=== PATIENT | female | born 1940 | race Caucasian/White ===

== ENCOUNTER 2018-09-08 17:31 | Inpatient (IN) | END 2018-09-22 21:05 | DRG 981 ==

== ENCOUNTER 2018-10-05 06:46 | Inpatient (IN) | payer MEDICARE, OTHER ==
[~2018-10-05] VITALS: Ht 152.4 cm; Wt 60.6 kg
[2018-10-05] VITALS (62 sets, daily range): BP systolic 62–161; BP diastolic 28–91; PULSE 75–94; RESP 14–32; Ht 152.4 cm; Wt 60.6 kg
[~2018-10-05 06:46] MED LIST: ACET325T45 PO; AMIN30LI PO; ASPI-903 PO; ATOR-2 PO; CALC-686 PO; CARV12.579 PO; CHOL100062 PO; CLOP75TA19 PO; DEXT1DRO7 OP; FER325 PO; FLUT16SP17 NASAL; FOLI-49 PO; GLUC1KIT IJ; HYDR-3671 PO; HYDR-3672 PO; HYDR-4011 PO; INSU100C SQ; LACT10SO5 PO; LEVO50TA7 PO; LOSA100T15 PO; NEPH PO; PANT40TA4 PO; POLY17PO28 PO; VIT1TAB.4 PO; VIT1TABL46 PO; ZINC220T PO
[2018-10-05] MEDS ORDERED: SODIUM CHLORIDE 0.9% 1L BAG IV* STA (06:48)
[2018-10-05] MEDS ORDERED: VANCOMYCIN 1 GM (PMX) 250 ML IVPB STA (06:50)
[2018-10-05] MEDS ORDERED: CEFEPIME 2GM/50 ML (PMX) 50 ML IVPB STA (06:50)
[2018-10-05] MEDS ORDERED: NORepinephrine 8MG/250 ML (PMX 250 ML IV STA (06:50)
[2018-10-05] MEDS ORDERED: NORepinephrine 8MG/250 ML (PMX 250 ML ONE (06:54)
[2018-10-05] MEDS ORDERED: EPINEPHrine 0.1 MG/ML SYG ONE (07:00)
[2018-10-05] MEDS ORDERED: ROCURONIUM 50 MG INJ ONE (07:00)
[2018-10-05] MEDS ORDERED: NA BICARBONATE 8.4% 50 ML SYG ONE (07:00)
[2018-10-05] MEDS ORDERED: PROPOFOL 100 ML IV STA (07:30)
[2018-10-05] MEDS ORDERED: HYDR-4011 PO (08:19)
[2018-10-05] MEDS ORDERED: DEXT15DR4 BOTH EYES (08:20)
[2018-10-05] MEDS ORDERED: VANCOMYCIN IV PER PHARMACY XX SCH (09:00)
[2018-10-05] MEDS ORDERED: HEPARIN 5,000 UNIT/1 ML VIAL SC SCH ×2 (09:00→13:24)
[2018-10-05] MEDS ORDERED: ONDANSETRON 4 MG INJ IV PRN (09:00)
[2018-10-05] MEDS ORDERED: DOCUSATE SODIUM 100 MG CAP PO PRN (09:00)
[2018-10-05] MEDS ORDERED: ACETAMINOPHEN 650MG/20.3ML CUP PO PRN (09:00)
--- NOTE | 2018-10-05 09:10 | ERD ---
ER Documentation Chief Complaint Chief Complaint BIBA FOR RESPIRATORY DISTRESS FROM SNF HPI This is a 78-year-old female with a history of hypertension, renal failure on dialysis, diabetes who presents brought in from a intermediate facility for hypoxia and altered mental state. Patient was brought in by EMS, she presented technically hypoxic with an O2 sat in the 80s, history was limited given the acuity of her condition. She was initially trialed on BiPAP, pending preparation for intubation, she subsequently lost pulses, CPR was initiated for approximately 5 minutes, and she was intubated, subsequently ROSC was achieved. ROS All systems reviewed and are negative except as per history of present illness. Medications Home Meds Reported Medications Dextran 70/Hypromellose (Artificial Tears Eye Drops) 15 Ml Drops, 1 DROP BOTH EYES TID, BOTTLE 10/05/18 Hydrocodone/Acetaminophen (Divide 5-325 Tablet) 1 Each Tablet, 1 EACH PO Q4 PRN for MODERATE PAIN LEVEL 4-6, TAB 10/05/18 Atorvastatin* (Atorvastatin*) 80 Mg Tablet, 80 MG PO QHS, #30 TAB 09/08/18 Vitamin B Complex* (Vitamin B Complex*) 1 Each Tablet, 1 TAB PO DAILY, TAB 09/08/18 Ferrous Sulfate* (Ferrous Sulfate*) 325 Mg Tabec, 325 MG PO DAILY, TAB 09/08/18 Zinc Sulfate* (Zinc Sulfate*) 220 Mg Tablet, 220 MG PO DAILY, TAB 09/08/18 Cholecalciferol* (Vitamin D3*) 1,000 Unit Tablet, 2000 UNIT PO DAILY, TAB 09/08/18 Multivit/Ca Carb/B Cmplx/Fa* (Lizzy-Juanpablo*) 1 Tab Tab, 1 TAB PO DAILY, TAB 09/08/18 Folic Acid* (Folic Acid*) 1 Mg Tablet, 1 MG PO DAILY, TAB 09/08/18 Fluticasone Propionate* (Fluticasone Propionate* Nasal) 50 Mcg/Berry - 16 Gm Berry.susp, 1 SPRAY NASAL DAILY, #1 BOTTLE TO EACH NOSTRIL 09/08/18 Aspirin* (Aspirin* Chew) 81 Mg Tab.chew, 81 MG PO DAILY, TAB.CHEW 09/08/18 Clopidogrel Bisulfate* (Clopidogrel Bisulfate*) 75 Mg Tablet, 75 MG PO DAILY, #30 TAB 09/08/18 Vit B Complex & C No.13/Fa/D3 (NEPHROCAPS QT TABLET) 1 Each Tab.rapdis, 1 EACH PO BID 09/08/18 Hydralazine Hcl* (Hydralazine Hcl*) 50 Mg Tab, 50 MG PO TID, #90 TAB 09/08/18 Glucagon,Human Recombinant (Glucagon Emergency Kit) 1 Mg Kit, 1 MG IJ Q8H PRN for NEEDED, KIT 09/08/18 Acetaminophen* (Acetaminophen*) 325 Mg Tablet, 650 MG PO Q4H PRN for MILD PAIN LEVEL 1-3, #30 TAB AND FEVER GREATER THAN 100 DEGREES 09/08/18 Polyethylene Glycol* (Polyethylene Glycol*) 17 Gm Powd.pack, 17 GM PO BID, #60 PACKET 09/08/18 Lactulose* (Lactulose*) 10 Gm/15 Ml Solution, 15 ML PO BID, ML 09/08/18 Calcium Carbonate/Vitamin D3 (Calcium 500 mg Chewable Tablet) 1 Each Tab.chew, 1 EACH PO QHS, TAB.CHEW 09/08/18 Losartan Potassium* (Losartan Potassium*) 100 Mg Tablet, 100 MG PO DAILY, TAB 09/08/18 Hydralazine Hcl* (Hydralazine Hcl*) 25 Mg Tab, 25 MG PO Q6H PRN for HTN, #60 TAB 09/08/18 Amino Acids/Protein Hydrolys (PRO-STAT LIQUID) 30 Ml Liquid.pkt, 30 ML PO BID SUGAR FREE 09/08/18 Carvedilol* (Carvedilol*) 12.5 Mg Tablet, 12.5 MG PO BID, #60 TAB 09/08/18 Insulin Lispro (Humalog) 100 Unit/1 Ml Cartridge, 0 SQ SLIDING SCALE, EA IF BS 150-199=2 UNITS,200-249=3 UNITS,250-299=5 UNITS, 300-350=7 UNITS, OVER 350=10 UNITS, NOTIFY MD IF BS- BELOW 60 OR ABOVE-350 09/08/18 Levothyroxine Sodium* (Levothyroxine Sodium*) 50 Mcg Tablet, 50 MCG PO BEFORE BREAKFAST, #30 TAB 09/08/18 Pantoprazole* (Pantoprazole*) 40 Mg Tablet.dr, 40 MG PO AC BREAKFAST, TAB 09/08/18 Discontinued Reported Medications Dextran 70/Hypromellose/Pf (ARTIFICIAL TEARS DROPS) 1 Each Droperette, 1 EACH OP TID 09/08/18 Hydrocodone/Acetaminophen (Divide 5-325 Tablet) 1 Each Tablet, 1 EACH PO Q4H PRN for PAIN 4-03/12, TAB 09/08/18 Allergies Allergies: Coded Allergies: codeine (Verified Allergy, Mild, ANXIETY, 10/05/18) milk (Verified Allergy, Mild, GAS, 10/05/18) albuterol (Unverified Allergy, Unknown, 10/05/18) amlodipine (Unverified Allergy, Unknown, 10/05/18) clonidine (Unverified Allergy, Unknown, 10/05/18) diazepam (Unverified Allergy, Unknown, 10/05/18) diphenhydramine (Unverified Allergy, Unknown, 10/05/18) melatonin (Unverified Allergy, Unknown, 10/05/18) Uncoded Allergies: HEPARIN SODIUM (Allergy, Unknown, 09/08/18) NIFEDIPINE ER (Allergy, Unknown, 09/08/18) PMhx/Soc History of Surgery: Yes (hip surgery, eye surgery, left toes amputation. right knee surgery) Anesthesia Reaction: No Hx Neurological Disorder: No Hx Respiratory Disorders: No Hx Cardiac Disorders: Yes (HTN) Hx Psychiatric Problems: No Hx Miscellaneous Medical Probl: Yes (DM ESRD ON HD) Hx Alcohol Use: No (UNK) Hx Substance Use: No (UNK) Hx Tobacco Use: No (UNK) Smoking Status: Unknown if ever smoked Physical Exam Vitals Vital Signs Date Temp Pulse Resp B/P (MAP) Pulse Ox O2 O2 Flow FiO2 Time Delivery Rate 10/05/18 84 25 108/43 100 Mechanical 09:00 (64) Ventilator 10/05/18 92 24 138/46 100 Mechanical 08:45 (76) Ventilator 10/05/18 99.1 89 5 79/34 (49) 78 08:08 10/05/18 90 21 100 100 08:08 Physical Exam Const: Patient altered, ill-appearing, hot to the touch Head: Atraumatic Eyes: Normal Conjunctiva ENT: Normal External Ears, Nose and Mouth. Neck: Full range of motion. No meningismus. Resp: Coarse breath sounds bilaterally Cardio: Regular rate and rhythm, no murmurs Abd: Soft, non tender, non distended. Normal bowel sounds Skin: No petechiae or rashes Back: No midline or flank tenderness Ext: No cyanosis, or edema Neur: Minimally responsive Result Diagram: 10/05/18 0759 10/05/18 0759 Results 24 hrs Laboratory Tests Test 10/05/18 07:59 10/05/18 08:00 10/05/18 08:04 10/05/18 09:12 White Blood 27.9 10^3/ul Count Red Blood Count 2.83 10^6/ul Hemoglobin 8.2 g/dl Hematocrit 28.5 % Mean Corpuscular 100.7 fl Volume Mean Corpuscular 29.0 pg Hemoglobin Mean Corpuscular 28.8 g/dl Hemoglobin Meredith nt Red Cell 23.1 % Distribution Width Platelet Count 317 10^3/UL Mean Platelet 9.0 fl Volume Immature 1.300 % Granulocytes % Neutrophils % % Lymphocytes % % Monocytes % % Eosinophils % % Basophils % % Nucleated Red 1.7 /100WBC Blood Cells % Immature 0.350 10^3/ul Granulocytes # Neutrophils # 10^3/ul Lymphocytes # 10^3/ul Monocytes # 10^3/ul Eosinophils # 10^3/ul Basophils # 10^3/ul Nucleated Red 10^3/ul Blood Cells # Prothrombin Time 16.0 Sec Prothrombin Time 1.3 Ratio INR 1.27 International Normalized Ratio Activated 46.3 Sec Partial Thrombop last Time Sodium Level 138 mmol/L Potassium Level 3.8 mmol/L Chloride Level 103 mmol/L Carbon Dioxide 26 mmol/L Level Anion Gap 9 Blood Urea 39 mg/dl Nitrogen Creatinine 3.36 mg/dl Est Glomerular mL/min Filtrat Rate mL/min Glucose Level 207 mg/dl Calcium Level 8.7 mg/dl Troponin I 0.027 ng/ml Urine Color YELLOW Urine Clarity TURBID Urine pH 5.0 Urine Specific 1.021 [place] Urine Ketones NEGATIVE mg/dL Urine Nitrite NEGATIVE mg/dL Urine Bilirubin NEGATIVE mg/dL Urine NEGATIVE mg/dL Urobilinogen Urine Leukocyte 1+ Joan/ul Esterase Urine 27 /HPF Microscopic RBC Urine > 182 /HPF Microscopic WBC Urine Squamous FEW /HPF Epithelial Cells Urine Bacteria MANY /HPF Urine Hemoglobin 1+ mg/dL Urine Glucose NEGATIVE mg/dL Urine Total 2+ mg/dl Protein Blood Gas Blood arterial Specimen Source Arterial Blood 10/05/2018 8:38:3 Date Drawn 7 AM Arterial Blood 7.401 pH (Temp corrected) Arterial Blood 42.8 mmhg pCO2 (Temp correct) Arterial Blood 246.8 mmHG pO2 (Temp corrected) Arterial Blood 26.0 mmol/L HCO3 Arterial Blood 1.0 mmol/L Base Excess Arterial Blood 99.9 mmHG Oxygen Saturatio n Jacinto Test ACCEPTAB Arterial Blood Left Radial Gas Puncture Site Arterial 1.2 % Blood Carboxyhem oglobin Arterial Blood 0.3 % Methemoglobin Blood Gas A-a O2 423.4 mmHg Differential Oxyhemoglobin 98.4 % Percent Blood Gas 37.0 C Temperature Blood Gas 14.0 Respiration Rate Blood Gas Actual 22 Respiration Rate Blood Gas VENT - AC Modality FiO2 100.0 % Blood Gas Tidal 450.0 mL Volume Blood Gas Low 5.0 cmH2O PEEP Setting Blood Gas M.D. Notified Whom Blood Gas 10/05/2018 8:50:1 Notified Time 6 AM POC Venous 2.4 mmol/L Lactate Current Medications Medications Dose Sig/Brie Start Time Status Last (Trade) Ordered Route PRN Stop Time Admin Dose Reason Admin Sodium 1,000 ml BOLUS OVER 2 10/05/18 DC 10/05/18 Chloride HOURS STAT 06:48 10/05/18 07:53 (NS) IV* 06:51 250 ml @ ONCE STAT 10/05/18 10/05/18 Norepinephrin 7.5 mls/hr IV 06:50 10/06/18 07:56 e 16:09 Vancomycin 250 ml @ ONCE STAT 10/05/18 DC 10/05/18 HCl 125 mls/hr IVPB 06:50 10/05/18 06:50 08:49 Cefepime HCl 50 ml @ ONCE STAT 10/05/18 DC 10/05/18 100 mls/hr IVPB 06:50 10/05/18 07:59 07:19 250 ml @ ud STK-MED 10/05/18 DC Norepinephrin ONCE .ROUTE 06:54 10/05/18 e 06:55 Propofol 100 ml @ ONCE STAT 10/05/18 10/05/18 1.8 mls/hr IV 07:30 10/07/18 08:04 15:03 Sodium 1,000 ml @ Q20H IV 10/05/18 UNV Chloride 50 mls/hr 08:53 Ondansetron 4 mg Q6H PRN 10/05/18 UNV HCl (Zofran IV NAUSEA 09:00 Inj) AND/OR VOMITING 650 mg Q6H PRN 10/05/18 UNV Acetaminophen PO PAIN 09:00 (Tylenol LEVEL 1-3 OR Liquid) FEVER Docusate 100 mg Q12H PRN 10/05/18 UNV Sodium PO 09:00 (Colace) CONSTIPATION 40 mg DAILY@06 10/06/18 UNV Pantoprazole IV 06:00 (Protonix Iv) Heparin 5,000 unit Q12 SC 10/05/18 UNV Sodium 09:00 (Porcine) (Heparin (5000 Units/1ml)) Vancomycin VANCOMYCIN PER 10/05/18 UNV HCl (Vanco PER PHARMACY PROTOCOL XX 09:00 Iv Per Pharmacy) Piperacillin 50 ml @ Q8 IVPB 10/05/18 UNV Sod/ 100 mls/hr 14:00 Tazobactam Sod Procedures/MDM This is a 78-year-old female who presented brought in by EMS. She is evaluated immediately, and I observed her to be in shock, with hypoxia, hypotension and altered mental state. As noted above CPR was initiated, and return of spontaneous circulation was achieved, she was subsequently intubated and started on pressor support and given broad-spectrum antibiotics. Her urine returned positive, my overall impression is that she likely has urosepsis, which may have contributed to an aspiration event leading to hypoxia. She will be admitted to the ICU under Dr. Donahue. Sepsis Documentation: Patient's infectious symptoms have not stabilized and the patient is at risk of rapid decompensation. The patient will be admitted for careful hydration, antibiotic therapy, and infectious source control. SEVERE SEPSIS CRITERIA: Infectious source: Pyelonephritis End organ damage indicated by: Lactate greater than 2 and hypotension SEPSIS MANAGEMENT Time of recognition of sepsis: [Upon arrival]. Time of recognition of severe sepsis: [Upon arrival]. Time of recognition of septic shock: [Upon arrival]. 3 HOUR BUNDLE Blood cultures x 2 before broad-spectrum antibiotics: [Yes] 30 ml/kg NS bolus [Completed] Initial lactate [2.4] Repeat lactate pending SEPTIC SHOCK ASSESSMENT: [Yes] Persistent hypotension (SBP < 90 or 40 mmHg drop, MAP < 65) despite 30 mL/kg IV fluid bolus VOLUME REASSESSMENT FOR SEPTIC SHOCK: Reevaluation Time: 916 Temp [99 3], BP 108/63, HR [80, RR[25, Pox [100 Heart [Regular rate & rhythm] Lungs [No crackles] Skin [Warm & dry] Cap Refill [Less than 2 seconds] Peripheral pulses [Radially present] PERSISTENT HYPOTENSION TREATMENT: Comfort care [No] Central line [yes Vasopressor started [yes] I considered further perfusion assessment with CVP measurement, SCVO2, bedside ultrasound volume assessment, passive leg raise, trial of further fluid bolus. And proceeded with administration of antibiotics, vasopressors, and admission to the ICU CRITICAL CARE Critical care time [35] minutes Emergent fluid management while maintaining close respiratory support. Provision of immediate and broad-spectrum antibiotic therapy. Simultaneous assessment for possible sources in order to direct targeted therapy. Consideration for invasive and chemical support to prevent cardiopulmonary collapse. Critical care time is independent of procedures performed. Departure Diagnosis: Primary Impression: Respiratory distress Additional Impressions: Septic shock Pyelonephritis Condition: Critical CATARINO AUGUSTINE MD Oct 05, 2018 09:10
[2018-10-05] MEDS ORDERED: PIPER-TAZO 2.25 GM (PMX) 50 ML IVPB SCH (10:00)
--- NOTE | 2018-10-05 10:20 | HP ---
Date/Time of Note Date/Time of Note DATE: 10/05/18 TIME: 09:55 Assessment/Plan VTE Prophylaxis Pharmacological prophylaxis: heparin Lines/Catheters IV Catheter Type (from Nrsg): Central Line Central line still needed: Yes Urinary Cath still in place: Yes (INSERTED IN ED) Reason Cath still needed: other (indicate) Assessment/Plan Assessment/Plan 78 yo F with hx of Sacral decubiti stage 4, ESRD, DM2 and History of right knee fracture status post total knee arthroplasty with subsequent infection and removal of hardware who was sent from SNF for hypoxia. She was intubated in the ER and is requiring pressor support. She briefly arrested in ER amd was brought back. She is admitted to ICU and managed as follows: 1. Acute resp failure likely 2/2 to #2 -intubated and on Ventilator -patient may have aspirated, has copious drainage from NGT 2. Transient cardiac arrest with ROSC in ER -No hypothermia protocol at this time as patient was somewhat responsive though not alert 3. Sepsis with Shock -likely 2/2 UTI and probable DTI infection 4. ESRD on HD 5 Diabetes type 2 -Hyperglycemic on arrival, SSI for now till started on a diet -close monitoring and intervention as indicated 6. Multiple drug allergies -Nifedipine, Heparin, amlodipine, clonidine, diazepam, benadryl, melatonin 7. 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 Anemia of CKD -continue home iron and folic acid supplementation 9. Hypothyrodism -resume home synthroid, Last TSH was 2007, will recheck 10. History of right knee fracture status post total knee arthroplasty with subsequent infection and removal of hardware -Knee replacement and removal were done at an outside hospital - Maintain leg in extension per Dr Hedrick recommendations on last visit 11. Chronic constipation? -resume miralax gently, hold lactulose for now 12. Severe debility, FTT, diffuse msc wasting Dispo: -poor prognosis in [facility] [facility], spoke in detail with daughters -they will consider DNR now, I recommend comfort measures only as further aggressive intervention will not necessarily prolong the patient's life, they will discuss and get back to us -continue ICU care and support Result Diagram: 10/05/18 0759 10/05/18 0759 Results 24hrs Laboratory Tests Test 10/05/18 07:59 10/05/18 08:00 10/05/18 08:04 10/05/18 09:12 White Blood Count 27.9 #H Red Blood Count 2.83 L Hemoglobin 8.2 L Hematocrit 28.5 L Mean Corpuscular 100.7 Volume Mean Corpuscular 29.0 Hemoglobin Mean Corpuscular 28.8 L Hemoglobin Concent Red Cell 23.1 H Distribution Width Platelet Count 317 Mean Platelet 9.0 Volume Immature 1.300 H Granulocytes % Neutrophils % Lymphocytes % Monocytes % Eosinophils % Basophils % Nucleated Red 1.7 H Blood Cells % Immature 0.350 H Granulocytes # Neutrophils # Lymphocytes # Monocytes # Eosinophils # Basophils # Nucleated Red Blood Cells # Prothrombin Time 16.0 H Prothrombin Time 1.3 Ratio INR International 1.27 Normalized Ratio Activated 46.[address] Time Sodium Level 138 Potassium Level 3.8 Chloride Level 103 Carbon Dioxide 26 Level Anion Gap 9 Blood Urea 39 H Nitrogen Creatinine 3.36 H Est Glomerular Filtrat Rate mL/min Glucose Level 207 Calcium Level 8.7 Troponin I 0.027 Urine Color YELLOW Urine Clarity TURBID A Urine pH 5.0 Urine Specific 1.021 [place] Urine Ketones NEGATIVE Urine Nitrite NEGATIVE Urine Bilirubin NEGATIVE Urine Urobilinogen NEGATIVE Urine Leukocyte 1+ H Esterase Urine Microscopic 27 H RBC Urine Microscopic > 182 H WBC Urine Squamous FEW Epithelial Cells Urine Bacteria MANY A Urine Hemoglobin 1+ H Urine Glucose NEGATIVE Urine Total 2+ H Protein Blood Gas Specimen Blood arterial Source Arterial Blood 10/05/2018 8:38:37 Date Drawn AM Arterial Blood pH 7.401 (Temp corrected) Arterial Blood 42.8 pCO2 (Temp correct) Arterial Blood pO2 246.8 H (Temp corrected) Arterial Blood 26.0 HCO3 Arterial Blood 1.0 Base Excess Arterial Blood 99.9 Oxygen Saturation [place]into Test ACCEPTAB Arterial Blood Gas Left Radial Puncture Site Arterial 1.2 Blood Carboxyhemog lobin Arterial Blood 0.3 Methemoglobin Blood Gas A-a O2 423.4 H Differential Oxyhemoglobin 98.4 Percent Blood Gas 37.0 Temperature Blood Gas 14.0 Respiration Rate Blood Gas Actual 22 Respiration Rate Blood Gas Modality VENT - AC FiO2 100.0 Blood Gas Tidal 450.0 Volume Blood Gas Low PEEP 5.0 Setting Blood Gas Notified Talya Gonzalez Blood Gas Notified 10/05/2018 8:50:16 Time AM POC Venous Lactate 2.4 *H HPI/ROS Admit Date/Time Admit Date/Time 10/05/18 Hx of Present Illness End-stage renal disease, diabetes, and a right knee fracture status post total knee arthroplasty with hardware placement and then subsequent infection and removal of hardware for which knee is in extension on the right side. The patient is chronically none ambulance but the daughters say she is usually able to at least talk and eat, and she was referred to the rehab unit for continued care until earlier today when she was noted to be short of breath and hypoxic. Apparently her appetite has also been waning the last few days. Not much more was able to be obtained. The patient did have a lot of secretions from her G- tube and as such the thought processes she may have aspirated causing her respiratory distress. She had a transient cardiac arrest in the emergency room and was resuscitated with return of spontaneous circulation, she is currently ventilated and requiring pressor support.UA suggestive of UTI. Stage 4 sacral decubiti was debrided last admission. . ROS Subjective hx not possible: pt critical status PMH/Family/Social Past Medical History Sacral decubiti stage 4, ESRD, DM2 History of right knee fracture status post total knee arthroplasty with subseq uent infection and removal of hardware Medications Current Medications Norepinephrine 250 ml @ 7.5 mls/hr ONCE STAT IV Last administered on 10/05/18at 07:56; Admin Dose 9.375 MLS/HR; Start 10/05/18 at 06:50; Stop 10/06/18 at 16:09 Propofol 100 ml @ 1.8 mls/hr ONCE STAT IV Last administered on 10/05/18at 08:04; Admin Dose 1.8 MLS/HR; Start 10/05/18 at 07:30; Stop 10/07/18 at 15:03 Sodium Chloride 1,000 ml @ 50 mls/hr Q20H IV ; Start 10/05/18 at 08:53 Ondansetron HCl (Zofran Inj) 4 mg Q6H PRN IV NAUSEA AND/OR VOMITING; Start 10/05/18 at 09:00 Acetaminophen (Tylenol Liquid) 650 mg Q6H PRN PO PAIN LEVEL 1-3 OR FEVER; Start 10/05/18 at 09:00 Docusate Sodium (Colace) 100 mg Q12H PRN PO CONSTIPATION; Start 10/05/18 at 09:00 Pantoprazole (Protonix Iv) 40 mg DAILY@06 IV ; Start 10/06/18 at 06:00 Vancomycin HCl (Vanco Iv Per Pharmacy) VANCOMYCIN PER PHARMACY PER PROTOCOL XX ; Start 10/05/18 at 09:00; Status UNV Piperacillin Sod/ Tazobactam Sod 50 ml @ 100 mls/hr Q8 IVPB ; Start 10/05/18 at 10:00 Heparin Sodium (Porcine) (Heparin (5000 Units/1ml)) 5,000 unit Q12 SC ; Start 10/05/18 at 10:00; Status UNV Coded Allergies: codeine (Verified Allergy, Mild, ANXIETY, 10/09/18) milk (Verified Allergy, Mild, GAS, 10/09/18) albuterol (Verified Allergy, Unknown, 10/09/18) amlodipine (Verified Allergy, Unknown, 10/09/18) clonidine (Verified Allergy, Unknown, 10/09/18) diazepam (Verified Allergy, Unknown, 10/09/18) diphenhydramine (Verified Allergy, Unknown, 10/09/18) melatonin (Verified Allergy, Unknown, 10/09/18) Uncoded Allergies: HEPARIN SODIUM (Allergy, Unknown, 09/08/18) NIFEDIPINE ER (Allergy, Unknown, 09/08/18) Past Surgical History see above Past Surgical Hx: other Family History Significant Family History: no pertinent family hx Social History Smoking Status: Unknown if ever smoked Exam/Review of Systems Vital Signs Vitals Vital Signs Date Temp Pulse Resp B/P (MAP) Pulse Ox O2 O2 Flow FiO2 Time Delivery Rate 10/05/18 81 25 98/44 (62) 100 Mechanical 09:15 Ventilator 10/05/18 99.1 08:08 10/05/18 100 08:08 Exam Exam GENERAL: Intubated and sedated HEENT: VINCENT, Intubated, Vent settings noted , LUNGS: diffusely diminished and coarse BS HEART: S1, S2. No murmur, gallops or rubs. ABDOMEN: Soft, non distended, Normoactive bowel sounds. GENITOURINARY: Normal female external genitalia wilt mild vulval edema, Teixeira to bedside drainage EXTREMITIES: diffuse msc wasting, has jamal UE edema and anasarca in abd and UE NEUROLOGIC: The patient will try to open eyes off propofol SKIN: diffuses ecchymosis and skin tears, see pictures for sacral Ulcer YOEL DAVILA Oct 05, 2018 10:11
[2018-10-05] MEDS: SOD CHLORIDE 0.9% 1,000 ML IV SCH (10:44)
--- NOTE | 2018-10-05 11:05 | CONS ---
Date/Time of Note Date/Time of Note DATE: 10/05/18 TIME: 10:59 Assessment/Plan Assessment/Plan Assessment/Plan Chest x-ray showing bibasilar pneumonia. Ventilator setting; AC of 16, tidal volume 450, PEEP of 5, 60% FiO2. Assessment recommendations; 1. Patient admitted with respiratory failure with severe sepsis from UTI as well as bilateral lower lobe pneumonia. Currently on appropriate antimicrobial regimen. Requiring support with Levophed. 2. Advanced dementia. 3. Multiple sacral ulcers. Possibly another source of infection. 4. Status post 5 minutes CPR. 5. Chronic renal failure, on hemodialysis. Continue current supportive care. Hemodialysis per chandelier maker. Obtain follow-up chest x-ray 24 hours. Wean off pressor support as tolerated. Further antibiotic adjustment to be done once culture results are obtained. Patient already has multiple sources of infection. 40 minutes of critical care time was spent evaluating the patient. Result Diagram: 10/05/18 0759 10/05/18 0759 Results 24hrs Laboratory Tests Test 10/05/18 07:59 10/05/18 08:00 10/05/18 08:04 10/05/18 09:12 White Blood Count 27.9 #H Red Blood Count 2.83 L Hemoglobin 8.2 L Hematocrit 28.5 L Mean Corpuscular 100.7 Volume Mean Corpuscular 29.0 Hemoglobin Mean Corpuscular 28.8 L Hemoglobin Concent Red Cell 23.1 H Distribution Width Platelet Count 317 Mean Platelet 9.0 Volume Immature 1.300 H Granulocytes % Neutrophils % Segmented 65 Neutrophils % (Manual) Band Neutrophils % 22 H (Manual) Lymphocytes % Lymphocytes % 10 L (Manual) Monocytes % Monocytes % 3 (Manual) Eosinophils % Basophils % Nucleated Red 5 H Blood Cells % Immature 0.350 H Granulocytes # Neutrophils # Neutrophils # 19.8 H (Manual) Band Neutrophils # 6.1 H Lymphocytes 2.7 (Manual) Lymphocytes # Monocytes # Monocytes # 0.8 (Manual) Eosinophils # Basophils # Nucleated Red Blood Cells # Platelet Estimate NORMAL Polychromasia 1+ Poikilocytosis 2+ Anisocytosis 1+ Macrocytosis 1+ Prothrombin Time 16.0 H Prothrombin Time 1.3 Ratio INR International 1.27 Normalized Ratio Activated 46.[address] Time Sodium Level 138 Potassium Level 3.8 Chloride Level 103 Carbon Dioxide 26 Level Anion Gap 9 Blood Urea 39 H Nitrogen Creatinine 3.36 H Est Glomerular Filtrat Rate mL/min Glucose Level 207 Calcium Level 8.7 Troponin I 0.027 Urine Color YELLOW Urine Clarity TURBID A Urine pH 5.0 Urine Specific 1.021 [place] Urine Ketones NEGATIVE Urine Nitrite NEGATIVE Urine Bilirubin NEGATIVE Urine Urobilinogen NEGATIVE Urine Leukocyte 1+ H Esterase Urine Microscopic 27 H RBC Urine Microscopic > 182 H WBC Urine Squamous FEW Epithelial Cells Urine Bacteria MANY A Urine Hemoglobin 1+ H Urine Glucose NEGATIVE Urine Total 2+ H Protein Blood Gas Specimen Blood arterial Source Arterial Blood 10/05/2018 8:38:37 Date Drawn AM Arterial Blood pH 7.401 (Temp corrected) Arterial Blood 42.8 pCO2 (Temp correct) Arterial Blood pO2 246.8 H (Temp corrected) Arterial Blood 26.0 HCO3 Arterial Blood 1.0 Base Excess Arterial Blood 99.9 Oxygen Saturation Jacinto Test ACCEPTAB Arterial Blood Gas Left Radial Puncture Site Arterial 1.2 Blood Carboxyhemog lobin Arterial Blood 0.3 Methemoglobin Blood Gas A-a O2 423.4 H Differential Oxyhemoglobin 98.4 Percent Blood Gas 37.0 Temperature Blood Gas 14.0 Respiration Rate Blood Gas Actual 22 Respiration Rate Blood Gas Modality VENT - AC FiO2 100.0 Blood Gas Tidal 450.0 Volume Blood Gas Low PEEP 5.0 Setting Blood Gas Notified M.D. Whom Blood Gas Notified 10/05/2018 8:50:16 Time AM POC Venous Lactate 2.4 *H Consultation Date/Type/Reason Admit Date/Time 10/05/18 Date of Consultation: Oct 05, 2018 Type of Consult Pulmonary/critical care History of presenting illness; patient is a 78-year-old woman who was transferred to ER from long term with hypotension. Upon further evaluation patient is been diagnosed with bilateral pneumonia as well as UTI with sepsis. Patient has been adequately fluid resuscitated but still requiring Levophed for hypotension. Patient has history of chronic encephalopathy and is currently under sedation. Past medical history; 1. History of dementia and chronic encephalopathy. 2. History of diabetes and hypothyroidism. Medications; reviewed. Patient is currently on Levophed at 11 mics per minute. Propofol at 10 mics per kilogram per minute. Allergies; as outlined above. Social history; not available. Family history; not available. Occupational history; not available. Review of system; unable to be obtained. General exam; elderly woman, orally intubated, sedated, currently in no distress. Past Medical History Medications Current Medications Norepinephrine 250 ml @ 7.5 mls/hr ONCE STAT IV Last administered on 10/05/18at 07:56; Admin Dose 9.375 MLS/HR; Start 10/05/18 at 06:50; Stop 10/06/18 at 16:09 Propofol 100 ml @ 1.8 mls/hr ONCE STAT IV Last administered on 10/05/18at 08:04; Admin Dose 1.8 MLS/HR; Start 10/05/18 at 07:30; Stop 10/07/18 at 15:03 Sodium Chloride 1,000 ml @ 50 mls/hr Q20H IV Last administered on 10/05/18at 10:44; Admin Dose 50 MLS/HR; Start 10/05/18 at 08:53 Ondansetron HCl (Zofran Inj) 4 mg Q6H PRN IV NAUSEA AND/OR VOMITING; Start 10/05/18 at 09:00 Acetaminophen (Tylenol Liquid) 650 mg Q6H PRN PO PAIN LEVEL 1-3 OR FEVER; Start 10/05/18 at 09:00 Docusate Sodium (Colace) 100 mg Q12H PRN PO CONSTIPATION; Start 10/05/18 at 09:00 Pantoprazole (Protonix Iv) 40 mg DAILY@06 IV ; Start 10/06/18 at 06:00 Heparin Sodium (Porcine) (Heparin (5000 Units/1ml)) 5,000 unit Q12 SC ; Start 10/05/18 at 10:00; Status UNV Aspirin (Aspirin) 81 mg DAILY PO ; Start 10/06/18 at 09:00; Status UNV Atorvastatin Calcium (Lipitor) 80 mg QHS PO ; Start 10/05/18 at 21:00; Status UNV Cholecalciferol (Vitamin D) 2,000 unit DAILY PO ; Start 10/06/18 at 09:00; Status UNV Clopidogrel Bisulfate (plaVIX) 75 mg DAILY PO ; Start 10/06/18 at 09:00; Status UNV Ferrous Sulfate (Ferrous Sulfate (Ec)) 325 mg BID PO ; Start 10/05/18 at 21:00; Status UNV Folic Acid (Folic Acid) 1 mg DAILY PO ; Start 10/06/18 at 09:00; Status UNV Levothyroxine Sodium (Synthroid) 50 mcg BEFORE BREAKFAST PO ; Start 10/06/18 at 07:00; Status UNV Multivit/Ca Carb/ B Cmplx/FA/Prenat (Lizzy-Juanpablo) 1 tab DAILY PO ; Start 10/06/18 at 09:00; Status UNV Polyethylene Glycol (Miralax) 17 gm DAILY PO ; Start 10/06/18 at 09:00; Status UNV Vitamin B Complex/ Vitamin C (Berocca) 1 cap DAILY PO ; Start 10/06/18 at 09:00; Status UNV Zinc Sulfate (Zinc Sulfate) 220 mg DAILY PO ; Start 10/06/18 at 09:00; Status UNV Miscellaneous Information 30 ml BID PO ; Start 10/05/18 at 21:00; Status UNV Miscellaneous Information 1 each QHS PO ; Start 10/05/18 at 21:00; Status UNV Miscellaneous Information 1 drop TID BOTH EYES ; Start 10/05/18 at 13:00; Status UNV Linezolid 300 ml @ 300 mls/hr Q12 IVPB ; Start 10/05/18 at 21:00; Status UNV Meropenem/Sodium Chloride 50 ml @ 100 mls/hr Q12 IVPB ; Start 10/05/18 at 11:00; Status UNV Allergies: Coded Allergies: codeine (Verified Allergy, Mild, ANXIETY, 10/05/18) milk (Verified Allergy, Mild, GAS, 10/05/18) albuterol (Unverified Allergy, Unknown, 10/05/18) amlodipine (Unverified Allergy, Unknown, 10/05/18) clonidine (Unverified Allergy, Unknown, 10/05/18) diazepam (Unverified Allergy, Unknown, 10/05/18) diphenhydramine (Unverified Allergy, Unknown, 10/05/18) melatonin (Unverified Allergy, Unknown, 10/05/18) Uncoded Allergies: HEPARIN SODIUM (Allergy, Unknown, 09/08/18) NIFEDIPINE ER (Allergy, Unknown, 09/08/18) Past Surgical History Past Surgical Hx: other Social History Smoking Status: Unknown if ever smoked Exam/Review of Systems Vital Signs Vitals Vital Signs Date Temp Pulse Resp B/P (MAP) Pulse Ox O2 O2 Flow FiO2 Time Delivery Rate 10/05/18 84 10:35 10/05/18 25 98/44 (62) 100 Mechanical 09:15 Ventilator 10/05/18 99.1 08:08 10/05/18 100 08:08 Exam HEENT exam; supple neck, no JVD. No lymphadenopathy. Midline trachea. No thyromegaly. Orally intubated. Patient has fair dentition. No neck masses. Pupils are small bilaterally. Chest exam; diminished breath sounds on bases. Upper lobes are clear. S1-S2 audible, no murmurs. Regular rhythm. Abdomen exam; soft, no organomegaly. Bowel sounds audible. Extremity exam; no peripheral edema. Patient has left middle toe amputations. DRUG COUNSELOR exam; patient is sedated. Medications Medications Current Medications Norepinephrine 250 ml @ 7.5 mls/hr ONCE STAT IV Last administered on 10/05/18at 07:56; Admin Dose 9.375 MLS/HR; Start 10/05/18 at 06:50; Stop 10/06/18 at 16:09 Propofol 100 ml @ 1.8 mls/hr ONCE STAT IV Last administered on 10/05/18at 08:04; Admin Dose 1.8 MLS/HR; Start 10/05/18 at 07:30; Stop 10/07/18 at 15:03 Sodium Chloride 1,000 ml @ 50 mls/hr Q20H IV Last administered on 10/05/18at 10:44; Admin Dose 50 MLS/HR; Start 10/05/18 at 08:53 Ondansetron HCl (Zofran Inj) 4 mg Q6H PRN IV NAUSEA AND/OR VOMITING; Start 10/05/18 at 09:00 Acetaminophen (Tylenol Liquid) 650 mg Q6H PRN PO PAIN LEVEL 1-3 OR FEVER; Start 10/05/18 at 09:00 Docusate Sodium (Colace) 100 mg Q12H PRN PO CONSTIPATION; Start 10/05/18 at 09:00 Pantoprazole (Protonix Iv) 40 mg DAILY@06 IV ; Start 10/06/18 at 06:00 Heparin Sodium (Porcine) (Heparin (5000 Units/1ml)) 5,000 unit Q12 SC ; Start 10/05/18 at 10:00; Status UNV Aspirin (Aspirin) 81 mg DAILY PO ; Start 10/06/18 at 09:00; Status UNV Atorvastatin Calcium (Lipitor) 80 mg QHS PO ; Start 10/05/18 at 21:00; Status UNV Cholecalciferol (Vitamin D) 2,000 unit DAILY PO ; Start 10/06/18 at 09:00; Status UNV Clopidogrel Bisulfate (plaVIX) 75 mg DAILY PO ; Start 10/06/18 at 09:00; Status UNV Ferrous Sulfate (Ferrous Sulfate (Ec)) 325 mg BID PO ; Start 10/05/18 at 21:00; Status UNV Folic Acid (Folic Acid) 1 mg DAILY PO ; Start 10/06/18 at 09:00; Status UNV Levothyroxine Sodium (Synthroid) 50 mcg BEFORE BREAKFAST PO ; Start 10/06/18 at 07:00; Status UNV Multivit/Ca Carb/ B Cmplx/FA/Prenat (Lizzy-Juanpablo) 1 tab DAILY PO ; Start 10/06/18 at 09:00; Status UNV Polyethylene Glycol (Miralax) 17 gm DAILY PO ; Start 10/06/18 at 09:00; Status UNV Vitamin B Complex/ Vitamin C (Berocca) 1 cap DAILY PO ; Start 10/06/18 at 09:00; Status UNV Zinc Sulfate (Zinc Sulfate) 220 mg DAILY PO ; Start 10/06/18 at 09:00; Status UNV Miscellaneous Information 30 ml BID PO ; Start 10/05/18 at 21:00; Status UNV Miscellaneous Information 1 each QHS PO ; Start 10/05/18 at 21:00; Status UNV Miscellaneous Information 1 drop TID BOTH EYES ; Start 10/05/18 at 13:00; Status UNV Linezolid 300 ml @ 300 mls/hr Q12 IVPB ; Start 10/05/18 at 21:00; Status UNV Meropenem/Sodium Chloride 50 ml @ 100 mls/hr Q12 IVPB ; Start 10/05/18 at 11:00; Status UNV VLAD MARTIN Oct 05, 2018 11:05
[2018-10-05] MEDS: LINEZOLID 600 MG/D5W (PMX) 300 ML IVPB SCH ×2 (12:41→22:08)
[2018-10-05] MEDS ORDERED: PENDING SANTYL ORDER FOR WOUND CARE XX PRN (13:00)
--- NOTE | 2018-10-05 13:22 | CONS ---
Date/Time of Note Date/Time of Note DATE: 10/05/18 TIME: 13:19 Assessment/Plan Assessment/Plan Assessment/Plan 78 yo Female with 1) Hypoxia with Respiratory Failure 2) Severe Sepsis 3) S/p Cardiac Arrest with ROSC 4) ESRD on HD 5) Anemia, Chronic CKD HD ordered for today Gentle treatment today Keep Even for now Repeat BMP, Lactic acid, Check Mg and phos Cont supportive Care, HD catheter Care. Levophed PRN for BP support Pt code status changed to DNR Thank you for the opportunity to participate in the care of Ms Augustus HENSLEY time spent >35 min. Result Diagram: 10/05/18 0759 10/05/18 0759 Results 24hrs Laboratory Tests Test 10/05/18 07:59 10/05/18 08:00 10/05/18 08:04 10/05/18 09:12 White Blood Count 27.9 #H Red Blood Count 2.83 L Hemoglobin 8.2 L Hematocrit 28.5 L Mean Corpuscular 100.7 Volume Mean Corpuscular 29.0 Hemoglobin Mean Corpuscular 28.8 L Hemoglobin Concent Red Cell 23.1 H Distribution Width Platelet Count 317 Mean Platelet 9.0 Volume Immature 1.300 H Granulocytes % Neutrophils % Segmented 65 Neutrophils % (Manual) Band Neutrophils % 22 H (Manual) Lymphocytes % Lymphocytes % 10 L (Manual) Monocytes % Monocytes % 3 (Manual) Eosinophils % Basophils % Nucleated Red 5 H Blood Cells % Immature 0.350 H Granulocytes # Neutrophils # Neutrophils # 19.8 H (Manual) Band Neutrophils # 6.1 H Lymphocytes 2.7 (Manual) Lymphocytes # Monocytes # Monocytes # 0.8 (Manual) Eosinophils # Basophils # Nucleated Red Blood Cells # Platelet Estimate NORMAL Polychromasia 1+ Poikilocytosis 2+ Anisocytosis 1+ Macrocytosis 1+ Prothrombin Time 16.0 H Prothrombin Time 1.3 Ratio INR International 1.27 Normalized Ratio Activated 46.[address] Time Sodium Level 138 Potassium Level 3.8 Chloride Level 103 Carbon Dioxide 26 Level Anion Gap 9 Blood Urea 39 H Nitrogen Creatinine 3.36 H Est Glomerular Filtrat Rate mL/min Glucose Level 207 Calcium Level 8.7 Troponin I 0.027 Urine Color YELLOW Urine Clarity TURBID A Urine pH 5.0 Urine Specific 1.021 [place] Urine Ketones NEGATIVE Urine Nitrite NEGATIVE Urine Bilirubin NEGATIVE Urine Urobilinogen NEGATIVE Urine Leukocyte 1+ H Esterase Urine Microscopic 27 H RBC Urine Microscopic > 182 H WBC Urine Squamous FEW Epithelial Cells Urine Bacteria MANY A Urine Hemoglobin 1+ H Urine Glucose NEGATIVE Urine Total 2+ H Protein Blood Gas Specimen Blood arterial Source Arterial Blood 10/05/2018 8:38:37 Date Drawn AM Arterial Blood pH 7.401 (Temp corrected) Arterial Blood 42.8 pCO2 (Temp correct) Arterial Blood pO2 246.8 H (Temp corrected) Arterial Blood 26.0 HCO3 Arterial Blood 1.0 Base Excess Arterial Blood 99.9 Oxygen Saturation Jacinto Test ACCEPTAB Arterial Blood Gas Left Radial Puncture Site Arterial 1.2 Blood Carboxyhemog lobin Arterial Blood 0.3 Methemoglobin Blood Gas A-a O2 423.4 H Differential Oxyhemoglobin 98.4 Percent Blood Gas 37.0 Temperature Blood Gas 14.0 Respiration Rate Blood Gas Actual 22 Respiration Rate Blood Gas Modality VENT - AC FiO2 100.0 Blood Gas Tidal 450.0 Volume Blood Gas Low PEEP 5.0 Setting Blood Gas Notified M.D. Whom Blood Gas Notified 10/05/2018 8:50:16 Time AM POC Venous Lactate 2.4 *H Test 10/05/18 11:07 Lactic Acid Level 2.4 *H Consultation Date/Type/Reason Admit Date/Time 10/05/18 Date of Consultation: Oct 05, 2018 Type of Consult Nephrology Reason for Consultation ESRD, HD Requesting Provider: YOEL DAVILA Hx of Present Illness 78-year-old female with a history of hypertension, ESRD on dialysis every TTS at [facility], last HD was this past Tuesday and Tuesday last week due to holiday schedule, who presented in from detention facility for hypoxia and altered mental state. She was found to be hypoxic with an O2 sat in the 80s requiring BiPAP however had cardiac arrest with CPR for approximately 5 minutes with ROSC, and she was subsequently intubated. Pt is due for HD today. Nephrology consulted for Management of ESRD. Subjective hx not possible: pt critical status Constitutional: requiring O2 Additional Comments Unable to obtain, Intubated Past Medical History Medical History: congestive heart failure, coronary artery disease, diabetes, hypertension, renal disease (ESRD) Medications Current Medications Norepinephrine 250 ml @ 7.5 mls/hr ONCE STAT IV Last administered on 10/05/18at 07:56; Admin Dose 9.375 MLS/HR; Start 10/05/18 at 06:50; Stop 10/06/18 at 16:09 Propofol 100 ml @ 1.8 mls/hr ONCE STAT IV Last administered on 10/05/18at 08:04; Admin Dose 1.8 MLS/HR; Start 10/05/18 at 07:30; Stop 10/07/18 at 15:03 Sodium Chloride 1,000 ml @ 50 mls/hr Q20H IV Last administered on 10/05/18at 10:44; Admin Dose 50 MLS/HR; Start 10/05/18 at 08:53 Ondansetron HCl (Zofran Inj) 4 mg Q6H PRN IV NAUSEA AND/OR VOMITING; Start 10/05/18 at 09:00 Acetaminophen (Tylenol Liquid) 650 mg Q6H PRN PO PAIN LEVEL 1-3 OR FEVER; Start 10/05/18 at 09:00 Docusate Sodium (Colace) 100 mg Q12H PRN PO CONSTIPATION; Start 10/05/18 at 09:00 Pantoprazole (Protonix Iv) 40 mg DAILY@06 IV ; Start 10/06/18 at 06:00 Heparin Sodium (Porcine) (Heparin (5000 Units/1ml)) 5,000 unit Q12 SC ; Start 10/05/18 at 10:00; Status UNV Aspirin (Aspirin) 81 mg DAILY PO ; Start 10/06/18 at 09:00 Atorvastatin Calcium (Lipitor) 80 mg QHS PO ; Start 10/05/18 at 21:00 Cholecalciferol (Vitamin D) 2,000 unit DAILY PO ; Start 10/06/18 at 09:00 Clopidogrel Bisulfate (plaVIX) 75 mg DAILY PO ; Start 10/06/18 at 09:00 Ferrous Sulfate (Ferrous Sulfate (Ec)) 325 mg BID PO ; Start 10/05/18 at 21:00 Folic Acid (Folic Acid) 1 mg DAILY PO ; Start 10/06/18 at 09:00 Levothyroxine Sodium (Synthroid) 50 mcg BEFORE BREAKFAST PO ; Start 10/06/18 at 07:00 Multivit/Ca Carb/ B Cmplx/FA/Prenat (Lizzy-Juanpablo) 1 tab DAILY PO ; Start 10/06/18 at 09:00 Polyethylene Glycol (Miralax) 17 gm DAILY PO ; Start 10/06/18 at 09:00 Vitamin B Complex/ Vitamin C (Berocca) 1 cap DAILY PO ; Start 10/06/18 at 09:00 Zinc Sulfate (Zinc Sulfate) 220 mg DAILY PO ; Start 10/06/18 at 09:00 Calcium/Vitamin D (Oyster Shell/ Vit-D (500/200)) 1 tab QHS PO ; Start 10/05/18 at 21:00 Eye Lubricant (Artificial Tears Oph) 1 drop TID BOTH EYES ; Start 10/05/18 at 14:00 Linezolid 300 ml @ 300 mls/hr Q12 IVPB Last administered on 10/05/18at 12:41; A dmin Dose 300 MLS/HR; Start 10/05/18 at 12:30 Meropenem/Sodium Chloride 50 ml @ 100 mls/hr Q12 IVPB ; Start 10/05/18 at 11:00; Status UNV Miscellaneous Information (Pending [facility] Order For Wound Care) This patient sams... PRN PRN XX SLOUGH/SOILED; Start 10/05/18 at 13:00; Status UNV Allergies: Coded Allergies: codeine (Verified Allergy, Mild, ANXIETY, 10/05/18) milk (Verified Allergy, Mild, GAS, 10/05/18) albuterol (Unverified Allergy, Unknown, 10/05/18) amlodipine (Unverified Allergy, Unknown, 10/05/18) clonidine (Unverified Allergy, Unknown, 10/05/18) diazepam (Unverified Allergy, Unknown, 10/05/18) diphenhydramine (Unverified Allergy, Unknown, 10/05/18) melatonin (Unverified Allergy, Unknown, 10/05/18) Uncoded Allergies: HEPARIN SODIUM (Allergy, Unknown, 09/08/18) NIFEDIPINE ER (Allergy, Unknown, 09/08/18) Past Surgical History RT Chest PC Past Surgical Hx: other Family History Significant Family History: no pertinent family hx Social History Alcohol Use: none Smoking Status: Never smoker Drug Use: none Exam/Review of Systems Vital Signs Vitals Vital Signs Date Temp Pulse Resp B/P (MAP) Pulse Ox O2 O2 Flow FiO2 Time Delivery Rate 10/05/18 86 12:00 10/05/18 40 11:00 10/05/18 25 98/44 (62) 100 Mechanical 09:15 Ventilator 10/05/18 99.1 08:08 Exam Constitutional: other (Intubated and sedated, Daughter at bedside. ) ENMT: mucosa pink and moist, intubated Neck: No jvd Respiratory: crackles/rales; No diminished breath sounds, No labored breathing Cardiovascular: No regular rate and rhythm Gastrointestinal: soft; No distended, No rebound or guarding Neurological: unresponsive (sedated) Skin: No diaphoresis Medications Medications Current Medications Norepinephrine 250 ml @ 7.5 mls/hr ONCE STAT IV Last administered on 10/05/18at 07:56; Admin Dose 9.375 MLS/HR; Start 10/05/18 at 06:50; Stop 10/06/18 at 16:09 Propofol 100 ml @ 1.8 mls/hr ONCE STAT IV Last administered on 10/05/18at 08: 04; Admin Dose 1.8 MLS/HR; Start 10/05/18 at 07:30; Stop 10/07/18 at 15:03 Sodium Chloride 1,000 ml @ 50 mls/hr Q20H IV Last administered on 10/05/18at 10:44; Admin Dose 50 MLS/HR; Start 10/05/18 at 08:53 Ondansetron HCl (Zofran Inj) 4 mg Q6H PRN IV NAUSEA AND/OR VOMITING; Start 10/05/18 at 09:00 Acetaminophen (Tylenol Liquid) 650 mg Q6H PRN PO PAIN LEVEL 1-3 OR FEVER; Start 10/05/18 at 09:00 Docusate Sodium (Colace) 100 mg Q12H PRN PO CONSTIPATION; Start 10/05/18 at 09:00 Pantoprazole (Protonix Iv) 40 mg DAILY@06 IV ; Start 10/06/18 at 06:00 Heparin Sodium (Porcine) (Heparin (5000 Units/1ml)) 5,000 unit Q12 SC ; Start 10/05/18 at 10:00; Status UNV Aspirin (Aspirin) 81 mg DAILY PO ; Start 10/06/18 at 09:00 Atorvastatin Calcium (Lipitor) 80 mg QHS PO ; Start 10/05/18 at 21:00 Cholecalciferol (Vitamin D) 2,000 unit DAILY PO ; Start 10/06/18 at 09:00 Clopidogrel Bisulfate (plaVIX) 75 mg DAILY PO ; Start 10/06/18 at 09:00 Ferrous Sulfate (Ferrous Sulfate (Ec)) 325 mg BID PO ; Start 10/05/18 at 21:00 Folic Acid (Folic Acid) 1 mg DAILY PO ; Start 10/06/18 at 09:00 Levothyroxine Sodium (Synthroid) 50 mcg BEFORE BREAKFAST PO ; Start 10/06/18 at 07:00 Multivit/Ca Carb/ B Cmplx/FA/Prenat (Lizzy-Juanpablo) 1 tab DAILY PO ; Start 10/06/18 at 09:00 Polyethylene Glycol (Miralax) 17 gm DAILY PO ; Start 10/06/18 at 09:00 Vitamin B Complex/ Vitamin C (Berocca) 1 cap DAILY PO ; Start 10/06/18 at 09:00 Zinc Sulfate (Zinc Sulfate) 220 mg DAILY PO ; Start 10/06/18 at 09:00 Calcium/Vitamin D (Oyster Shell/ Vit-D (500/200)) 1 tab QHS PO ; Start 10/05/18 at 21:00 Eye Lubricant (Artificial Tears Oph) 1 drop TID BOTH EYES ; Start 10/05/18 at 14:00 Linezolid 300 ml @ 300 mls/hr Q12 IVPB Last administered on 10/05/18at 12:41; Admin Dose 300 MLS/HR; Start 10/05/18 at 12:30 Meropenem/Sodium Chloride 50 ml @ 100 mls/hr Q12 IVPB ; Start 10/05/18 at 11:00; Status UNV Miscellaneous Information (Pending [facility] Order For Wound Care) This patient sams... PRN PRN XX SLOUGH/SOILED; Start 10/05/18 at 13:00; Status UNV Imaging Imaging PROCEDURE: XR Chest. CLINICAL INDICATION: Check endotracheal tube and line position. TECHNIQUE: Single frontal view. COMPARISON: September 12, 2018. FINDINGS: The endotracheal tube has been inserted in satisfactory position with the tip 4.5 cm above the wang. The left internal jugular vein catheter tip is in satisfactory position at the level of the cavoatrial junction. There is a right internal jugular vein tunneled dialysis catheter with the tip in the cavoatrial junction. Previously noted left internal jugular vein dialysis catheter has been removed. There is interstitial disease bilaterally consistent with pulmonary edema, impr reno. The heart size is normal. There is calcification in the aorta consistent with atherosclerosis. Small bilateral pleural effusions are improved. There is no pneumothorax. IMPRESSION: 1. Improved appearance of the lungs and smaller bilateral pleural effusions. 2. Endotracheal tube, left internal jugular vein catheter, and tunneled dialysis catheter in satisfactory position. 3. Otherwise unremarkable chest radiograph. RPTAT: QQ .Leonard Victoria MD, MD Date Time Electronically viewed and signed by .Leonard Victoria MD, MD on 10/05/2018 07:45 KATHIA SULLIVAN MD Oct 05, 2018 13:22
[2018-10-05] MEDS ORDERED: morphine SULFATE/PF (2 MG/2 ML) SYG IV PRN (15:00)
[2018-10-05] MEDS ORDERED: ALTEPLASE (CATHFLO) 2 MG INJ CATHETER ONE (15:30)
[2018-10-05] MEDS ORDERED: COLLAGENASE 5 GM (UD JAR) TOP PRN (15:39)
[2018-10-05] MEDS: MEROPENEM 500MG/50 ML (PMX) 50 ML IVPB SCH ×2 (15:41→23:15)
[2018-10-05] MEDS: COLLAGENASE 5 GM (UD JAR) TOP SCH ×2 (15:41→20:18)
[2018-10-05] MEDS: ARTIFICIAL TEARS 15 ML OPH BOTH EYES SCH ×2 (15:41→22:19)
[2018-10-05] MEDS ORDERED: DEXTROSE 50% 50 ML SYRINGE IV PRN ×2 (18:30)
[2018-10-05] MEDS ORDERED: INSULIN HUMAN REGULAR 100 UNIT in SOD CHLORIDE 0.9% 99 ML IV SCH (19:00)
[2018-10-05] MEDS: ACCU-CHEK XX SCH ×6 (20:00→23:58)
[2018-10-05] MEDS: ATORVASTATIN 80 MG TAB PO SCH (20:09)
[2018-10-05] MEDS: FERROUS SULFATE (EC) 325 MG TAB PO SCH (20:09)
--- NOTE | 2018-10-05 20:18 | CONS ---
DATE OF ADMISSION: 10/05/2018 DATE OF CONSULTATION: 10/05/2018 REASON FOR CONSULTATION: Antibiotic management. HISTORY OF PRESENT ILLNESS: Radha Coffman is a 78-year-old female who comes in, brought in by ambulance for respiratory distress from senior living facility. Her past problems include: 1. Hypertension. 2. End-stage renal disease on hemodialysis. 3. Diabetes. 4. Status post hip surgery. 5. Eye surgery. 6. Left toe amputations. 7. Right knee surgery. Acutely, the patient comes in with hypoxemia and altered mental status. She was brought in from [facility] with her oxygen saturation in the 80s. She was initially tried on BiPAP pending preparation for intubation. She lost her pulse. CPR was initiated for approximately 5 minutes. Sh amanda was intubated and subsequently returned of systemic circulation was achieved. The patient was then placed in the ICU. PAST MEDICAL HISTORY: As outlined. FAMILY HISTORY: Noncontributory. SOCIAL HISTORY: She does not smoke, drink or abuse drugs. She lives in a senior living facility. ALLERGIES: 1. CODEINE. 2. MILK 3. ALBUTEROL. 4. AMLODIPINE. 5. CLONIDINE. 6. DIAZEPAM. 7. DIPHENHYDRAMINE. 8. MELATONIN. 9. HEPARIN. 10. NIFEDIPINE. MEDICATIONS: Per chart. REVIEW OF SYSTEMS: As outlined. PHYSICAL EXAMINATION: GENERAL: The patient is an ill-appearing female who is obtunded on a respirator. VITAL SIGNS: T-max 99.1, blood pressure is 80/40. SKIN: Warm to the touch. HEENT: Within normal limits. NECK: Supple. LYMPH NODES: None palpable. CHEST: Decreased breath sounds at the bases. HEART: Without murmur or gallop. ABDOMEN: Soft, nontender, without organosplenomegaly or masses. EXTREMITIES: Without cyanosis, clubbing, or edema. RECTAL AND GENITAL: Deferred. NEUROLOGIC: The patient was minimally responsive. ANCILLARY LABORATORY DATA: White count 27.9, H and H of 8.2 and 28.5, platelet count 317,000. BUN a nd creatinine 39/3.36, glucose random was 207. White count as noted was 27.9. She was placed on van comycin, cefepime, norepinephrine, propofol. Her urinalysis showed 1+ leukocytosis greater than 182 white cells per high powered field. Her chest x-ray showed improved appearance of the lungs with sma ll bilateral pleural effusions. An endotracheal tube was in place left internal jugular vein cathete r and tunneled dialysis catheter in satisfactory position, so she has a left internal jugular cathete r and a right internal jugular vein tunneled dialysis catheter. Previously noted left internal jugul ar vein dialysis catheter was removed. IMPRESSION AND PLAN: The patient is in septic shock with acute respiratory failure, probably seconda ry to urinary tract infection with sepsis and shock. The patient is currently on vancomycin that was switched to linezolid and meropenem since she had VRE in the wound on her last admission. I concur with the current regimen. I will dictate my findings to the hospitalist. I want to thank Dr. Pierre. I want to thank the hospitalist for asking me to see this hebert lady in consultation. As note, th e patient may also have bilateral lower lobe pneumonia, possibly related to aspiration pneumonia, so we are treating UTI and bilateral lower lobe pneumonia. She is being supported with Levophed. She a lso has advanced dementia. She is status post 5 minutes CPR, multiple sacral ulcers, chronic renal f ailure. I will dictate my findings to the hospitalist and Dr. Pierre. Dictated By: KIMO QUINN MD, JD/SKIP Conf#: [id number] DID#: [id number] CC: YOEL DAVILA MD;*EndCC*
[2018-10-05] MEDS ORDERED: NON-FORMULARY/PATIENT OWN MED (Amino Acids/Protein Hydrolys (Pro-Stat Liquid) 30 ML) PO SCH (21:00)
[2018-10-05] MEDS ORDERED: CALCIUM/VITAMIN D (500/200) TAB PO SCH (21:00)
[2018-10-05] MEDS: NORepinephrine 8MG/250 ML (PMX 250 ML IV SCH (23:14)
[2018-10-06] VITALS (106 sets, daily range): BP systolic 70–192; BP diastolic 31–58; PULSE 69–95; RESP 3–32
[2018-10-06] MEDS: ACCU-CHEK XX SCH ×15 (01:18→14:56)
[2018-10-06] MEDS ORDERED: PANTOPRAZOLE 40 MG INJ IV SCH (06:00)
[2018-10-06] MEDS: SOD CHLORIDE 0.9% 1,000 ML IV SCH (06:39)
[2018-10-06] MEDS: LEVOTHYROXINE 50 MCG TAB PO SCH (07:00)
--- NOTE | 2018-10-06 08:35 | CONS ---
Date/Time of Note Date/Time of Note DATE: 10/06/18 TIME: 08:32 Assessment/Plan Assessment/Plan Assessment/Plan Ventilator setting; AC of 16, tidal volume 450, PEEP of 5, 30% FiO2. Chest x-ray from today showing improvement in right-sided pneumonia. Patient is currently on propofol 7 mics per kilogram per minute, Levophed 6 mics per minute, insulin drip 0.5 units/h. Assessment and recommendations; 1. Patient with a history of advanced dementia admitted for sepsis due to extensive pneumonia involving right lung. Requiring pressor support. Infection also could possibly from catheter. 2. Anemia. 3. Chronic renal failure, on hemodialysis. 4. Sacral ulcer. Possibly another source of infection. 5. History of hypothyroidism. 6. Hypotension with interval improvement. Continue current supportive care. Patient's family has signed a DNR order. Which is appropriate considering patient's overall condition. Prognosis is guarded. Will obtain follow-up chest x-ray 24 hours. If the patient continues to improve he will given a sedation vacation to assess for possible weaning from ventilator. 35 minutes of critical care time was spent evaluating the patient. Result Diagram: 10/06/18 0442 10/06/18 0442 Results 24hrs Laboratory Tests Test 10/05/18 09:12 10/05/18 11:07 10/05/18 15:13 10/05/18 17:58 POC Venous Lactate 2.4 *H Lactic Acid Level 2.4 *H Creatine Kinase 21 L Creatine Kinase Index 7.7 Creatinine Kinase MB 1.62 (Mass) Troponin I 0.087 Bedside Glucose 290 H Test 10/05/18 19:49 10/05/18 21:07 10/05/18 22:04 10/05/18 23:02 Bedside Glucose 232 H 184 132 167 Test 10/05/18 23:58 10/06/18 01:17 10/06/18 02:23 10/06/18 03:16 Bedside Glucose 149 96 102 101 Test 10/06/18 04:42 10/06/18 05:14 10/06/18 06:32 White Blood Count 26.9 H Red Blood Count 2.70 L Hemoglobin 7.7 L Hematocrit 26.5 L Mean Corpuscular Volume 98.1 Mean Corpuscular 28.5 L Hemoglobin Mean Corpuscular 29.1 L Hemoglobin Concent Red Cell Distribution 23.2 H Width Platelet Count 294 Mean Platelet Volume 10.0 Immature Granulocytes % 1.300 H Neutrophils % Segmented Neutrophils 49 % (Manual) Band Neutrophils % 39 H (Manual) Lymphocytes % Lymphocytes % (Manual) 9 L Monocytes % Monocytes % (Manual) 1 Eosinophils % Eosinophils % (Manual) 1 Basophils % Promyelocytes % (Manual) 1 H Nucleated Red Blood 1 H Cells % Immature Granulocytes # 0.340 H Neutrophils # Neutrophils # (Manual) 16.0 H Band Neutrophils # 10.4 H Lymphocytes (Manual) 2.4 Lymphocytes # Monocytes # Monocytes # (Manual) 0.2 L Eosinophils # Basophils # Promyelocytes # 0.2 H Nucleated Red Blood Cells # Platelet Estimate NORMAL Polychromasia 1+ Poikilocytosis 3+ Anisocytosis 3+ Macrocytosis 3+ Target Cells 1+ Ovalocytes 1+ Sodium Level 137 Potassium Level 4.3 Chloride Level 101 Carbon Dioxide Level 28 Anion Gap 8 Blood Urea Nitrogen 23 #H Creatinine 1.93 #H Est Glomerular Filtrat Rate mL/min Glucose Level 108 # Calcium Level 7.7 L Phosphorus Level 1.8 L Magnesium Level 2.0 Thyroid Stimulating 1.780 Hormone (TSH) Bedside Glucose 127 114 Consultation Date/Type/Reason Admit Date/Time Oct 05, 2018 at 07:51 Initial Consult Date 10/05/18 Type of Consult Pulmonary/critical care History of presenting illness; patient is a 78-year-old woman who was transferred to ER from custodial with hypotension. Upon further evaluation patient is been diagnosed with bilateral pneumonia as well as UTI with sepsis. Patient has been adequately fluid resuscitated but still requiring Levophed for hypotension. Patient has history of chronic encephalopathy and is currently under sedation. Past medical history; 1. History of dementia and chronic encephalopathy. 2. History of diabetes and hypothyroidism. Medications; reviewed. Patient is currently on Levophed at 11 mics per minute. Propofol at 10 mics per kilogram per minute. Allergies; as outlined above. Social history; not available. Family history; not available. Occupational history; not available. Review of system; unable to be obtained. General exam; elderly woman, orally intubated, sedated, currently in no distress. Requesting Provider: YOEL DAVILA 24 HR Interval Summary Free Text/Dictation Patient's condition remains critical. Remains hypotensive and still requiring pressor support although still overdosing. Currently getting hemodialysis at bedside. General exam; elderly female, orally intubated, sedated, currently no distress. Exam/Review of Systems Vital Signs Vitals Vital Signs Date Temp Pulse Resp B/P (MAP) Pulse Ox O2 O2 Flow FiO2 Time Delivery Rate 10/06/18 94 17 98 07:45 10/06/18 77/37 (50) 07:30 10/06/18 Mechanical 07:00 Ventilator 10/06/18 30 04:50 10/06/18 99.5 04:00 Intake and Output 10/05/18 10/05/18 10/06/18 1515:00 23:00 07:00 IntakeIntake Total 693.95 ml 861.52 ml 518.52 ml OutputOutput Total 1770 ml 525 ml 167 ml BalanceBalance -1076.05 ml 336.52 ml 351.52 ml Exam H EENT exam; supple neck, no lymphadenopathy. No JVD. No neck masses. Patient has fair dentition. Orally intubated. Pupils are small bilaterally. Chest exam; diminished but clear breath sounds. S1-S2 audible, no murmurs. Regular rhythm. Abdomen exam; soft, no organomegaly. Bowel sounds audible. Nondistended. Extremity exam; no peripheral edema. Back examination; dressing applied over sacral ulcer. [employer] exam; patient is sedated. Medications Medications Current Medications Propofol 100 ml @ 1.8 mls/hr ONCE STAT IV Last administered on 10/05/18at 08:04; Admin Dose 1.8 MLS/HR; Start 10/05/18 at 07:30; Stop 10/07/18 at 15:03 Sodium Chloride 1,000 ml @ 50 mls/hr Q20H IV Last administered on 10/06/18at 06:39; Admin Dose 50 MLS/HR; Start 10/05/18 at 08:53 Ondansetron HCl (Zofran Inj) 4 mg Q6H PRN IV NAUSEA AND/OR VOMITING; Start 10/05/18 at 09:00 Acetaminophen (Tylenol Liquid) 650 mg Q6H PRN PO PAIN LEVEL 1-3 OR FEVER; Start 10/05/18 at 09:00 Docusate Sodium (Colace) 100 mg Q12H PRN PO CONSTIPATION; Start 10/05/18 at 09:00 Pantoprazole (Protonix Iv) 40 mg DAILY@06 IV Last administered on 10/06/18at 05:15; Admin Dose 40 MG; Start 10/06/18 at 06:00 Aspirin (Aspirin) 81 mg DAILY PO ; Start 10/06/18 at 09:00 Atorvastatin Calcium (Lipitor) 80 mg QHS PO Last administered on 10/05/18at 20:09; Admin Dose 80 MG; Start 10/05/18 at 21:00 Cholecalciferol (Vitamin D) 2,000 unit DAILY PO ; Start 10/06/18 at 09:00 Clopidogrel Bisulfate (plaVIX) 75 mg DAILY PO ; Start 10/06/18 at 09:00 Ferrous Sulfate (Ferrous Sulfate (Ec)) 325 mg BID PO Last administered on 10/05/18at 20:09; Admin Dose 325 MG; Start 10/05/18 at 21:00 Folic Acid (Folic Acid) 1 mg DAILY PO ; Start 10/06/18 at 09:00 Levothyroxine Sodium (Synthroid) 50 mcg BEFORE BREAKFAST PO Last administered on 10/06/18at 07:00; Admin Dose 50 MCG; Start 10/06/18 at 07:00 Multivit/Ca Carb/ B Cmplx/FA/Prenat (Lizzy-Juanpablo) 1 tab DAILY PO ; Start 10/06/18 at 09:00 Polyethylene Glycol (Miralax) 17 gm DAILY PO ; Start 10/06/18 at 09:00 Vitamin B Complex/ Vitamin C (Berocca) 1 cap DAILY PO ; Start 10/06/18 at 09:00 Zinc Sulfate (Zinc Sulfate) 220 mg DAILY PO ; Start 10/06/18 at 09:00 Calcium/Vitamin D (Oyster Shell/ Vit-D (500/200)) 1 tab QHS PO Last administered on 10/05/18at 20:09; Admin Dose 1 TAB; Start 10/05/18 at 21:00 Eye Lubricant (Artificial Tears Oph) 1 drop TID BOTH EYES Last administered on 10/05/18at 22:19; Admin Dose 1 DROP; Start 10/05/18 at 14:00 Linezolid 300 ml @ 300 mls/hr Q12 IVPB Last administered on 10/05/18at 22:08; Admin Dose 300 MLS/HR; Start 10/05/18 at 12:30 Meropenem/Sodium Chloride 50 ml @ 100 mls/hr Q12 IVPB Last administered on 10/05/18at 23:15; Admin Dose 100 MLS/HR; Start 10/05/18 at 15:00 Miscellaneous Information (Pending Santyl Order For Wound Care) This patient sams... PRN PRN XX SLOUGH/SOILED; Start 10/05/18 at 13:00 Collagenase (Santyl) 1 applic Q12 TOP Last administered on 10/05/18at 20:18; Admin Dose 1 APPLIC; Start 10/05/18 at 14:00 Morphine Sulfate (morphine SULFATE (PF)) 2 mg Q4H PRN IV SEVERE PAIN LEVEL 7-10 Last administered on 10/05/18at 16:44; Admin Dose 2 MG; Start 10/05/18 at 15:00 Collagenase (Santyl) 1 applic PRN PRN TOP PRN; Start 10/05/18 at 15:39 Diagnostic Test (Pha) (Accu-Chek) 1 ea Q1H XX Last administered on 10/06/18 06:34; Admin Dose 1 EA; Start 10/05/18 at 19:00 Insulin Human Regular 100 unit/ Sodium Chloride 100 ml @ 0 mls/hr PER PROTOCOL IV Last administered on 10/05/18 20:17; Admin Dose 2 MLS/HR; Start 10/05/18 at 19:00 Miscellaneous Information (* Miscellaneous Pharmacy Order) Treatment of Hypoglycemia: 1.BG 51... Per protocol XX ; Start 10/05/18 at 18:30 Dextrose (D50w Syringe) 25 ml Q15M PRN IV DECREASED GLUCOSE; Start 10/05/18 at 18:30 Dextrose (D50w Syringe) 50 ml Q15M PRN IV DECREASED GLUCOSE; Start 10/05/18 at 18:30 Norepinephrine 250 ml @ 1.875 mls/ hr TITRATE IV Last administered on 10/05/18at 23:14; Admin Dose 7.5 MLS/HR; Start 10/05/18 at 23:00 VLAD MARTIN Oct 06, 2018 08:35
[2018-10-06] MEDS: LINEZOLID 600 MG/D5W (PMX) 300 ML IVPB SCH ×3 (09:20→21:36)
[2018-10-06] MEDS: VITAMIN B COMPLEX/VIT C CAP PO SCH (09:20)
[2018-10-06] MEDS: FERROUS SULFATE (EC) 325 MG TAB PO SCH ×2 (09:20→20:55)
[2018-10-06] MEDS: ARTIFICIAL TEARS 15 ML OPH BOTH EYES SCH ×3 (09:20→20:54)
[2018-10-06] MEDS: ZINC SULFATE 220 MG CAP PO SCH (09:20)
[2018-10-06] MEDS: CHOLECALCIFEROL 1,000 UNIT TAB PO SCH (09:21)
[2018-10-06] MEDS: MULTIVIT/CA CARB/B CMPLX/FA TAB PO SCH (09:21)
[2018-10-06] MEDS: CLOPIDOGREL 75 MG TAB PO SCH (09:21)
[2018-10-06] MEDS: FOLIC ACID 1 MG TAB PO SCH (09:21)
[2018-10-06] MEDS: ASPIRIN 81 MG TAB PO SCH (09:21)
[2018-10-06] MEDS: POLYETHYLENE GLYCOL 17 GM PACKET PO SCH (09:24)
--- NOTE | 2018-10-06 10:23 | CONS ---
Date/Time of Note Date/Time of Note DATE: 10/06/18 TIME: 10:20 Assessment/Plan Assessment/Plan Assessment/Plan 78 yo Female with 1) Hypoxia with Respiratory Failure 2) Severe Sepsis 3) S/p Cardiac Arrest with ROSC 4) ESRD on HD 5) Anemia, Chronic CKD 6) Hypophosphatemia S/p HD No fluid removal due to Shock state and elevated Lactate Repeat Lactic Acid level Replace Phos IV and through OGT Repeat labs in am. Cont supportive Care, HD catheter Care. No Heparin Levophed PRN for BP support, Keep MAPs>60mmHg. Pt code status DNR, Cont HD treatment. Thank you for the opportunity to participate in the care of Ms Coffman Discussed with Family at bedside and ICU RNs. CC time spent >30 min. Result Diagram: 10/06/182 10/06/18 0442 Results 24hrs Laboratory Tests Test 10/05/18 11:07 10/05/18 15:13 10/05/18 17:58 10/05/18 19:49 Lactic Acid Level 2.4 *H Creatine Kinase 21 L Creatine Kinase Index 7.7 Creatinine Kinase MB 1.62 (Mass) Troponin I 0.087 Bedside Glucose 290 H 232 H Test 10/05/18 21:07 10/05/18 22:04 10/05/18 23:02 10/05/18 23:58 Bedside Glucose 184 132 167 149 Test 10/06/18 01:17 10/06/18 02:23 10/06/18 03:16 10/06/18 04:42 Bedside Glucose 96 102 101 White Blood Count 26.9 H Red Blood Count 2.70 L Hemoglobin 7.7 L Hematocrit 26.5 L Mean Corpuscular Volume 98.1 Mean Corpuscular 28.5 L Hemoglobin Mean Corpuscular 29.1 L Hemoglobin Concent Red Cell Distribution 23.2 H Width Platelet Count 294 Mean Platelet Volume 10.0 Immature Granulocytes % 1.300 H Neutrophils % Segmented Neutrophils 49 % (Manual) Band Neutrophils % 39 H (Manual) Lymphocytes % Lymphocytes % (Manual) 9 L Monocytes % Monocytes % (Manual) 1 Eosinophils % Eosinophils % (Manual) 1 Basophils % Promyelocytes % (Manual) 1 H Nucleated Red Blood 1 H Cells % Immature Granulocytes # 0.340 H Neutrophils # Neutrophils # (Manual) 16.0 H Band Neutrophils # 10.4 H Lymphocytes (Manual) 2.4 Lymphocytes # Monocytes # Monocytes # (Manual) 0.2 L Eosinophils # Basophils # Promyelocytes # 0.2 H Nucleated Red Blood Cells # Platelet Estimate NORMAL Polychromasia 1+ Poikilocytosis 3+ Anisocytosis 3+ Macrocytosis 3+ Target Cells 1+ Ovalocytes 1+ Sodium Level 137 Potassium Level 4.3 Chloride Level 101 Carbon Dioxide Level 28 Anion Gap 8 Blood Urea Nitrogen 23 #H Creatinine 1.93 #H Est Glomerular Filtrat Rate mL/min Glucose Level 108 # Calcium Level 7.7 L Phosphorus Level 1.8 L Magnesium Level 2.0 Thyroid Stimulating 1.780 Hormone (TSH) Test 10/06/18 05:14 10/06/18 06:32 10/06/18 08:45 Bedside Glucose 127 114 85 Consultation Date/Type/Reason Admit Date/Time Oct 05, 2018 at 07:51 Initial Consult Date 10/05/18 Type of Consult Nephrology Requesting Provider: YOEL DAVILA 24 HR Interval Summary Free Text/Dictation S/p HD yesterday night Pt still on Levophed Remains intubated Subjective hx not possible: pt critical status Constitutional: requiring O2 Exam/Review of Systems Vital Signs Vitals Vital Signs Date Temp Pulse Resp B/P (MAP) Pulse Ox O2 O2 Flow FiO2 Time Delivery Rate 10/06/18 92 28 106/41 99 08:30 (62) 10/06/18 98.5 Mechanical 08:00 Ventilator 10/06/18 30 04:50 Intake and Output 10/05/18 10/05/18 10/06/18 1515:00 23:00 07:00 IntakeIntake Total 693.95 ml 861.52 ml 582.29 ml OutputOutput Total 1770 ml 525 ml 167 ml BalanceBalance -1076.05 ml 336.52 ml 415.29 ml Exam Constitutional: frail Eyes: EOMI ENMT: intubated Neck: No jvd Respiratory: crackles/rales; No diminished breath sounds, No labored breathing Cardiovascular: regular rate and rhythm, edema Gastrointestinal: soft; No distended, No rebound or guarding Extremities: edema Neurological: other (sedatd) Skin: No diaphoresis Medications Medications Current Medications Propofol 100 ml @ 1.8 mls/hr ONCE STAT IV Last administered on 10/05/18at 08:04; Admin Dose 1.8 MLS/HR; Start 10/05/18 at 07:30; Stop 10/07/18 at 15:03 Sodium Chloride 1,000 ml @ 50 mls/hr Q20H IV Last administered on 10/06/18 06: 39; Admin Dose 50 MLS/HR; Start 10/05/18 at 08:53 Ondansetron HCl (Zofran Inj) 4 mg Q6H PRN IV NAUSEA AND/OR VOMITING; Start 10/05/18 at 09:00 Acetaminophen (Tylenol Liquid) 650 mg Q6H PRN PO PAIN LEVEL 1-3 OR FEVER; Start 10/05/18 at 09:00 Docusate Sodium (Colace) 100 mg Q12H PRN PO CONSTIPATION; Start 10/05/18 at 09:00 Pantoprazole (Protonix Iv) 40 mg DAILY@06 IV Last administered on 10/06/18 05 :15; Admin Dose 40 MG; Start 10/06/18 at 06:00 Aspirin (Aspirin) 81 mg DAILY PO Last administered on 10/06/18 09:21; Admin Dose 81 MG; Start 10/06/18 at 09:00 Atorvastatin Calcium (Lipitor) 80 mg QHS PO Last administered on 10/05/18 20:09; Admin Dose 80 MG; Start 10/05/18 at 21:00 Cholecalciferol (Vitamin D) 2,000 unit DAILY PO Last administered on 10/06/18 09:21; Admin Dose 2,000 UNIT; Start 10/06/18 at 09:00 Clopidogrel Bisulfate (plaVIX) 75 mg DAILY PO Last administered on 10/06/18 09:21; Admin Dose 75 MG; Start 10/06/18 at 09:00 Ferrous Sulfate (Ferrous Sulfate (Ec)) 325 mg BID PO Last administered on 10/06/18 09:20; Admin Dose 325 MG; Start 10/05/18 at 21:00 Folic Acid (Folic Acid) 1 mg DAILY PO Last administered on 10/06/18 09:21; Admin Dose 1 MG; Start 10/06/18 at 09:00 Levothyroxine Sodium (Synthroid) 50 mcg BEFORE BREAKFAST PO Last administered on 10/06/18 07:00; Admin Dose 50 MCG; Start 10/06/18 at 07:00 Multivit/Ca Carb/ B Cmplx/FA/Prenat (Lizzy-Juanpablo) 1 tab DAILY PO Last adm inistered on 10/06/18 09:21; Admin Dose 1 TAB; Start 10/06/18 at 09:00 Polyethylene Glycol (Miralax) 17 gm DAILY PO Last administered on 10/06/18 09:24; Admin Dose 17 GM; Start 10/06/18 at 09:00 Vitamin B Complex/ Vitamin C (Berocca) 1 cap DAILY PO Last administered on 10/06/18 09:20; Admin Dose 1 CAP; Start 10/06/18 at 09:00 Zinc Sulfate (Zinc Sulfate) 220 mg DAILY PO Last administered on 10/06/18 09:20; Admin Dose 220 MG; Start 10/06/18 at 09:00 Calcium/Vitamin D (Oyster Shell/ Vit-D (500/200)) 1 tab QHS PO Last administered on 10/05/18 20:09; Admin Dose 1 TAB; Start 10/05/18 at 21:00 Eye Lubricant (Artificial Tears Oph) 1 drop TID BOTH EYES Last administered on 10/06/18 09:20; Admin Dose 1 DROP; Start 10/05/18 at 14:00 Linezolid 300 ml @ 300 mls/hr Q12 IVPB Last administered on 10/05/18 22:08; Admin Dose 300 MLS/HR; Start 10/05/18 at 12:30 Miscellaneous Information (Pending Santyl Order For Wound Care) This patient sams... PRN PRN XX SLOUGH/SOILED; Start 10/05/18 at 13:00 Collagenase (Santyl) 1 applic Q12 TOP Last administered on 10/05/18 20:18; Admin Dose 1 APPLIC; Start 10/05/18 at 14:00 Morphine Sulfate (morphine SULFATE (PF)) 2 mg Q4H PRN IV SEVERE PAIN LEVEL 7-10 Last administered on 10/05/18 16:44; Admin Dose 2 MG; Start 10/05/18 at 15:00 Collagenase (Santyl) 1 applic PRN PRN TOP PRN; Start 10/05/18 at 15:39 Diagnostic Test (Pha) (Accu-Chek) 1 ea Q1H XX Last administered on 10/06/18 09:36; Admin Dose 1 EA; Start 10/05/18 at 19:00 Insulin Human Regular 100 unit/ Sodium Chloride 100 ml @ 0 mls/hr PER PROTOCOL IV Last administered on 10/05/18at 20:17; Admin Dose 2 MLS/HR; Start 10/05/18 at 19:00 Miscellaneous Information (* Miscellaneous Pharmacy Order) Treatment of Hyp oglycemia: 1.BG 51... Per protocol XX ; Start 10/05/18 at 18:30 Dextrose (D50w Syringe) 25 ml Q15M PRN IV DECREASED GLUCOSE; Start 10/05/18 at 18:30 Dextrose (D50w Syringe) 50 ml Q15M PRN IV DECREASED GLUCOSE; Start 10/05/18 at 18:30 Norepinephrine 250 ml @ 1.875 mls/ hr TITRATE IV Last administered on 10/05/18at 23:14; Admin Dose 7.5 MLS/HR; Start 10/05/18 at 23:00 Meropenem/Sodium Chloride 50 ml @ 100 mls/hr Q24H IVPB ; Start 10/06/18 at 21:00 Sodium Phosphate (Neutra-Phos) 500 mg BID GTB ; Start 10/06/18 at 10:30; Status UNV Sodium Phosphate 15 mmol/Sodium Chloride 255 ml @ 63.75 mls/ hr ONCE ONCE IVPB ; Start 10/06/18 at 10:30; Stop 10/06/18 at 14:29; Status UNV KATHIA SULLIVAN MD Oct 06, 2018 10:23
[2018-10-06] MEDS ORDERED: morphine LIQ (10 MG/5 ML) CUP GTB PRN (11:00)
[2018-10-06] MEDS ORDERED: SODIUM PHOSPHATE 15 MMOL in SOD CHLORIDE 0.9% 250 ML IVPB ONE (11:30)
[2018-10-06] MEDS: NEUTRA-PHOS 250 MG PACKET GTB SCH ×2 (11:31→20:54)
[2018-10-06] MEDS: COLLAGENASE 5 GM (UD JAR) TOP SCH ×2 (11:33→20:54)
--- NOTE | 2018-10-06 12:50 | CONS ---
Date/Time of Note Date/Time of Note DATE: 10/06/18 TIME: 12:50 Assessment/Plan Assessment/Plan Hospital Course Patient is intubated, on Levophed drip, in no distress, family at bedside T-max 99.5 to current 98.5 pulse 86 respirations 16 blood pressure 112/44 saturation 99 on vent WBC 26.9 H&H 7.7 and 26.5 platelets 294 bands 39 Microbiology: Blood cultures growing gram-positive cocci in clusters. Urine culture growing Germania albicans. Sacral wound cultures on previous admission grew VRE and Proteus mirabilis Indwelling: Endotracheal tube NG tube Teixeira catheter, right IJ permacath, left IJ triple-lumen catheter. Chest x-ray revealed increased right greater than left basilar infiltrates concerning for multifocal pneumonia Antimicrobials: Meropenem, Zyvox Physical examination: This is a chronically ill-appearing wasted elderly woman who is intubated in no distress. Head atraumatic normocephalic. Neck is supple. Chest rise symmetrical, breath sounds diminished bases. Heart: S1-S2. Abdomen soft bowel sounds hypoactive. Extremities cyanotic mottled Assessment: 1. Severe sepsis with shock 2. Gram-positive cocci bacteremia, rule out line sepsis 3. Germania albicans UTI 4. Bilateral healthcare associated pneumonia, possibly aspirated 5. Unstageable sacral decub 6. End-stage renal disease, hemodialysis dependent 7. Diabetes 8. History of right patellar fracture complicated by MRSA infected hardware, removed in May [address] Hedrick Plan: Patient is hemodynamically unstable, on appropriate antibiotics, but will add antifungal coverage, await for final cultures, repeat blood cultures with next hemodialysis Result Diagram: 10/06/182 10/06/18 0442 Results 24hrs Laboratory Tests Test 10/05/18 15:13 10/05/18 17:58 10/05/18 19:49 10/05/18 21:07 Creatine Kinase 21 L Creatine Kinase Index 7.7 Creatinine Kinase MB 1.62 (Mass) Troponin I 0.087 Bedside Glucose 290 H 232 H 184 Test 10/05/18 22:04 10/05/18 23:02 10/05/18 23:58 10/06/18 01:17 Bedside Glucose 132 167 149 96 Test 10/06/18 02:23 10/06/18 03:16 10/06/18 04:42 10/06/18 05:14 Bedside Glucose 102 101 127 White Blood Count 26.9 H Red Blood Count 2.70 L Hemoglobin 7.7 L Hematocrit 26.5 L Mean Corpuscular Volume 98.1 Mean Corpuscular 28.5 L Hemoglobin Mean Corpuscular 29.1 L Hemoglobin Concent Red Cell Distribution 23.2 H Width Platelet Count 294 Mean Platelet Volume 10.0 Immature Granulocytes % 1.300 H Neutrophils % Segmented Neutrophils 49 % (Manual) Band Neutrophils % 39 H (Manual) Lymphocytes % Lymphocytes % (Manual) 9 L Monocytes % Monocytes % (Manual) 1 Eosinophils % Eosinophils % (Manual) 1 Basophils % Promyelocytes % (Manual) 1 H Nucleated Red Blood 1 H Cells % Immature Granulocytes # 0.340 H Neutrophils # Neutrophils # (Manual) 16.0 H Band Neutrophils # 10.4 H Lymphocytes (Manual) 2.4 Lymphocytes # Monocytes # Monocytes # (Manual) 0.2 L Eosinophils # Basophils # Promyelocytes # 0.2 H Nucleated Red Blood Cells # Platelet Estimate NORMAL Polychromasia 1+ Poikilocytosis 3+ Anisocytosis 3+ Macrocytosis 3+ Target Cells 1+ Ovalocytes 1+ Sodium Level 137 Potassium Level 4.3 Chloride Level 101 Carbon Dioxide Level 28 Anion Gap 8 Blood Urea Nitrogen 23 #H Creatinine 1.93 #H Est Glomerular Filtrat Rate mL/min Glucose Level 108 # Calcium Level 7.7 L Phosphorus Level 1.8 L Magnesium Level 2.0 Thyroid Stimulating 1.780 Hormone (TSH) Test 10/06/18 06:32 10/06/18 08:45 10/06/18 11:05 Bedside Glucose 114 85 80 Consultation Date/Type/Reason Admit Date/Time Oct 05, 2018 at 07:51 Initial Consult Date 10/05/18 Type of Consult id Requesting Provider: YOEL DAVILA Exam/Review of Systems Vital Signs Vitals Vital Signs Date Temp Pulse Resp B/P (MAP) Pulse Ox O2 O2 Flow FiO2 Time Delivery Rate 10/06/18 82 16 112/44 99 11:30 (66) 10/06/18 30 11:10 10/06/18 Mechanical 11:00 Ventilator 10/06/18 98.5 08:00 Intake and Output 10/05/18 10/05/18 10/06/18 1515:00 23:00 07:00 IntakeIntake Total 693.95 ml 861.52 ml 582.29 ml OutputOutput Total 1770 ml 525 ml 168 ml BalanceBalance -1076.05 ml 336.52 ml 414.29 ml Medications Medications Current Medications Propofol 100 ml @ 1.8 mls/hr ONCE STAT IV Last administered on 10/05/18 08:04; Admin Dose 1.8 MLS/HR; Start 10/05/18 at 07:30; Stop 10/07/18 at 15:03 Sodium Chloride 1,000 ml @ 50 mls/hr Q20H IV Last administered on 10/06/18 06:39; Admin Dose 50 MLS/HR; Start 10/05/18 at 08:53 Ondansetron HCl (Zofran Inj) 4 mg Q6H PRN IV NAUSEA AND/OR VOMITING; Start 10/05/18 at 09:00 Acetaminophen (Tylenol Liquid) 650 mg Q6H PRN PO PAIN LEVEL 1-3 OR FEVER; Start 10/05/18 at 09:00 Docusate Sodium (Colace) 100 mg Q12H PRN PO CONSTIPATION; Start 10/05/18 at 09:00 Aspirin (Aspirin) 81 mg DAILY PO Last administered on 10/06/18 09:21; Admin Dose 81 MG; Start 10/06/18 at 09:00 Atorvastatin Calcium (Lipitor) 80 mg QHS PO Last administered on 10/05/18 20:09; Admin Dose 80 MG; Start 10/05/18 at 21:00 Cholecalciferol (Vitamin D) 2,000 unit DAILY PO Last administered on 10/06/18 09:21; Admin Dose 2,000 UNIT; Start 10/06/18 at 09:00 Clopidogrel Bisulfate (plaVIX) 75 mg DAILY PO Last administered on 10/06/18 09:21; Admin Dose 75 MG; Start 10/06/18 at 09:00 Ferrous Sulfate (Ferrous Sulfate (Ec)) 325 mg BID PO Last administered on 10/06/18 09:20; Admin Dose 325 MG; Start 10/05/18 at 21:00 Folic Acid (Folic Acid) 1 mg DAILY PO Last administered on 10/06/18 09:21; Admin Dose 1 MG; Start 10/06/18 at 09:00 Levothyroxine Sodium (Synthroid) 50 mcg BEFORE BREAKFAST PO Last administered on 10/06/18 07:00; Admin Dose 50 MCG; Start 10/06/18 at 07:00 Multivit/Ca Carb/ B Cmplx/FA/Prenat (Lizzy-Juanpablo) 1 tab DAILY PO Last administered on 10/06/18 09:21; Admin Dose 1 TAB; Start 10/06/18 at 09:00 Polyethylene Glycol (Miralax) 17 gm DAILY PO Last administered on 10/06/18 09:24; Admin Dose 17 GM; Start 10/06/18 at 09:00 Vitamin B Complex/ Vitamin C (Berocca) 1 cap DAILY PO Last administered on 10/06/18 09:20; Admin Dose 1 CAP; Start 10/06/18 at 09:00 Zinc Sulfate (Zinc Sulfate) 220 mg DAILY PO Last administered on 10/06/18 09:20; Admin Dose 220 MG; Start 10/06/18 at 09:00 Eye Lubricant (Artificial Tears Oph) 1 drop TID BOTH EYES Last administered on 10/06/18 12:49; Admin Dose 1 DROP; Start 10/05/18 at 14:00 Linezolid 300 ml @ 300 mls/hr Q12 IVPB Last administered on 10/06/18 11:28; Admin Dose 300 MLS/HR; Start 10/05/18 at 12:30 Miscellaneous Information (Pending Santyl Order For Wound Care) This patient sams... PRN PRN XX SLOUGH/SOILED; Start 10/05/18 at 13:00 Collagenase (Santyl) 1 applic Q12 TOP Last administered on 10/06/18 11:33; Admin Dose 1 APPLIC; Start 10/05/18 at 14:00 Collagenase (Santyl) 1 applic PRN PRN TOP PRN; Start 10/05/18 at 15:39 Diagnostic Test (Pha) (Accu-Chek) 1 ea Q1H XX Last administered on 10/06/18 11:23; Admin Dose 1 EA; Start 10/05/18 at 19:00 Insulin Human Regular 100 unit/ Sodium Chloride 100 ml @ 0 mls/hr PER PROTOCOL IV Last administered on 10/05/18 20:17; Admin Dose 2 MLS/HR; Start 10/05/18 at 19:00 Miscellaneous Information (* Miscellaneous Pharmacy Order) Treatment of Hypoglycemia: 1.BG 51... Per protocol XX ; Start 10/05/18 at 18:30 Dextrose (D50w Syringe) 25 ml Q15M PRN IV DECREASED GLUCOSE; Start 10/05/18 at 18:30 Dextrose (D50w Syringe) 50 ml Q15M PRN IV DECREASED GLUCOSE; Start 10/05/18 at 18:30 Norepinephrine 250 ml @ 1.875 mls/ hr TITRATE IV Last administered on 10/05/18at 23:14; Admin Dose 7.5 MLS/HR; Start 10/05/18 at 23:00 Meropenem/Sodium Chloride 50 ml @ 100 mls/hr Q24H IVPB ; Start 10/06/18 at 21:00 Sodium Phosphate (Neutra-Phos) 500 mg BID GTB Last administered on 10/06/18at 11:31; Admin Dose 500 MG; Start 10/06/18 at 10:30 Sodium Phosphate 15 mmol/Sodium Chloride 255 ml @ 63.75 mls/ hr ONCE ONCE IVPB ; Start 10/06/18 at 11:30; Stop 10/06/18 at 15:29 Calcium/Vitamin D (Oyster Shell/ Vit-D (500/200)) 1 tab Q24H PO ; Start 10/06/18 at 17:00 Morphine Sulfate (morphine) 6 mg Q4H PRN GTB SEVERE PAIN LEVEL 7-10; Start 10/06/18 at 11:00 Lansoprazole (Prevacid) 30 mg DAILY@06 GTB ; Start 10/07/18 at 06:00 CARINE GOMEZ NP Oct 06, 2018 12:50
--- NOTE | 2018-10-06 13:28 | PN ---
Date/Time of Note Date/Time of Note DATE: 10/06/18 TIME: 13:24 Assessment/Plan VTE Prophylaxis Risk score (from Ns)>0 risk: 9 SCD applied (from Ns): Yes Pharmacological prophylaxis: heparin Lines/Catheters IV Catheter Type (from Nrs): Central Line Central line still needed: Yes Urinary Cath still in place: No Assessment/Plan Hospital Course 78 yo female with h/o ESRD, PAD, DMII, very debilitated who presents wtih septic shock and mulitorgain failure - Continue life support for now. This patient is at advanced state of illness with poor baseline quality of life, I know her from previously. She is now in shock and on life support without a good quality of life to return to. I discussed grave prognosis with her daughter. She is not quite ready for term inal extubation but she is willing to consider this in the coming days. There is very minimal chance for meaningful recovery here Acute repiratory failure: - Continue MV per pulm Septic shock: - Continue abx per ID, vasopressors DMII - inuslin DNR Consider terminal extubation in coming 1-2 days. Daughter aware Result Diagram: 10/06/18 0442 10/06/18 0442 Results 24hrs Laboratory Tests Test 10/05/18 15:13 10/05/18 17:58 10/05/18 19:49 10/05/18 21:07 Creatine Kinase 21 L Creatine Kinase Index 7.7 Creatinine Kinase MB 1.62 (Mass) Troponin I 0.087 Bedside Glucose 290 H 232 H 184 Test 10/05/18 22:04 10/05/18 23:02 10/05/18 23:58 10/06/18 01:17 Bedside Glucose 132 167 149 96 Test 10/06/18 02:23 10/06/18 03:16 10/06/18 04:42 10/06/18 05:14 Bedside Glucose 102 101 127 White Blood Count 26.9 H Red Blood Count 2.70 L Hemoglobin 7.7 L Hematocrit 26.5 L Mean Corpuscular Volume 98.1 Mean Corpuscular 28.5 L Hemoglobin Mean Corpuscular 29.1 L Hemoglobin Concent Red Cell Distribution 23.2 H Width Platelet Count 294 Mean Platelet Volume 10.0 Immature Granulocytes % 1.300 H Neutrophils % Segmented Neutrophils 49 % (Manual) Band Neutrophils % 39 H (Manual) Lymphocytes % Lymphocytes % (Manual) 9 L Monocytes % Monocytes % (Manual) 1 Eosinophils % Eosinophils % (Manual) 1 Basophils % Promyelocytes % (Manual) 1 H Nucleated Red Blood 1 H Cells % Immature Granulocytes # 0.340 H Neutrophils # Neutrophils # (Manual) 16.0 H Band Neutrophils # 10.4 H Lymphocytes (Manual) 2.4 Lymphocytes # Monocytes # Monocytes # (Manual) 0.2 L Eosinophils # Basophils # Promyelocytes # 0.2 H Nucleated Red Blood Cells # Platelet Estimate NORMAL Polychromasia 1+ Poikilocytosis 3+ Anisocytosis 3+ Macrocytosis 3+ Target Cells 1+ Ovalocytes 1+ Sodium Level 137 Potassium Level 4.3 Chloride Level 101 Carbon Dioxide Level 28 Anion Gap 8 Blood Urea Nitrogen 23 #H Creatinine 1.93 #H Est Glomerular Filtrat Rate mL/min Glucose Level 108 # Calcium Level 7.7 L Phosphorus Level 1.8 L Magnesium Level 2.0 Thyroid Stimulating 1.780 Hormone (TSH) Test 10/06/18 06:32 10/06/18 08:45 10/06/18 11:05 10/06/18 12:04 Bedside Glucose 114 85 80 Lactic Acid Level 1.2 Test 10/06/18 12:50 Bedside Glucose 136 Subjective 24 Hr Interval Summary Free Text/Dictation remains intubated, sedated on pressors I discussed grave state of illness with patient's daughter whom I remember from before Exam/Review of Systems Vital Signs Vitals Vital Signs Date Temp Pulse Resp B/P (MAP) Pulse Ox O2 O2 Flow FiO2 Time Delivery Rate 10/06/18 82 16 112/44 99 11:30 (66) 10/06/18 30 11:10 10/06/18 Mechanical 11:00 Ventilator 10/06/18 98.5 08:00 Intake and Output 10/05/18 10/05/18 10/06/18 1515:00 23:00 07:00 IntakeIntake Total 693.95 ml 861.52 ml 582.29 ml OutputOutput Total 1770 ml 525 ml 168 ml BalanceBalance -1076.05 ml 336.52 ml 414.29 ml Medications Medications Current Medications Propofol 100 ml @ 1.8 mls/hr ONCE STAT IV Last administered on 10/05/18at 08:04; Admin Dose 1.8 MLS/HR; Start 10/05/18 at 07:30; Stop 10/07/18 at 15:03 Sodium Chloride 1,000 ml @ 50 mls/hr Q20H IV Last administered on 10/06/18at 06:39; Admin Dose 50 MLS/HR; Start 10/05/18 at 08:53 Ondansetron HCl (Zofran Inj) 4 mg Q6H PRN IV NAUSEA AND/OR VOMITING; Start 10/05/18 at 09:00 Acetaminophen (Tylenol Liquid) 650 mg Q6H PRN PO PAIN LEVEL 1-3 OR FEVER; Start 10/05/18 at 09:00 Docusate Sodium (Colace) 100 mg Q12H PRN PO CONSTIPATION; Start 10/05/18 at 09:00 Aspirin (Aspirin) 81 mg DAILY PO Last administered on 10/06/18 09:21; Admin Dose 81 MG; Start 10/06/18 at 09:00 Atorvastatin Calcium (Lipitor) 80 mg QHS PO Last administered on 10/05/18 2 0:09; Admin Dose 80 MG; Start 10/05/18 at 21:00 Cholecalciferol (Vitamin D) 2,000 unit DAILY PO Last administered on 10/06/18 09:21; Admin Dose 2,000 UNIT; Start 10/06/18 at 09:00 Clopidogrel Bisulfate (plaVIX) 75 mg DAILY PO Last administered on 10/06/18 09:21; Admin Dose 75 MG; Start 10/06/18 at 09:00 Ferrous Sulfate (Ferrous Sulfate (Ec)) 325 mg BID PO Last administered on 10/06/18 09:20; Admin Dose 325 MG; Start 10/05/18 at 21:00 Folic Acid (Folic Acid) 1 mg DAILY PO Last administered on 10/06/18 09:21; Admin Dose 1 MG; Start 10/06/18 at 09:00 Levothyroxine Sodium (Synthroid) 50 mcg BEFORE BREAKFAST PO Last administered on 10/06/18 07:00; Admin Dose 50 MCG; Start 10/06/18 at 07:00 Multivit/Ca Carb/ B Cmplx/FA/Prenat (Lizzy-Juanpablo) 1 tab DAILY PO Last administered on 10/06/18 09:21; Admin Dose 1 TAB; Start 10/06/18 at 09:00 Polyethylene Glycol (Miralax) 17 gm DAILY PO Last administered on 10/06/18 09:24; Admin Dose 17 GM; Start 10/06/18 at 09:00 Vitamin B Complex/ Vitamin C (Berocca) 1 cap DAILY PO Last administered on 10/06/18 09:20; Admin Dose 1 CAP; Start 10/06/18 at 09:00 Zinc Sulfate (Zinc Sulfate) 220 mg DAILY PO Last administered on 10/06/18 09:20; Admin Dose 220 MG; Start 10/06/18 at 09:00 Eye Lubricant (Artificial Tears Oph) 1 drop TID BOTH EYES Last administered on 10/06/18 12:49; Admin Dose 1 DROP; Start 10/05/18 at 14:00 Linezolid 300 ml @ 300 mls/hr Q12 IVPB Last administered on 10/06/18 11:28; Admin Dose 300 MLS/HR; Start 10/05/18 at 12:30 Miscellaneous Information (Pending Santyl Order For Wound Care) This patient sams... PRN PRN XX SLOUGH/SOILED; Start 10/05/18 at 13:00 Collagenase (Santyl) 1 applic Q12 TOP Last administered on 10/06/18 11:33; Admin Dose 1 APPLIC; Start 10/05/18 at 14:00 Collagenase (Santyl) 1 applic PRN PRN TOP PRN; Start 10/05/18 at 15:39 Diagnostic Test (Pha) (Accu-Chek) 1 ea Q1H XX Last administered on 10/06/18 12:49; Admin Dose 1 EA; Start 10/05/18 at 19:00 Insulin Human Regular 100 unit/ Sodium Chloride 100 ml @ 0 mls/hr PER PROTOCOL IV Last administered on 10/05/18 20:17; Admin Dose 2 MLS/HR; Start 10/05/18 at 19:00 Miscellaneous Information (* Miscellaneous Pharmacy Order) Treatment of Hypoglycemia: 1.BG 51... Per protocol XX ; Start 10/05/18 at 18:30 Dextrose (D50w Syringe) 25 ml Q15M PRN IV DECREASED GLUCOSE; Start 10/05/18 at 18:30 Dextrose (D50w Syringe) 50 ml Q15M PRN IV DECREASED GLUCOSE; Start 10/05/18 at 18:30 Norepinephrine 250 ml @ 1.875 mls/ hr TITRATE IV Last administered on 10/05/18at 23:14; Admin Dose 7.5 MLS/HR; Start 10/05/18 at 23:00 Meropenem/Sodium Chloride 50 ml @ 100 mls/hr Q24H IVPB ; Start 10/06/18 at 21:00 Sodium Phosphate (Neutra-Phos) 500 mg BID GTB Last administered on 10/06/18at 11:31; Admin Dose 500 MG; Start 10/06/18 at 10:30 Sodium Phosphate 15 mmol/Sodium Chloride 255 ml @ 63.75 mls/ hr ONCE ONCE IVPB ; Start 10/06/18 at 11:30; Stop 10/06/18 at 15:29 Calcium/Vitamin D (Oyster Shell/ Vit-D (500/200)) 1 tab Q24H PO ; Start 10/06/18 at 17:00 Morphine Sulfate (morphine) 6 mg Q4H PRN GTB SEVERE PAIN LEVEL 7-10; Start 10/06/18 at 11:00 Lansoprazole (Prevacid) 30 mg DAILY@06 GTB ; Start 10/07/18 at 06:00 Fluconazole/ Sodium Chloride 50 ml @ 50 mls/hr Q24H IVPB ; Start 10/06/18 at 14:00 ADITI BOWDEN MD Oct 06, 2018 13:28
[2018-10-06] MEDS: FLUCONAZOLE 100 MG/50 ML (PMX) 50 ML IVPB SCH (14:11)
[2018-10-06] MEDS ORDERED: GLUCAGON 1 MG INJ IM PRN (15:30)
[2018-10-06] MEDS ORDERED: GLUCOSE GEL 15 GRAM TUBE PO PRN ×2 (15:30)
[2018-10-06] MEDS ORDERED: INSULIN GLARGINE [LANTus] (100 UNITS/ML) SYG SC SCH ×3 (15:30→21:00)
[2018-10-06] MEDS ORDERED: DEXTROSE 50% 50 ML SYRINGE IV PRN (15:30)
[2018-10-06] MEDS ORDERED: GLUCOSE GEL 15 GRAM TUBE BUCCAL PRN (15:30)
[2018-10-06] MEDS: CALCIUM/VITAMIN D (500/200) TAB PO SCH (17:07)
--- NOTE | 2018-10-06 17:56 | CONS ---
Date/Time of Note Date/Time of Note DATE: 10/06/18 TIME: 17:54 Assessment/Plan Assessment/Plan Assessment/Plan Acute respiratory failure Intubated, on broad-spectrum IV antibiotic coverage, on pressors, pulmonary medicine involved with her care Sepsis syndrome/multiorgan system failure secondary to pneumonia, urinary tract infection, open unstageable wounds Stage renal disease Transient cardiac arrest with ROSC in the emergency room Baseline history of encephalopathy secondary to prior hospital admission with anoxic brain injury Debility I spoke with patient's daughter at the bedside she seems to be resigned to the fact that her mother may however my impressions are that that will not be tonight. I did ask the nursing staff to residential counselor patient and ask patient's daughter whether or not she wants to escalate her care throughout the night if patient becomes increasingly unstable. Resuscitate, do not expect her to survive this hospitalization but will be very careful and supporting patient's daughter's wishes as patient has survive catastrophic events in the past. Result Diagram: 10/06/18 0442 10/06/18 0442 Results 24hrs Laboratory Tests Test 10/05/18 17:58 10/05/18 19:49 10/05/18 21:07 10/05/18 22:04 Bedside Glucose 290 H 232 H 184 132 Test 10/05/18 23:02 10/05/18 23:58 10/06/18 01:17 10/06/18 02:23 Bedside Glucose 167 149 96 102 Test 10/06/18 03:16 10/06/18 04:42 10/06/18 05:14 10/06/18 06:32 Bedside Glucose 101 127 114 White Blood Count 26.9 H Red Blood Count 2.70 L Hemoglobin 7.7 L Hematocrit 26.5 L Mean Corpuscular Volume 98.1 Mean Corpuscular 28.5 L Hemoglobin Mean Corpuscular 29.1 L Hemoglobin Concent Red Cell Distribution 23.2 H Width Platelet Count 294 Mean Platelet Volume 10.0 Immature Granulocytes % 1.300 H Neutrophils % Segmented Neutrophils 49 % (Manual) Band Neutrophils % 39 H (Manual) Lymphocytes % Lymphocytes % (Manual) 9 L Monocytes % Monocytes % (Manual) 1 Eosinophils % Eosinophils % (Manual) 1 Basophils % Promyelocytes % (Manual) 1 H Nucleated Red Blood 1 H Cells % Immature Granulocytes # 0.340 H Neutrophils # Neutrophils # (Manual) 16.0 H Band Neutrophils # 10.4 H Lymphocytes (Manual) 2.4 Lymphocytes # Monocytes # Monocytes # (Manual) 0.2 L Eosinophils # Basophils # Promyelocytes # 0.2 H Nucleated Red Blood Cells # Platelet Estimate NORMAL Polychromasia 1+ Poikilocytosis 3+ Anisocytosis 3+ Macrocytosis 3+ Target Cells 1+ Ovalocytes 1+ Sodium Level 137 Potassium Level 4.3 Chloride Level 101 Carbon Dioxide Level 28 Anion Gap 8 Blood Urea Nitrogen 23 #H Creatinine 1.93 #H Est Glomerular Filtrat Rate mL/min Glucose Level 108 # Calcium Level 7.7 L Phosphorus Level 1.8 L Magnesium Level 2.0 Thyroid Stimulating 1.780 Hormone (TSH) Test 10/06/18 08:45 10/06/18 11:05 10/06/18 12:04 10/06/18 12:50 Bedside Glucose 85 80 136 Lactic Acid Level 1.2 Test 10/06/18 14:07 10/06/18 14:52 10/06/18 16:26 Bedside Glucose 97 74 78 Consultation Date/Type/Reason Admit Date/Time Oct 05, 2018 at 07:51 Hx of Present Illness Patient is a 78-year presents back to [facility] respiratory failure currently intubated in the intensive care unit. Etiology of sepsis possibly urinary tract infection possibly from stage IV decubiti. Patient also has significant comorbid medical problems including end-stage renal disease type 2 diabetes encephalopathy reviewing patient's medical records speaking to patient's critical care nurse patient has at least 3 areas that could be causing her sepsis syndrome 1 bibasilar pneumonia #2 urinary tract infection #3 open unstageable wounds. In spite of that patient was being treated aggressively seen by multiple different subspecialists. Last time I was involved with this patient's care was her last hospitalization that was within the last 2 months. Also comorbid medical problems include a history of type 2 diabetes and end- stage renal disease but essentially patient is dying from multiorgan system failure. Unable to get a review of systems patient is obtunded and intubated Past Medical History Medical History: congestive heart failure, coronary artery disease, diabetes, hypertension, renal disease (ESRD) Medications Current Medications Propofol 100 ml @ 1.8 mls/hr ONCE STAT IV Last administered on 10/05/18at 08:04; Admin Dose 1.8 MLS/HR; Start 10/05/18 at 07:30; Stop 10/07/18 at 15:03 Sodium Chloride 1,000 ml @ 50 mls/hr Q20H IV Last administered on 10/06/18 06:39; Admin Dose 50 MLS/HR; Start 10/05/18 at 08:53 Ondansetron HCl (Zofran Inj) 4 mg Q6H PRN IV NAUSEA AND/OR VOMITING; Start 10/05/18 at 09:00 Acetaminophen (Tylenol Liquid) 650 mg Q6H PRN PO PAIN LEVEL 1-3 OR FEVER; Start 10/05/18 at 09:00 Docusate Sodium (Colace) 100 mg Q12H PRN PO CONSTIPATION; Start 10/05/18 at 09:00 Aspirin (Aspirin) 81 mg DAILY PO Last administered on 10/06/18 09:21; Admin Dose 81 MG; Start 10/06/18 at 09:00 Atorvastatin Calcium (Lipitor) 80 mg QHS PO Last administered on 10/05/18 20:09; Admin Dose 80 MG; Start 10/05/18 at 21:00 Cholecalciferol (Vitamin D) 2,000 unit DAILY PO Last administered on 10/06/18 09:21; Admin Dose 2,000 UNIT; Start 10/06/18 at 09:00 Clopidogrel Bisulfate (plaVIX) 75 mg DAILY PO Last administered on 10/06/18 09:21; Admin Dose 75 MG; Start 10/06/18 at 09:00 Ferrous Sulfate (Ferrous Sulfate (Ec)) 325 mg BID PO Last administered on 10/06/18 09:20; Admin Dose 325 MG; Start 10/05/18 at 21:00 Folic Acid (Folic Acid) 1 mg DAILY PO Last administered on 10/06/18 09:21; Admin Dose 1 MG; Start 10/06/18 at 09:00 Levothyroxine Sodium (Synthroid) 50 mcg BEFORE BREAKFAST PO Last administered on 10/06/18 07:00; Admin Dose 50 MCG; Start 10/06/18 at 07:00 Multivit/Ca Carb/ B Cmplx/FA/Prenat (Lizzy-Juanpablo) 1 tab DAILY PO Last administered on 10/06/18 09:21; Admin Dose 1 TAB; Start 10/06/18 at 09:00 Polyethylene Glycol (Miralax) 17 gm DAILY PO Last administered on 10/06/18 09:24; Admin Dose 17 GM; Start 10/06/18 at 09:00 Vitamin B Complex/ Vitamin C (Berocca) 1 cap DAILY PO Last administered on 10/06/18 09:20; Admin Dose 1 CAP; Start 10/06/18 at 09:00 Zinc Sulfate (Zinc Sulfate) 220 mg DAILY PO Last administered on 10/06/18 09:20; Admin Dose 220 MG; Start 10/06/18 at 09:00 Eye Lubricant (Artificial Tears Oph) 1 drop TID BOTH EYES Last administered on 10/06/18 12:49; Admin Dose 1 DROP; Start 10/05/18 at 14:00 Linezolid 300 ml @ 300 mls/hr Q12 IVPB Last administered on 10/06/18 11:28; Admin Dose 300 MLS/HR; Start 10/05/18 at 12:30 Miscellaneous Information (Pending Santyl Order For Wound Care) This patient sams... PRN PRN XX SLOUGH/SOILED; Start 10/05/18 at 13:00 Collagenase (Santyl) 1 applic Q12 TOP Last administered on 10/06/18 11:33; Admin Dose 1 APPLIC; Start 10/05/18 at 14:00 Collagenase (Santyl) 1 applic PRN PRN TOP PRN; Start 10/05/18 at 15:39 Norepinephrine 250 ml @ 1.875 mls/ hr TITRATE IV Last administered on 10/05/18 23:14; Admin Dose 7.5 MLS/HR; Start 10/05/18 at 23:00 Meropenem/Sodium Chloride 50 ml @ 100 mls/hr Q24H IVPB ; Start 10/06/18 at 21:00 Sodium Phosphate (Neutra-Phos) 500 mg BID GTB Last administered on 10/06/18 11:31; Admin Dose 500 MG; Start 10/06/18 at 10:30 Calcium/Vitamin D (Oyster Shell/ Vit-D (500/200)) 1 tab Q24H PO Last administered on 10/06/18 17:07; Admin Dose 1 TAB; Start 10/06/18 at 17:00 Morphine Sulfate (morphine) 6 mg Q4H PRN GTB SEVERE PAIN LEVEL 7-10; Start 10/06/18 at 11:00 Lansoprazole (Prevacid) 30 mg DAILY@06 GTB ; Start 10/07/18 at 06:00 Fluconazole/ Sodium Chloride 50 ml @ 50 mls/hr Q24H IVPB Last administered on at 14:11; Admin Dose 50 MLS/HR; Start 10/06/18 at 14:00 Miscellaneous Information 1 ea NOTE XX ; Start 10/06/18 at 15:30 Glucose (Glutose) 15 gm Q15M PRN PO DECREASED GLUCOSE; Start 10/06/18 at 15:30 Glucose (Glutose) 22.5 gm Q15M PRN PO DECREASED GLUCOSE; Start 10/06/18 at 15:30 Dextrose (D50w Syringe) 25 ml Q15M PRN IV DECREASED GLUCOSE; Start 10/06/18 at 15:30 Dextrose (D50w Syringe) 50 ml Q15M PRN IV DECREASED GLUCOSE; Start 10/06/18 at 15:30 Glucagon (Glucagen) 1 mg Q15M PRN IM DECREASED GLUCOSE; Start 10/06/18 at 15:30 Glucose (Glutose) 15 gm Q15M PRN BUCCAL DECREASED GLUCOSE; Start 10/06/18 at 15:30 Insulin Glargine (Lantus) 9 units QHS SC ; Start 10/07/18 at 21:00 Insulin Glargine (Lantus) 9 units ONCE SC ; Start 10/06/18 at 21:00; Stop 10/06/18 at 23:00 Allergies: Coded Allergies: codeine (Verified Allergy, Mild, ANXIETY, 10/05/18) milk (Verified Allergy, Mild, GAS, 10/05/18) albuterol (Unverified Allergy, Unknown, 10/05/18) amlodipine (Unverified Allergy, Unknown, 10/05/18) clonidine (Unverified Allergy, Unknown, 10/05/18) diazepam (Unverified Allergy, Unknown, 10/05/18) diphenhydramine (Unverified Allergy, Unknown, 10/05/18) melatonin (Unverified Allergy, Unknown, 10/05/18) Uncoded Allergies: HEPARIN SODIUM (Allergy, Unknown, 09/08/18) NIFEDIPINE ER (Allergy, Unknown, 09/08/18) Past Surgical History Past Surgical Hx: other (Unknown) Social History Alcohol Use: none Smoking Status: Never smoker Drug Use: none Exam/Review of Systems Vital Signs Vitals Vital Signs Date Temp Pulse Resp B/P (MAP) Pulse Ox O2 O2 Flow FiO2 Time Delivery Rate 10/06/18 72 17 100 30 17:10 10/06/18 123/40 16:15 (67) 10/06/18 97.9 Mechanical 16:00 Ventilator Intake and Output 10/05/18 10/05/18 10/06/18 1515:00 23:00 07:00 IntakeIntake Total 693.95 ml 861.52 ml 582.29 ml OutputOutput Total 1770 ml 525 ml 168 ml BalanceBalance -1076.05 ml 336.52 ml 414.29 ml Exam Constitutional: other (Intubated female on propofol) Eyes: nl conjunctiva, EOMI, nl lids, nl sclera, PERRL; No icteric, No fundi, disc, No other ENMT: nl external ears & nose, nl lips & teeth, nl nasal mucosa & septum; No mucosa pink and moist, No intubated, No tympanic membranes, No other Neck: supple, non-tender; No jvd, No bruits, No masses, No thyromegaly, No nuchal rigidity, No other Respiratory: No clear to auscultation, No normal air movement, No congested cough, No crackles/rales, No diminished breath sounds, No intercostal retraction, No labored breathing, No respirations, No tactile fremitus, No wheezing, No other Cardiovascular: regular rate and rhythm, nl pulses; No bruits, No diastolic murmur, No edema, No gallop, No irregular rhythm, No jugular venous distention (JVD), No murmurs/extra sounds, No rub, No systolic murmur, No S3, No S4, No other Neurological: unresponsive (Sedated), other Medications Medications Current Medications Propofol 100 ml @ 1.8 mls/hr ONCE STAT IV Last administered on 10/05/18at 08:04; Admin Dose 1.8 MLS/HR; Start 10/05/18 at 07:30; Stop 10/07/18 at 15:03 Sodium Chloride 1,000 ml @ 50 mls/hr Q20H IV Last administered on 10/06/18at 06:39; Admin Dose 50 MLS/HR; Start 10/05/18 at 08:53 Ondansetron HCl (Zofran Inj) 4 mg Q6H PRN IV NAUSEA AND/OR VOMITING; Start 10/05/18 at 09:00 Acetaminophen (Tylenol Liquid) 650 mg Q6H PRN PO PAIN LEVEL 1-3 OR FEVER; Start 10/05/18 at 09:00 Docusate Sodium (Colace) 100 mg Q12H PRN PO CONSTIPATION; Start 10/05/18 at 09:00 Aspirin (Aspirin) 81 mg DAILY PO Last administered on 10/06/18 09:21; Admin Dose 81 MG; Start 10/06/18 at 09:00 Atorvastatin Calcium (Lipitor) 80 mg QHS PO Last administered on 10/05/18 20:09; Admin Dose 80 MG; Start 10/05/18 at 21:00 Cholecalciferol (Vitamin D) 2,000 unit DAILY PO Last administered on 10/06/18 09:21; Admin Dose 2,000 UNIT; Start 10/06/18 at 09:00 Clopidogrel Bisulfate (plaVIX) 75 mg DAILY PO Last administered on 10/06/18 09:21; Admin Dose 75 MG; Start 10/06/18 at 09:00 Ferrous Sulfate (Ferrous Sulfate (Ec)) 325 mg BID PO Last administered on 10/06/18 09:20; Admin Dose 325 MG; Start 10/05/18 at 21:00 Folic Acid (Folic Acid) 1 mg DAILY PO Last administered on 10/06/18 09:21; Admin Dose 1 MG; Start 10/06/18 at 09:00 Levothyroxine Sodium (Synthroid) 50 mcg BEFORE BREAKFAST PO Last administered on 10/06/18 07:00; Admin Dose 50 MCG; Start 10/06/18 at 07:00 Multivit/Ca Carb/ B Cmplx/FA/Prenat (Lizzy-Juanpablo) 1 tab DAILY PO Last administered on 10/06/18 09:21; Admin Dose 1 TAB; Start 10/06/18 at 09:00 Polyethylene Glycol (Miralax) 17 gm DAILY PO Last administered on 10/06/18 09:24; Admin Dose 17 GM; Start 10/06/18 at 09:00 Vitamin B Complex/ Vitamin C (Berocca) 1 cap DAILY PO Last administered on 10/06/18 09:20; Admin Dose 1 CAP; Start 10/06/18 at 09:00 Zinc Sulfate (Zinc Sulfate) 220 mg DAILY PO Last administered on 10/06/18 09:20; Admin Dose 220 MG; Start 10/06/18 at 09:00 Eye Lubricant (Artificial Tears Oph) 1 drop TID BOTH EYES Last administered on 10/06/18 12:49; Admin Dose 1 DROP; Start 10/05/18 at 14:00 Linezolid 300 ml @ 300 mls/hr Q12 IVPB Last administered on 10/06/18 11:28; Admin Dose 300 MLS/HR; Start 10/05/18 at 12:30 Miscellaneous Information (Pending Santyl Order For Wound Care) This patient sams... PRN PRN XX SLOUGH/SOILED; Start 10/05/18 at 13:00 Collagenase (Santyl) 1 applic Q12 TOP Last administered on 10/06/18 11:33; Admin Dose 1 APPLIC; Start 10/05/18 at 14:00 Collagenase (Santyl) 1 applic PRN PRN TOP PRN; Start 10/05/18 at 15:39 Norepinephrine 250 ml @ 1.875 mls/ hr TITRATE IV Last administered on 10/05/18 23:14; Admin Dose 7.5 MLS/HR; Start 10/05/18 at 23:00 Meropenem/Sodium Chloride 50 ml @ 100 mls/hr Q24H IVPB ; Start 10/06/18 at 21:00 Sodium Phosphate (Neutra-Phos) 500 mg BID GTB Last administered on 10/06/18at 11:31; Admin Dose 500 MG; Start 10/06/18 at 10:30 Calcium/Vitamin D (Oyster Shell/ Vit-D (500/200)) 1 tab Q24H PO Last administered on 10/06/18 17:07; Admin Dose 1 TAB; Start 10/06/18 at 17:00 Morphine Sulfate (morphine) 6 mg Q4H PRN GTB SEVERE PAIN LEVEL 7-10; Start 10/06/18 at 11:00 Lansoprazole (Prevacid) 30 mg DAILY@06 GTB ; Start 10/07/18 at 06:00 Fluconazole/ Sodium Chloride 50 ml @ 50 mls/hr Q24H IVPB Last administered on 10/06/18at 14:11; Admin Dose 50 MLS/HR; Start 10/06/18 at 14:00 Miscellaneous Information 1 ea NOTE XX ; Start 10/06/18 at 15:30 Glucose (Glutose) 15 gm Q15M PRN PO DECREASED GLUCOSE; Start 10/06/18 at 15:30 Glucose (Glutose) 22.5 gm Q15M PRN PO DECREASED GLUCOSE; Start 10/06/18 at 15:30 Dextrose (D50w Syringe) 25 ml Q15M PRN IV DECREASED GLUCOSE; Start 10/06/18 at 15:30 Dextrose (D50w Syringe) 50 ml Q15M PRN IV DECREASED GLUCOSE; Start 10/06/18 at 15:30 Glucagon (Glucagen) 1 mg Q15M PRN IM DECREASED GLUCOSE; Start 10/06/18 at 15:30 Glucose (Glutose) 15 gm Q15M PRN BUCCAL DECREASED GLUCOSE; Start 10/06/18 at 15:30 Insulin Glargine (Lantus) 9 units QHS SC ; Start 10/07/18 at 21:00 Insulin Glargine (Lantus) 9 units ONCE SC ; Start 10/06/18 at 21:00; Stop 10/06/18 at 23:00 CIRO ADAMS Oct 06, 2018 17:55
[2018-10-06] MEDS: ATORVASTATIN 80 MG TAB PO SCH (20:54)
[2018-10-06] MEDS: MEROPENEM 500MG/50 ML (PMX) 50 ML IVPB SCH (20:54)
[2018-10-06] MEDS: PROPOFOL 100 ML IV SCH (21:36)
[2018-10-07] VITALS (97 sets, daily range): BP systolic 94–152; BP diastolic 39–80; PULSE 71–82; RESP 12–24
[2018-10-07] MEDS: SOD CHLORIDE 0.9% 1,000 ML IV SCH ×3 (00:53→20:53)
[2018-10-07] MEDS: NORepinephrine 8MG/250 ML (PMX 250 ML IV SCH ×2 (04:17→17:29)
[2018-10-07] MEDS: LANSOPRAZOLE 30 MG CAP GTB SCH (05:49)
[2018-10-07] MEDS: LEVOTHYROXINE 50 MCG TAB PO SCH (06:01)
--- NOTE | 2018-10-07 06:43 | CONS ---
Date/Time of Note Date/Time of Note DATE: 10/07/18 TIME: 06:36 Assessment/Plan Assessment/Plan Assessment/Plan 78 yo Female with 1) Hypoxia with Respiratory Failure 2) Severe Sepsis 3) S/p Cardiac Arrest with ROSC 4) ESRD on HD 5) Anemia, Chronic CKD 6) Hypophosphatemia Lactate normal now HD plan for today CXR reviewed this am at bedside. UF ordered as tolerated Phos normal, Mg OK Added CBC and BMP to am labs, not performed. Cont supportive Care, HD catheter Care. No Heparin Levophed PRN for BP support, Keep MAPs>60mmHg. Pt code status DNR, Cont HD treatment. Thank you for the opportunity to participate in the care of Ms Coffman Discussed with DIRECTOR LEARNING. CC time spent >30 min. Result Diagram: 10/06/182 10/06/18 0442 Results 24hrs Laboratory Tests Test 10/06/18 08:45 10/06/18 11:05 10/06/18 12:04 10/06/18 12:50 Bedside Glucose 85 80 136 Lactic Acid Level 1.2 Test 10/06/18 14:07 10/06/18 14:52 10/06/18 16:26 10/06/18 20:53 Bedside Glucose 97 74 78 147 Test 10/07/18 04:24 Phosphorus Level 3.8 # Magnesium Level 1.8 Consultation Date/Type/Reason Admit Date/Time Oct 05, 2018 at 07:51 Initial Consult Date 10/05/18 Type of Consult Nephrology Requesting Provider: YOEL DAVILA 24 HR Interval Summary Free Text/Dictation Levophed down to 3mcg Pt remains intubated and sedated Last HD was Subjective hx not possible: pt critical status Constitutional: requiring O2 Exam/Review of Systems Vital Signs Vitals Vital Signs Date Temp Pulse Resp B/P (MAP) Pulse Ox O2 O2 Flow FiO2 Time Delivery Rate 10/07/18 82 20 121/42 100 Mechanical 06:00 (68) Ventilator 10/07/18 30 05:22 10/07/18 97.5 04:00 Intake and Output 10/06/18 10/06/18 10/07/18 1515:00 23:00 07:00 IntakeIntake Total 935.89 ml 896.025 ml 477.175 ml OutputOutput Total 10 ml 51 ml BalanceBalance 925.89 ml 845.025 ml 477.175 ml Exam Head: atraumatic Eyes: EOMI ENMT: mucosa pink and moist, intubated Neck: No jvd Respiratory: clear to auscultation (LEFT), crackles/rales (Rt); No labored breathing Gastrointestinal: soft, bowel sounds; No distended Extremities: No edema, No pitting pedal edema Neurological: other (sedated) Skin: nl turgor; No diaphoresis Medications Medications Current Medications Propofol 100 ml @ 1.8 mls/hr ONCE STAT IV Last administered on 10/05/18 08:04; Admin Dose 1.8 MLS/HR; Start 10/05/18 at 07:30; Stop 10/07/18 at 15:03 Sodium Chloride 1,000 ml @ 50 mls/hr Q20H IV Last administered on 10/06/18 06:39; Admin Dose 50 MLS/HR; Start 10/05/18 at 08:53 Ondansetron HCl (Zofran Inj) 4 mg Q6H PRN IV NAUSEA AND/OR VOMITING; Start 10/05/18 at 09:00 Acetaminophen (Tylenol Liquid) 650 mg Q6H PRN PO PAIN LEVEL 1-3 OR FEVER; Start 10/05/18 at 09:00 Docusate Sodium (Colace) 100 mg Q12H PRN PO CONSTIPATION; Start 10/05/18 at 09:00 Aspirin (Aspirin) 81 mg DAILY PO Last administered on 10/06/18 09:21; Admin Dose 81 MG; Start 10/06/18 at 09:00 Atorvastatin Calcium (Lipitor) 80 mg QHS PO Last administered on 10/06/18 20:54; Admin Dose 80 MG; Start 10/05/18 at 21:00 Cholecalciferol (Vitamin D) 2,000 unit DAILY PO Last administered on 10/06/18 09:21; Admin Dose 2,000 UNIT; Start 10/06/18 at 09:00 Clopidogrel Bisulfate (plaVIX) 75 mg DAILY PO Last administered on 10/06/18 09:21; Admin Dose 75 MG; Start 10/06/18 at 09:00 Ferrous Sulfate (Ferrous Sulfate (Ec)) 325 mg BID PO Last administered on 10/06/18 20:55; Admin Dose 325 MG; Start 10/05/18 at 21:00 Folic Acid (Folic Acid) 1 mg DAILY PO Last administered on 10/06/18 09:21; Admin Dose 1 MG; Start 10/06/18 at 09:00 Levothyroxine Sodium (Synthroid) 50 mcg BEFORE BREAKFAST PO Last administered on 10/07/18 06:01; Admin Dose 50 MCG; Start 10/06/18 at 07:00 Multivit/Ca Carb/ B Cmplx/FA/Prenat (Lizzy-Juanpablo) 1 tab DAILY PO Last administered on 10/06/18 09:21; Admin Dose 1 TAB; Start 10/06/18 at 09:00 Polyethylene Glycol (Miralax) 17 gm DAILY PO Last administered on 10/06/18 09:24; Admin Dose 17 GM; Start 10/06/18 at 09:00 Vitamin B Complex/ Vitamin C (Berocca) 1 cap DAILY PO Last administered on 09:20; Admin Dose 1 CAP; Start 10/06/18 at 09:00 Zinc Sulfate (Zinc Sulfate) 220 mg DAILY PO Last administered on 10/06/18 09:20; Admin Dose 220 MG; Start 10/06/18 at 09:00 Eye Lubricant (Artificial Tears Oph) 1 drop TID BOTH EYES Last administered on 10/06/18 20:54; Admin Dose 1 DROP; Start 10/05/18 at 14:00 Linezolid 300 ml @ 300 mls/hr Q12 IVPB Last administered on 10/06/18 21:36; Admin Dose 300 MLS/HR; Start 10/05/18 at 12:30 Miscellaneous Information (Pending Santyl Order For Wound Care) This patient sams... PRN PRN XX SLOUGH/SOILED; Start 10/05/18 at 13:00 Collagenase (Santyl) 1 applic Q12 TOP Last administered on 10/06/18 20:54; Admin Dose 1 APPLIC; Start 10/05/18 at 14:00 Collagenase (Santyl) 1 applic PRN PRN TOP PRN; Start 10/05/18 at 15:39 Norepinephrine 250 ml @ 1.875 mls/ hr TITRATE IV Last administered on 10/07/18 04:17; Admin Dose 5.625 MLS/HR; Start 10/05/18 at 23:00 Meropenem/Sodium Chloride 50 ml @ 100 mls/hr Q24H IVPB Last administered on 10/06/18at 20:54; Admin Dose 100 MLS/HR; Start 10/06/18 at 21:00 Sodium Phosphate (Neutra-Phos) 500 mg BID GTB Last administered on 10/06/18at 20:54; Admin Dose 500 MG; Start 10/06/18 at 10:30 Calcium/Vitamin D (Oyster Shell/ Vit-D (500/200)) 1 tab Q24H PO Last administered on 10/06/18at 17:07; Admin Dose 1 TAB; Start 10/06/18 at 17:00 Morphine Sulfate (morphine) 6 mg Q4H PRN GTB SEVERE PAIN LEVEL 7-10; Start 10/06/18 at 11:00 Lansoprazole (Prevacid) 30 mg DAILY@06 GTB Last administered on 10/07/18at 05:49; Admin Dose 30 MG; Start 10/07/18 at 06:00 Fluconazole/ Sodium Chloride 50 ml @ 50 mls/hr Q24H IVPB Last administered on 10/06/18at 14:11; Admin Dose 50 MLS/HR; Start 10/06/18 at 14:00 Miscellaneous Information 1 ea NOTE XX ; Start 10/06/18 at 15:30 Glucose (Glutose) 15 gm Q15M PRN PO DECREASED GLUCOSE; Start 10/06/18 at 15:30 Glucose (Glutose) 22.5 gm Q15M PRN PO DECREASED GLUCOSE; Start 10/06/18 at 15:30 Dextrose (D50w Syringe) 25 ml Q15M PRN IV DECREASED GLUCOSE; Start 10/06/18 at 15:30 Dextrose (D50w Syringe) 50 ml Q15M PRN IV DECREASED GLUCOSE; Start 10/06/18 at 15:30 Glucagon (Glucagen) 1 mg Q15M PRN IM DECREASED GLUCOSE; Start 10/06/18 at 15:30 Glucose (Glutose) 15 gm Q15M PRN BUCCAL DECREASED GLUCOSE; Start 10/06/18 at 15:30 Insulin Glargine (Lantus) 9 units QHS SC ; Start 10/07/18 at 21:00 Propofol 100 ml @ 1.818 mls/ hr Q12H IV Last administered on 10/06/18at 21:36; Admin Dose 2.545 MLS/HR; Start 10/06/18 at 21:30 Imaging Imaging CXR done this morning reviewed KATHIA SULLIVAN MD Oct 07, 2018 06:43
[2018-10-07] MEDS: FERROUS SULFATE (EC) 325 MG TAB PO SCH ×2 (09:00→21:52)
[2018-10-07] MEDS: PROPOFOL 100 ML IV SCH ×2 (09:30→21:30)
[2018-10-07] MEDS: NEUTRA-PHOS 250 MG PACKET GTB SCH ×2 (09:54→21:52)
[2018-10-07] MEDS: CLOPIDOGREL 75 MG TAB PO SCH (09:54)
[2018-10-07] MEDS: ASPIRIN 81 MG TAB PO SCH (09:54)
[2018-10-07] MEDS: CHOLECALCIFEROL 1,000 UNIT TAB PO SCH (09:54)
[2018-10-07] MEDS: MULTIVIT/CA CARB/B CMPLX/FA TAB PO SCH (09:54)
[2018-10-07] MEDS: ZINC SULFATE 220 MG CAP PO SCH (09:54)
[2018-10-07] MEDS: VITAMIN B COMPLEX/VIT C CAP PO SCH (09:54)
[2018-10-07] MEDS: POLYETHYLENE GLYCOL 17 GM PACKET PO SCH (09:54)
[2018-10-07] MEDS: FOLIC ACID 1 MG TAB PO SCH (09:54)
[2018-10-07] MEDS: LINEZOLID 600 MG/D5W (PMX) 300 ML IVPB SCH ×2 (09:54→21:53)
[2018-10-07] MEDS: COLLAGENASE 5 GM (UD JAR) TOP SCH ×2 (09:55→21:52)
[2018-10-07] MEDS: ARTIFICIAL TEARS 15 ML OPH BOTH EYES SCH ×3 (09:58→21:53)
--- NOTE | 2018-10-07 11:19 | PN ---
Date/Time of Note Date/Time of Note DATE: 10/07/18 TIME: 11:16 Assessment/Plan VTE Prophylaxis Risk score (from Ns)>0 risk: 7 Pharmacological prophylaxis: NA/contraindicated Pharm contraindication: renal impairment Assessment/Plan Hospital Course 78 yo female with h/o ESRD, PAD, DMII, very debilitated who presents with septic shock and multiorgan failure 1. Septic shock with multiorgan failure Continue IV antibiotics 2. Acute respiratory failure Continue mechanical ventilation 3. History of anoxic encephalopathy with functional quadriplegia Patient with poor baseline 4. End-stage renal disease Dialysis as tolerated 5. DMII Continue insulin DC planning: Patient is DNR, palliative care is following, possible terminal expiration in the coming days Result Diagram: 10/07/18 0424 10/07/18 0424 Results 24hrs Laboratory Tests Test 10/06/18 12:04 10/06/18 12:50 10/06/18 14:07 10/06/18 14:52 Lactic Acid Level 1.2 Bedside Glucose 136 97 74 Test 10/06/18 16:26 10/06/18 20:53 10/07/18 04:24 Bedside Glucose 78 147 White Blood Count 27.4 H Red Blood Count 2.47 L Hemoglobin 7.1 L Hematocrit 24.3 L Mean Corpuscular Volume 98.4 Mean Corpuscular 28.7 L Hemoglobin Mean Corpuscular 29.2 L Hemoglobin Concent Red Cell Distribution 23.1 H Width Platelet Count 244 Mean Platelet Volume 9.6 Immature Granulocytes % 1.500 H Neutrophils % Segmented Neutrophils 63 % (Manual) Band Neutrophils % 29 H (Manual) Lymphocytes % Lymphocytes % (Manual) 7 L Monocytes % Monocytes % (Manual) 1 Eosinophils % Basophils % Nucleated Red Blood 0.3 H Cells % Immature Granulocytes # 0.420 H Neutrophils # Neutrophils # (Manual) 19.4 H Band Neutrophils # 7.9 H Lymphocytes (Manual) 1.9 Lymphocytes # Monocytes # Monocytes # (Manual) 0.2 L Eosinophils # Basophils # Nucleated Red Blood Cells # Platelet Estimate NORMAL Polychromasia 3+ Poikilocytosis 2+ Anisocytosis 3+ Macrocytosis 3+ Sodium Level 136 Potassium Level 4.1 Chloride Level 102 Carbon Dioxide Level 28 Anion Gap 6 Blood Urea Nitrogen 29 H Creatinine 2.35 H Est Glomerular Filtrat Rate mL/min Glucose Level 130 Calcium Level 6.9 L Phosphorus Level 3.8 # Magnesium Level 1.8 Subjective 24 Hr Interval Summary Subjective hx not possible: pt non-verbal Exam/Review of Systems Vital Signs Vitals Vital Signs Date Temp Pulse Resp B/P (MAP) Pulse Ox O2 O2 Flow FiO2 Time Delivery Rate 10/07/18 77 08:00 10/07/18 16 107/46 100 07:30 (66) 10/07/18 Mechanical 07:00 Ventilator 10/07/18 30 05:22 10/07/18 97.5 04:00 Intake and Output 10/06/18 10/06/18 10/07/18 1515:00 23:00 07:00 IntakeIntake Total 935.89 ml 896.025 ml 535.345 ml OutputOutput Total 10 ml 51 ml BalanceBalance 925.89 ml 845.025 ml 535.345 ml Exam Constitutional: non-verbal ENMT: intubated Respiratory: clear to auscultation Cardiovascular: regular rate and rhythm Gastrointestinal: soft; No distended Musculoskeletal: nl extremities to inspection Medications Medications Current Medications Propofol 100 ml @ 1.8 mls/hr ONCE STAT IV Last administered on 10/05/18at 08:04; Admin Dose 1.8 MLS/HR; Start 10/05/18 at 07:30; Stop 10/07/18 at 15:03 Sodium Chloride 1,000 ml @ 50 mls/hr Q20H IV Last administered on 10/07/18at 09:41; Admin Dose 50 MLS/HR; Start 10/05/18 at 08:53 Ondansetron HCl (Zofran Inj) 4 mg Q6H PRN IV NAUSEA AND/OR VOMITING; Start at 09:00 Acetaminophen (Tylenol Liquid) 650 mg Q6H PRN PO PAIN LEVEL 1-3 OR FEVER; Start 10/05/18 at 09:00 Docusate Sodium (Colace) 100 mg Q12H PRN PO CONSTIPATION; Start 10/05/18 at 09:00 Aspirin (Aspirin) 81 mg DAILY PO Last administered on 10/07/18at 09:54; Admin Dose 81 MG; Start 10/06/18 at 09:00 Atorvastatin Calcium (Lipitor) 80 mg QHS PO Last administered on 10/06/18at 20:54; Admin Dose 80 MG; Start 10/05/18 at 21:00 Cholecalciferol (Vitamin D) 2,000 unit DAILY PO Last administered on 10/07/18 09:54; Admin Dose 2,000 UNIT; Start 10/06/18 at 09:00 Clopidogrel Bisulfate (plaVIX) 75 mg DAILY PO Last administered on 10/07/18 09:54; Admin Dose 75 MG; Start 10/06/18 at 09:00 Ferrous Sulfate (Ferrous Sulfate (Ec)) 325 mg BID PO Last administered on 10/06/18 20:55; Admin Dose 325 MG; Start 10/05/18 at 21:00 Folic Acid (Folic Acid) 1 mg DAILY PO Last administered on 10/07/18 09:54; Admi n Dose 1 MG; Start 10/06/18 at 09:00 Levothyroxine Sodium (Synthroid) 50 mcg BEFORE BREAKFAST PO Last administered on 10/07/18 06:01; Admin Dose 50 MCG; Start 10/06/18 at 07:00 Multivit/Ca Carb/ B Cmplx/FA/Prenat (Lizzy-Juanpablo) 1 tab DAILY PO Last administered on 10/07/18 09:54; Admin Dose 1 TAB; Start 10/06/18 at 09:00 Polyethylene Glycol (Miralax) 17 gm DAILY PO Last administered on 10/07/18 09:54; Admin Dose 17 GM; Start 10/06/18 at 09:00 Vitamin B Complex/ Vitamin C (Berocca) 1 cap DAILY PO Last administered on 10/07/18 09:54; Admin Dose 1 CAP; Start 10/06/18 at 09:00 Zinc Sulfate (Zinc Sulfate) 220 mg DAILY PO Last administered on 10/07/18 09:54; Admin Dose 220 MG; Start 10/06/18 at 09:00 Eye Lubricant (Artificial Tears Oph) 1 drop TID BOTH EYES Last administered on 10/07/18 09:58; Admin Dose 1 DROP; Start 10/05/18 at 14:00 Linezolid 300 ml @ 300 mls/hr Q12 IVPB Last administered on 10/07/18 09:54; Admin Dose 300 MLS/HR; Start 10/05/18 at 12:30 Miscellaneous Information (Pending [facility] Order For Wound Care) This patient sams... PRN PRN XX SLOUGH/SOILED; Start 10/05/18 at 13:00 Collagenase (Santyl) 1 applic Q12 TOP Last administered on 10/07/18at 09:55; Admin Dose 1 APPLIC; Start 10/05/18 at 14:00 Collagenase (Santyl) 1 applic PRN PRN TOP PRN; Start 10/05/18 at 15:39 Norepinephrine 250 ml @ 1.875 mls/ hr TITRATE IV Last administered on 10/07/18at 04:17; Admin Dose 5.625 MLS/HR; Start 10/05/18 at 23:00 Meropenem/Sodium Chloride 50 ml @ 100 mls/hr Q24H IVPB Last administered on 10/06/18at 20:54; Admin Dose 100 MLS/HR; Start 10/06/18 at 21:00 Sodium Phosphate (Neutra-Phos) 500 mg BID GTB Last administered on 10/07/18at 09:54; Admin Dose 500 MG; Start 10/06/18 at 10:30 Calcium/Vitamin D (Oyster Shell/ Vit-D (500/200)) 1 tab Q24H PO Last administered on 10/06/18at 17:07; Admin Dose 1 TAB; Start 10/06/18 at 17:00 Morphine Sulfate (morphine) 6 mg Q4H PRN GTB SEVERE PAIN LEVEL 7-10; Start 10/06/18 at 11:00 Lansoprazole (Prevacid) 30 mg DAILY@06 GTB Last administered on 10/07/18at 05:49; Admin Dose 30 MG; Start 10/07/18 at 06:00 Fluconazole/ Sodium Chloride 50 ml @ 50 mls/hr Q24H IVPB Last administered on 10/06/18at 14:11; Admin Dose 50 MLS/HR; Start 10/06/18 at 14:00 Miscellaneous Information 1 ea NOTE XX ; Start 10/06/18 at 15:30 Glucose (Glutose) 15 gm Q15M PRN PO DECREASED GLUCOSE; Start 10/06/18 at 15:30 Glucose (Glutose) 22.5 gm Q15M PRN PO DECREASED GLUCOSE; Start 10/06/18 at 15:30 Dextrose (D50w Syringe) 25 ml Q15M PRN IV DECREASED GLUCOSE; Start 10/06/18 at 15:30 Dextrose (D50w Syringe) 50 ml Q15M PRN IV DECREASED GLUCOSE; Start 10/06/18 at 15:30 Glucagon (Glucagen) 1 mg Q15M PRN IM DECREASED GLUCOSE; Start 10/06/18 at 15:30 Glucose (Glutose) 15 gm Q15M PRN BUCCAL DECREASED GLUCOSE; Start 10/06/18 at 15:30 Insulin Glargine (Lantus) 9 units QHS SC ; Start 10/07/18 at 21:00 Propofol 100 ml @ 1.818 mls/ hr Q12H IV Last administered on 10/06/18at 21:36; Admin Dose 2.545 MLS/HR; Start 10/06/18 at 21:30 ESTEFANI MODI Oct 07, 2018 11:19
--- NOTE | 2018-10-07 12:06 | CONS ---
Date/Time of Note Date/Time of Note DATE: 10/07/18 TIME: 11:59 Consult Date/Type/Reason Admit Date/Time Oct 05, 2018 at 07:51 Initial Consult Date 10/05/18 Type of Consultation: Pulm/CCM Requesting Provider: YOEL DAVILA Subjective Mildly responsive on the vent. Objective Vital Signs Date Temp Pulse Resp B/P (MAP) Pulse Ox O2 O2 Flow FiO2 Time Delivery Rate 10/07/18 77 08:00 10/07/18 16 107/46 100 07:30 (66) 10/07/18 Mechanical 07:00 Ventilator 10/07/18 30 05:22 10/07/18 97.5 04:00 Intake and Output 10/06/18 10/06/18 10/07/18 1515:00 23:00 07:00 IntakeIntake Total 935.89 ml 896.025 ml 535.345 ml OutputOutput Total 10 ml 51 ml BalanceBalance 925.89 ml 845.025 ml 535.345 ml Exam HEENT: Neck supple; no JVD; no LAD; + ET tube CVS: RRR, S1 and S2 CHEST: Coarse BS b/l ABD: Soft, NT, + BS EXT: No c/c: + edema Results/Medications Result Diagram: 10/07/18 0424 10/07/18 0424 Results 24 hrs Laboratory Tests Test 10/06/18 12:04 10/06/18 12:50 10/06/18 14:07 10/06/18 14:52 Lactic Acid Level 1.2 Bedside Glucose 136 97 74 Test 10/06/18 16:26 10/06/18 20:53 10/07/18 04:24 Bedside Glucose 78 147 White Blood Count 27.4 H Red Blood Count 2.47 L Hemoglobin 7.1 L Hematocrit 24.3 L Mean Corpuscular Volume 98.4 Mean Corpuscular 28.7 L Hemoglobin Mean Corpuscular 29.2 L Hemoglobin Concent Red Cell Distribution 23.1 H Width Platelet Count 244 Mean Platelet Volume 9.6 Immature Granulocytes % 1.500 H Neutrophils % Segmented Neutrophils 63 % (Manual) Band Neutrophils % 29 H (Manual) Lymphocytes % Lymphocytes % (Manual) 7 L Monocytes % Monocytes % (Manual) 1 Eosinophils % Basophils % Nucleated Red Blood 0.3 H Cells % Immature Granulocytes # 0.420 H Neutrophils # Neutrophils # (Manual) 19.4 H Band Neutrophils # 7.9 H Lymphocytes (Manual) 1.9 Lymphocytes # Monocytes # Monocytes # (Manual) 0.2 L Eosinophils # Basophils # Nucleated Red Blood Cells # Platelet Estimate NORMAL Polychromasia 3+ Poikilocytosis 2+ Anisocytosis 3+ Macrocytosis 3+ Sodium Level 136 Potassium Level 4.1 Chloride Level 102 Carbon Dioxide Level 28 Anion Gap 6 Blood Urea Nitrogen 29 H Creatinine 2.35 H Est Glomerular Filtrat Rate mL/min Glucose Level 130 Calcium Level 6.9 L Phosphorus Level 3.8 # Magnesium Level 1.8 Medications Current Medications Propofol 100 ml @ 1.8 mls/hr ONCE STAT IV Last administered on 10/05/18 08:04; Admin Dose 1.8 MLS/HR; Start 10/05/18 at 07:30; Stop 10/07/18 at 15:03 Sodium Chloride 1,000 ml @ 50 mls/hr Q20H IV Last administered on 10/07/18at 0 9:41; Admin Dose 50 MLS/HR; Start 10/05/18 at 08:53 Ondansetron HCl (Zofran Inj) 4 mg Q6H PRN IV NAUSEA AND/OR VOMITING; Start 10/05/18 at 09:00 Acetaminophen (Tylenol Liquid) 650 mg Q6H PRN PO PAIN LEVEL 1-3 OR FEVER; Start 10/05/18 at 09:00 Docusate Sodium (Colace) 100 mg Q12H PRN PO CONSTIPATION; Start 10/05/18 at 09:00 Aspirin (Aspirin) 81 mg DAILY PO Last administered on 10/07/18 09:54; Admin Dose 81 MG; Start 10/06/18 at 09:00 Atorvastatin Calcium (Lipitor) 80 mg QHS PO Last administered on 10/06/18at 20:54; Admin Dose 80 MG; Start 10/05/18 at 21:00 Cholecalciferol (Vitamin D) 2,000 unit DAILY PO Last administered on 10/07/18 09:54; Admin Dose 2,000 UNIT; Start 10/06/18 at 09:00 Clopidogrel Bisulfate (plaVIX) 75 mg DAILY PO Last administered on 10/07/18 09:54; Admin Dose 75 MG; Start 10/06/18 at 09:00 Ferrous Sulfate (Ferrous Sulfate (Ec)) 325 mg BID PO Last administered on 10/06/18 20:55; Admin Dose 325 MG; Start 10/05/18 at 21:00 Folic Acid (Folic Acid) 1 mg DAILY PO Last administered on 10/07/18 09:54; Admin Dose 1 MG; Start 10/06/18 at 09:00 Levothyroxine Sodium (Synthroid) 50 mcg BEFORE BREAKFAST PO Last administered on 10/07/18 06:01; Admin Dose 50 MCG; Start 10/06/18 at 07:00 Multivit/Ca Carb/ B Cmplx/FA/Prenat (Lizzy-Juanpablo) 1 tab DAILY PO Last administered on 10/07/18 09:54; Admin Dose 1 TAB; Start 10/06/18 at 09:00 Polyethylene Glycol (Miralax) 17 gm DAILY PO Last administered on 10/07/18 09:54; Admin Dose 17 GM; Start 10/06/18 at 09:00 Vitamin B Complex/ Vitamin C (Berocca) 1 cap DAILY PO Last administered on 10/07/18 09:54; Admin Dose 1 CAP; Start 10/06/18 at 09:00 Zinc Sulfate (Zinc Sulfate) 220 mg DAILY PO Last administered on 10/07/18 09:54; Admin Dose 220 MG; Start 10/06/18 at 09:00 Eye Lubricant (Artificial Tears Oph) 1 drop TID BOTH EYES Last administered on 10/07/18 09:58; Admin Dose 1 DROP; Start 10/05/18 at 14:00 Linezolid 300 ml @ 300 mls/hr Q12 IVPB Last administered on 10/07/18 09:54; Admin Dose 300 MLS/HR; Start 10/05/18 at 12:30 Miscellaneous Information (Pending Santyl Order For Wound Care) This patient sams... PRN PRN XX SLOUGH/SOILED; Start 10/05/18 at 13:00 Collagenase (Santyl) 1 applic Q12 TOP Last administered on 10/07/18 09:55; Admin Dose 1 APPLIC; Start 10/05/18 at 14:00 Collagenase (Santyl) 1 applic PRN PRN TOP PRN; Start 10/05/18 at 15:39 Norepinephrine 250 ml @ 1.875 mls/ hr TITRATE IV Last administered on 1/5/19at 04:17; Admin Dose 5.625 MLS/HR; Start 10/05/18 at 23:00 Meropenem/Sodium Chloride 50 ml @ 100 mls/hr Q24H IVPB Last administered on 10/06/18at 20:54; Admin Dose 100 MLS/HR; Start 10/06/18 at 21:00 Sodium Phosphate (Neutra-Phos) 500 mg BID GTB Last administered on 10/07/18at 09:54; Admin Dose 500 MG; Start 10/06/18 at 10:30 Calcium/Vitamin D (Oyster Shell/ Vit-D (500/200)) 1 tab Q24H PO Last administered on 10/06/18at 17:07; Admin Dose 1 TAB; Start 10/06/18 at 17:00 Morphine Sulfate (morphine) 6 mg Q4H PRN GTB SEVERE PAIN LEVEL 7-10; Start 10/06/18 at 11:00 Lansoprazole (Prevacid) 30 mg DAILY@06 GTB Last administered on 10/07/18at 05:49; Admin Dose 30 MG; Start 10/07/18 at 06:00 Fluconazole/ Sodium Chloride 50 ml @ 50 mls/hr Q24H IVPB Last administered on 10/06/18at 14:11; Admin Dose 50 MLS/HR; Start 10/06/18 at 14:00 Miscellaneous Information 1 ea NOTE XX ; Start 10/06/18 at 15:30 Glucose (Glutose) 15 gm Q15M PRN PO DECREASED GLUCOSE; Start 10/06/18 at 15:30 Glucose (Glutose) 22.5 gm Q15M PRN PO DECREASED GLUCOSE; Start 10/06/18 at 15:30 Dextrose (D50w Syringe) 25 ml Q15M PRN IV DECREASED GLUCOSE; Start 10/06/18 at 15:30 Dextrose (D50w Syringe) 50 ml Q15M PRN IV DECREASED GLUCOSE; Start 10/06/18 at 15:30 Glucagon (Glucagen) 1 mg Q15M PRN IM DECREASED GLUCOSE; Start 10/06/18 at 15:30 Glucose (Glutose) 15 gm Q15M PRN BUCCAL DECREASED GLUCOSE; Start 10/06/18 at 15:30 Insulin Glargine (Lantus) 9 units QHS SC ; Start 10/07/18 at 21:00 Propofol 100 ml @ 1.818 mls/ hr Q12H IV Last administered on 10/06/18at 21:36; Admin Dose 2.545 MLS/HR; Start 10/06/18 at 21:30 Assessment/Plan Additional Assessment/Plan IMP: 1. Septic Shock 2. Respiratory Failure/Vent Dependence 3. ESRD on HD 4. History of Anoxic Encephalopathy 5. Anemia RECS: 1. I spoke with family in detail about the larger picture with respect with Mrs. Coffman. At this time, it appears that her shock has nearly resolved and she is more responsive to commands, albeit not at baseline. With respect to the vent, she is on minimal support. If she were to tolerate weaning, there is reasonable chance that she may do well in the short-term on extubated. With that said, the family needs to be prepared in case she decompensates post-extubation (immediate or days/weeks later) and be able to transition to comfort measures. 2. Will hold TFs after midnight 3. CPAP/PS in am 4. Continue abx 5. Wean off levophed as tolerated. 40 min cc time LISA MELENDEZ MD Oct 07, 2018 12:06
--- NOTE | 2018-10-07 13:11 | CONS ---
Date/Time of Note Date/Time of Note DATE: 10/07/18 TIME: 13:10 Assessment/Plan Assessment/Plan Hospital Course No acute events overnight patient is on Levophed drip intubated in no distress she is afebrile WBC today 27.4 H&H 7.1 and 24.3 platelets 244 neutrophils 63 bands 29 Microbiology: Blood culture growing gram-positive cocci and gram-negative rods, urine culture grew Germania albicans. Chest x-ray this morning revealed interval development of moderate vascular congestion Antimicrobials: Fluconazole, meropenem, Zyvox Indwelling: Endotracheal tube NG tube Teixeira catheter, right IJ permacath, left IJ triple-lumen catheter. Chest x-ray revealed increased right greater than left basilar infiltrates concerning for multifocal pneumonia Physical examination: This is a chronically ill-appearing wasted elderly woman who is intubated in no distress. Head atraumatic normocephalic. Neck is supple. Chest rise symmetrical, breath sounds diminished bases. Heart: S1-S2. Abdomen soft bowel sounds hypoactive. Extremities cyanotic mottled Assessment: 1. Severe sepsis with shock 2. Polymicrobial bacteremia, rule out line sepsis 3. Germania albicans UTI 4. Bilateral healthcare associated pneumonia, possibly aspirated 5. Unstageable sacral decub 6. End-stage renal disease, hemodialysis dependent 7. Diabetes 8. History of right patellar fracture complicated by MRSA infected hardware, removed in May [address] Hedrick Plan: Remains hemodynamically unstable, on appropriate antibiotics, will repeat blood cultures with next hemodialysis and await for final cultures Result Diagram: 10/07/18 0424 10/07/18 0424 Results 24hrs Laboratory Tests Test 10/06/18 14:07 10/06/18 14:52 10/06/18 16:26 10/06/18 20:53 Bedside Glucose 97 74 78 147 Test 10/07/18 04:24 White Blood Count 27.4 H Red Blood Count 2.47 L Hemoglobin 7.1 L Hematocrit 24.3 L Mean Corpuscular Volume 98.4 Mean Corpuscular 28.7 L Hemoglobin Mean Corpuscular 29.2 L Hemoglobin Concent Red Cell Distribution 23.1 H Width Platelet Count 244 Mean Platelet Volume 9.6 Immature Granulocytes % 1.500 H Neutrophils % Segmented Neutrophils 63 % (Manual) Band Neutrophils % 29 H (Manual) Lymphocytes % Lymphocytes % (Manual) 7 L Monocytes % Monocytes % (Manual) 1 Eosinophils % Basophils % Nucleated Red Blood 0.3 H Cells % Immature Granulocytes # 0.420 H Neutrophils # Neutrophils # (Manual) 19.4 H Band Neutrophils # 7.9 H Lymphocytes (Manual) 1.9 Lymphocytes # Monocytes # Monocytes # (Manual) 0.2 L Eosinophils # Basophils # Nucleated Red Blood Cells # Platelet Estimate NORMAL Polychromasia 3+ Poikilocytosis 2+ Anisocytosis 3+ Macrocytosis 3+ Sodium Level 136 Potassium Level 4.1 Chloride Level 102 Carbon Dioxide Level 28 Anion Gap 6 Blood Urea Nitrogen 29 H Creatinine 2.35 H Est Glomerular Filtrat Rate mL/min Glucose Level 130 Calcium Level 6.9 L Phosphorus Level 3.8 # Magnesium Level 1.8 Consultation Date/Type/Reason Admit Date/Time Oct 05, 2018 at 07:51 Initial Consult Date 10/05/18 Type of Consult id Requesting Provider: YOEL DAVILA Exam/Review of Systems Vital Signs Vitals Vital Signs Date Temp Pulse Resp B/P (MAP) Pulse Ox O2 O2 Flow FiO2 Time Delivery Rate 10/07/18 77 08:00 10/07/18 16 107/46 100 07:30 (66) 10/07/18 Mechanical 07:00 Ventilator 10/07/18 30 05:22 10/07/18 97.5 04:00 Intake and Output 10/06/18 10/06/18 10/07/18 1515:00 23:00 07:00 IntakeIntake Total 935.89 ml 896.025 ml 535.345 ml OutputOutput Total 10 ml 51 ml BalanceBalance 925.89 ml 845.025 ml 535.345 ml Medications Medications Current Medications Propofol 100 ml @ 1.8 mls/hr ONCE STAT IV Last administered on 10/05/18at 08:04; Admin Dose 1.8 MLS/HR; Start 10/05/18 at 07:30; Stop 10/07/18 at 15:03 Sodium Chloride 1,000 ml @ 50 mls/hr Q20H IV Last administered on 10/07/18at 09:41; Admin Dose 50 MLS/HR; Start 10/05/18 at 08:53 Ondansetron HCl (Zofran Inj) 4 mg Q6H PRN IV NAUSEA AND/OR VOMITING; Start 10/05/18 at 09:00 Acetaminophen (Tylenol Liquid) 650 mg Q6H PRN PO PAIN LEVEL 1-3 OR FEVER; Start 10/05/18 at 09:00 Docusate Sodium (Colace) 100 mg Q12H PRN PO CONSTIPATION; Start 10/05/18 at 09:00 Aspirin (Aspirin) 81 mg DAILY PO Last administered on 10/07/18 09:54; Admin Dose 81 MG; Start 10/06/18 at 09:00 Atorvastatin Calcium (Lipitor) 80 mg QHS PO Last administered on 10/06/18 20:54; Admin Dose 80 MG; Start 10/05/18 at 21:00 Cholecalciferol (Vitamin D) 2,000 unit DAILY PO Last administered on 10/07/18 09:54; Admin Dose 2,000 UNIT; Start 10/06/18 at 09:00 Clopidogrel Bisulfate (plaVIX) 75 mg DAILY PO Last administered on 10/07/18 09:54; Admin Dose 75 MG; Start 10/06/18 at 09:00 Ferrous Sulfate (Ferrous Sulfate (Ec)) 325 mg BID PO Last administered on 10/06/18 20:55; Admin Dose 325 MG; Start 10/05/18 at 21:00 Folic Acid (Folic Acid) 1 mg DAILY PO Last administered on 10/07/18 09:54; Admin Dose 1 MG; Start 10/06/18 at 09:00 Levothyroxine Sodium (Synthroid) 50 mcg BEFORE BREAKFAST PO Last administered on 10/07/18 06:01; Admin Dose 50 MCG; Start 10/06/18 at 07:00 Multivit/Ca Carb/ B Cmplx/FA/Prenat (Lizzy-Juanpablo) 1 tab DAILY PO Last administere d on 10/07/18 09:54; Admin Dose 1 TAB; Start 10/06/18 at 09:00 Polyethylene Glycol (Miralax) 17 gm DAILY PO Last administered on 10/07/18 09:54; Admin Dose 17 GM; Start 10/06/18 at 09:00 Vitamin B Complex/ Vitamin C (Berocca) 1 cap DAILY PO Last administered on 10/07/18 09:54; Admin Dose 1 CAP; Start 10/06/18 at 09:00 Zinc Sulfate (Zinc Sulfate) 220 mg DAILY PO Last administered on 10/07/18 09:54; Admin Dose 220 MG; Start 10/06/18 at 09:00 Eye Lubricant (Artificial Tears Oph) 1 drop TID BOTH EYES Last administered on 10/07/18 13:09; Admin Dose 1 DROP; Start 10/05/18 at 14:00 Linezolid 300 ml @ 300 mls/hr Q12 IVPB Last administered on 10/07/18 09:54; Admin Dose 300 MLS/HR; Start 10/05/18 at 12:30 Miscellaneous Information (Pending Santyl Order For Wound Care) This patient sams... PRN PRN XX SLOUGH/SOILED; Start 10/05/18 at 13:00 Collagenase (Santyl) 1 applic Q12 TOP Last administered on 10/07/18 09:55; Admin Dose 1 APPLIC; Start 10/05/18 at 14:00 Collagenase (Santyl) 1 applic PRN PRN TOP PRN; Start 10/05/18 at 15:39 Norepinephrine 250 ml @ 1.875 mls/ hr TITRATE IV Last administered on 10/07/18 04:17; Admin Dose 5.625 MLS/HR; Start 10/05/18 at 23:00 Meropenem/Sodium Chloride 50 ml @ 100 mls/hr Q24H IVPB Last administered on 10/06/18 20:54; Admin Dose 100 MLS/HR; Start 10/06/18 at 21:00 Sodium Phosphate (Neutra-Phos) 500 mg BID GTB Last administered on 10/07/18 09:54; Admin Dose 500 MG; Start 10/06/18 at 10:30 Calcium/Vitamin D (Oyster Shell/ Vit-D (500/200)) 1 tab Q24H PO Last administered on 10/06/18 17:07; Admin Dose 1 TAB; Start 10/06/18 at 17:00 Morphine Sulfate (morphine) 6 mg Q4H PRN GTB SEVERE PAIN LEVEL 7-10; Start 10/06/18 at 11:00 Lansoprazole (Prevacid) 30 mg DAILY@06 GTB Last administered on 10/07/18 05:49; Admin Dose 30 MG; Start 10/07/18 at 06:00 Fluconazole/ Sodium Chloride 50 ml @ 50 mls/hr Q24H IVPB Last administered on 10/06/18 14:11; Admin Dose 50 MLS/HR; Start 10/06/18 at 14:00 Miscellaneous Information 1 ea NOTE XX ; Start 10/06/18 at 15:30 Glucose (Glutose) 15 gm Q15M PRN PO DECREASED GLUCOSE; Start 10/06/18 at 15:30 Glucose (Glutose) 22.5 gm Q15M PRN PO DECREASED GLUCOSE; Start 10/06/18 at 15:30 Dextrose (D50w Syringe) 25 ml Q15M PRN IV DECREASED GLUCOSE; Start 10/06/18 at 15:30 Dextrose (D50w Syringe) 50 ml Q15M PRN IV DECREASED GLUCOSE; Start 10/06/18 at 15:30 Glucagon (Glucagen) 1 mg Q15M PRN IM DECREASED GLUCOSE; Start 10/06/18 at 15:30 Glucose (Glutose) 15 gm Q15M PRN BUCCAL DECREASED GLUCOSE; Start 10/06/18 at 15:30 Insulin Glargine (Lantus) 9 units QHS SC ; Start 10/07/18 at 21:00 Propofol 100 ml @ 1.818 mls/ hr Q12H IV Last administered on 10/06/18at 21:36; Admin Dose 2.545 MLS/HR; Start 10/06/18 at 21:30 CARINE GOMEZ NP Oct 07, 2018 13:11
[2018-10-07] MEDS: BALSAM PERU/CASTOR OIL 60 GM TUBE TOP SCH ×2 (14:00→21:52)
[2018-10-07] MEDS ORDERED: ALTEPLASE (CATHFLO) 2 MG INJ CATHETER ONE (16:00)
[2018-10-07] MEDS: FLUCONAZOLE 100 MG/50 ML (PMX) 50 ML IVPB SCH (16:02)
[2018-10-07] MEDS: CALCIUM/VITAMIN D (500/200) TAB PO SCH (17:29)
[2018-10-07] MEDS: INSULIN GLARGINE [LANTus] (100 UNITS/ML) SYG SC SCH (21:00)
[2018-10-07] MEDS: MEROPENEM 500MG/50 ML (PMX) 50 ML IVPB SCH (21:52)
[2018-10-07] MEDS: ATORVASTATIN 80 MG TAB PO SCH (21:53)
[2018-10-08] VITALS (97 sets, daily range): BP systolic 91–199; BP diastolic 40–129; PULSE 72–108; RESP 15–28
[2018-10-08] MEDS: LANSOPRAZOLE 30 MG CAP GTB SCH (05:26)
[2018-10-08] MEDS: SOD CHLORIDE 0.9% 1,000 ML IV SCH ×2 (06:23→19:55)
[2018-10-08] MEDS ORDERED: SOD CHLORIDE 0.9% 250 ML IV* ONE (07:16)
[2018-10-08] MEDS: ZINC SULFATE 220 MG CAP PO SCH (08:50)
[2018-10-08] MEDS: FERROUS SULFATE (EC) 325 MG TAB PO SCH ×2 (08:50→21:09)
[2018-10-08] MEDS: CHOLECALCIFEROL 1,000 UNIT TAB PO SCH (08:50)
[2018-10-08] MEDS: FOLIC ACID 1 MG TAB PO SCH (08:50)
[2018-10-08] MEDS: LEVOTHYROXINE 50 MCG TAB PO SCH (08:51)
[2018-10-08] MEDS: VITAMIN B COMPLEX/VIT C CAP PO SCH (08:51)
[2018-10-08] MEDS: ASPIRIN 81 MG TAB PO SCH (08:51)
[2018-10-08] MEDS: MULTIVIT/CA CARB/B CMPLX/FA TAB PO SCH (08:51)
[2018-10-08] MEDS: NEUTRA-PHOS 250 MG PACKET GTB SCH ×2 (08:51→21:09)
[2018-10-08] MEDS: POLYETHYLENE GLYCOL 17 GM PACKET PO SCH (08:51)
[2018-10-08] MEDS: CLOPIDOGREL 75 MG TAB PO SCH (08:51)
[2018-10-08] MEDS: LINEZOLID 600 MG/D5W (PMX) 300 ML IVPB SCH ×2 (08:52→21:08)
[2018-10-08] MEDS: PROPOFOL 100 ML IV SCH ×2 (08:52→21:30)
[2018-10-08] MEDS: COLLAGENASE 5 GM (UD JAR) TOP SCH ×2 (08:56→21:08)
[2018-10-08] MEDS: ARTIFICIAL TEARS 15 ML OPH BOTH EYES SCH ×3 (08:57→21:10)
[2018-10-08] MEDS: BALSAM PERU/CASTOR OIL 60 GM TUBE TOP SCH ×2 (08:57→21:09)
--- NOTE | 2018-10-08 10:43 | CONS ---
Date/Time of Note Date/Time of Note DATE: 10/08/18 TIME: 10:40 Consult Date/Type/Reason Admit Date/Time Oct 05, 2018 at 07:51 Initial Consult Date 10/05/18 Type of Consultation: Pulm/CCM Requesting Provider: YOEL DAVILA Subjective Did not tolerate weaning this am. Hgb drop 6.9 noted. Objective Vital Signs Date Temp Pulse Resp B/P (MAP) Pulse Ox O2 O2 Flow FiO2 Time Delivery Rate 10/08/18 94 129/53 Mechanical 09:00 (78) Ventilator 10/08/18 27 95 08:45 10/08/18 98.3 07:00 10/08/18 30 05:29 Intake and Output 10/07/18 10/07/18 10/08/18 1515:00 23:00 07:00 IntakeIntake Total 923.110 ml 891.975 ml 479.113 ml BalanceBalance 923.110 ml 891.975 ml 479.113 ml Exam HEENT: Neck supple; no JVD; no LAD; + ET tube CVS: RRR, S1 and S2 CHEST: Coarse BS b/l ABD: Soft, NT, + BS EXT: No c/c: + edema NEURO: Minimally responsive; leftward gaze Results/Medications Result Diagram: 10/08/18 0400 10/08/18 0400 Results 24 hrs Laboratory Tests Test 10/07/18 21:58 10/07/18 22:38 10/07/18 23:34 10/08/18 01:09 Bedside Glucose 68 L 144 107 134 Test 10/08/18 04:00 White Blood Count 25.2 H Red Blood Count 2.44 L Hemoglobin 6.9 *L Hematocrit 23.8 L Mean Corpuscular Volume 97.5 Mean Corpuscular 28.3 L Hemoglobin Mean Corpuscular 29.0 L Hemoglobin Concent Red Cell Distribution 22.7 H Width Platelet Count 207 Mean Platelet Volume 9.5 Immature Granulocytes % 0.800 H Neutrophils % Segmented Neutrophils 87 H % (Manual) Band Neutrophils % 8 H (Manual) Lymphocytes % Lymphocytes % (Manual) 4 L Monocytes % Monocytes % (Manual) 1 Eosinophils % Basophils % Nucleated Red Blood 0.2 H Cells % Immature Granulocytes # 0.210 H Neutrophils # Neutrophils # (Manual) 22.4 H Band Neutrophils # 2.0 H Lymphocytes (Manual) 1.0 Lymphocytes # Monocytes # Monocytes # (Manual) 0.2 L Eosinophils # Basophils # Nucleated Red Blood Cells # Platelet Estimate NORMAL Polychromasia 3+ Hypochromasia 2+ Poikilocytosis 1+ Anisocytosis 2+ Macrocytosis 2+ Ovalocytes 1+ Sodium Level 134 L Potassium Level 4.1 Chloride Level 100 Carbon Dioxide Level 22 Anion Gap 12 Blood Urea Nitrogen 35 H Creatinine 2.41 H Est Glomerular Filtrat Rate mL/min Glucose Level 90 # Calcium Level 6.2 L Medications Current Medications Sodium Chloride 1,000 ml @ 50 mls/hr Q20H IV Last administered on 10/08/18 06:23; Admin Dose 50 MLS/HR; Start 10/05/18 at 08:53 Ondansetron HCl (Zofran Inj) 4 mg Q6H PRN IV NAUSEA AND/OR VOMITING; Start 10/05/18 at 09:00 Acetaminophen (Tylenol Liquid) 650 mg Q6H PRN PO PAIN LEVEL 1-3 OR FEVER; Start 10/05/18 at 09:00 Docusate Sodium (Colace) 100 mg Q12H PRN PO CONSTIPATION; Start 10/05/18 at 09:00 Aspirin (Aspirin) 81 mg DAILY PO Last administered on 10/08/18 08:51; Admin Dose 81 MG; Start 10/06/18 at 09:00 Atorvastatin Calcium (Lipitor) 80 mg QHS PO Last administered on 10/07/18 21:53; Admin Dose 80 MG; Start 10/05/18 at 21:00 Cholecalciferol (Vitamin D) 2,000 unit DAILY PO Last administered on 10/08/18 08:50; Admin Dose 2,000 UNIT; Start 10/06/18 at 09:00 Clopidogrel Bisulfate (plaVIX) 75 mg DAILY PO Last administered on 10/08/18 08:51; Admin Dose 75 MG; Start 10/06/18 at 09:00 Ferrous Sulfate (Ferrous Sulfate (Ec)) 325 mg BID PO Last administered on 10/08/18 08:50; Admin Dose 325 MG; Start 10/05/18 at 21:00 Folic Acid (Folic Acid) 1 mg DAILY PO Last administered on 10/08/18 08:50; Admin Dose 1 MG; Start 10/06/18 at 09:00 Levothyroxine Sodium (Synthroid) 50 mcg BEFORE BREAKFAST PO Last administered on 10/08/18 08:51; Admin Dose 50 MCG; Start 10/06/18 at 07:00 Multivit/Ca Carb/ B Cmplx/FA/Prenat (Lizzy-Juanpablo) 1 tab DAILY PO Last administered on 10/08/18 08:51; Admin Dose 1 TAB; Start 10/06/18 at 09:00 Polyethylene Glycol (Miralax) 17 gm DAILY PO Last administered on 10/08/18 08:51; Admin Dose 17 GM; Start 10/06/18 at 09:00 Vitamin B Complex/ Vitamin C (Berocca) 1 cap DAILY PO Last administered on 10/08/18 08:51; Admin Dose 1 CAP; Start 10/06/18 at 09:00 Zinc Sulfate (Zinc Sulfate) 220 mg DAILY PO Last administered on 10/08/18 08:50; Admin Dose 220 MG; Start 10/06/18 at 09:00 Eye Lubricant (Artificial Tears Oph) 1 drop TID BOTH EYES Last administered on 10/08/18 08:57; Admin Dose 1 DROP; Start 10/05/18 at 14:00 Linezolid 300 ml @ 300 mls/hr Q12 IVPB Last administered on 10/08/18 08:52; Admin Dose 300 MLS/HR; Start 10/05/18 at 12:30 Miscellaneous Information (Pending Santyl Order For Wound Care) This patient asms... PRN PRN XX SLOUGH/SOILED; Start 10/05/18 at 13:00 Collagenase (Santyl) 1 applic Q12 TOP Last administered on 10/08/18 08:56; Admin Dose 1 APPLIC; Start 10/05/18 at 14:00 Collagenase (Santyl) 1 applic PRN PRN TOP PRN; Start 10/05/18 at 15:39 Norepinephrine 250 ml @ 1.875 mls/ hr TITRATE IV Last administered on 10/07/18 17:29; Admin Dose 1.875 MLS/HR; Start 10/05/18 at 23:00 Meropenem/Sodium Chloride 50 ml @ 100 mls/hr Q24H IVPB Last administered on 10/07/18 21:52; Admin Dose 100 MLS/HR; Start 10/06/18 at 21:00 Sodium Phosphate (Neutra-Phos) 500 mg BID GTB Last administered on 10/08/18at 08:51; Admin Dose 500 MG; Start 10/06/18 at 10:30 Calcium/Vitamin D (Oyster Shell/ Vit-D (500/200)) 1 tab Q24H PO Last administered on 10/07/18at 17:29; Admin Dose 1 TAB; Start 10/06/18 at 17:00 Morphine Sulfate (morphine) 6 mg Q4H PRN GTB SEVERE PAIN LEVEL 7-10; Start 10/06/18 at 11:00 Lansoprazole (Prevacid) 30 mg DAILY@06 GTB Last administered on 10/08/18at 05:26; Admin Dose 30 MG; Start 10/07/18 at 06:00 Fluconazole/ Sodium Chloride 50 ml @ 50 mls/hr Q24H IVPB Last administered on 10/07/18at 16:02; Admin Dose 50 MLS/HR; Start 10/06/18 at 14:00 Miscellaneous Information 1 ea NOTE XX ; Start 10/06/18 at 15:30 Glucose (Glutose) 15 gm Q15M PRN PO DECREASED GLUCOSE; Start 10/06/18 at 15:30 Glucose (Glutose) 22.5 gm Q15M PRN PO DECREASED GLUCOSE; Start 10/06/18 at 15:30 Dextrose (D50w Syringe) 25 ml Q15M PRN IV DECREASED GLUCOSE Last administered on 10/07/18at 22:18; Admin Dose 25 ML; Start 10/06/18 at 15:30 Dextrose (D50w Syringe) 50 ml Q15M PRN IV DECREASED GLUCOSE; Start 10/06/18 at 15:30 Glucagon (Glucagen) 1 mg Q15M PRN IM DECREASED GLUCOSE; Start 10/06/18 at 15:30 Glucose (Glutose) 15 gm Q15M PRN BUCCAL DECREASED GLUCOSE; Start 10/06/18 at 15:30 Insulin Glargine (Lantus) 9 units QHS SC ; Start 10/07/18 at 21:00 Propofol 100 ml @ 1.818 mls/ hr Q12H IV Last administered on 10/06/18at 21:36; Admin Dose 2.545 MLS/HR; Start 10/06/18 at 21:30 Assessment/Plan Additional Assessment/Plan IMP: 1. Septic Shock--polymicrobial infection 2. Respiratory Failure/Vent Dependence 3. ESRD on HD 4. History of Anoxic Encephalopathy 5. Anemia RECS: 1. HD/UF today--> transfuse 2 units PRBC 2. Will hold TFs after midnight 3. CPAP/PS in am 4. Continue abx 5. Wean off levophed as tolerated 6. Palliative to follow 40 min cc time LISA MELENDEZ MD Oct 08, 2018 10:43
--- NOTE | 2018-10-08 14:31 | CONS ---
Date/Time of Note Date/Time of Note DATE: 10/08/18 TIME: 14:30 Assessment/Plan Assessment/Plan Hospital Course Patient is in hemodialysis, looks comfortable no fevers overnight family at bedside, she is on low-dose of Levophed drip WBC today 25.2 H&H 6.9 and 23.8 platelets 207 neutrophils 87 bands 8 Microbiology: Blood culture grew coag negative staph species and Proteus mirabilis susceptible only to gentamicin Zosyn and tobramycin. Sacral wound culture growing Klebsiella pneumoniae ESBL also susceptible to amikacin urine culture grew Germania albicans Antimicrobials: Fluconazole, meropenem, Zyvox Indwelling: Endotracheal tube NG tube Teixeira catheter, right IJ permacath, left IJ triple-lumen catheter. Physical examination: This is a chronically ill-appearing wasted elderly woman who is intubated in no distress. Head atraumatic normocephalic. Neck is supple. Chest rise symmetrical, breath sounds diminished bases. Heart: S1-S2. Abdomen soft bowel sounds hypoactive. Extremities cyanotic mottled Assessment: 1. Severe sepsis with shock 2. Polymicrobial bacteremia, rule out line sepsis 3. Germania albicans UTI 4. Bilateral healthcare associated pneumonia, possibly aspirated 5. Unstageable sacral decub 6. End-stage renal disease, hemodialysis dependent 7. Diabetes 8. History of right patellar fracture complicated by MRSA infected hardware, removed in May [address] Hedrick Plan: Remains hemodynamically unstable, were going to change meropenem to amikacin, follow repeat blood cultures, continue local wound care, vent management per pulmonary Result Diagram: 10/08/18 0400 10/08/18 0400 Results 24hrs Laboratory Tests Test 10/07/18 21:58 10/07/18 22:38 10/07/18 23:34 10/08/18 01:09 Bedside Glucose 68 L 144 107 134 Test 10/08/18 04:00 White Blood Count 25.2 H Red Blood Count 2.44 L Hemoglobin 6.9 *L Hematocrit 23.8 L Mean Corpuscular Volume 97.5 Mean Corpuscular 28.3 L Hemoglobin Mean Corpuscular 29.0 L Hemoglobin Concent Red Cell Distribution 22.7 H Width Platelet Count 207 Mean Platelet Volume 9.5 Immature Granulocytes % 0.800 H Neutrophils % Segmented Neutrophils 87 H % (Manual) Band Neutrophils % 8 H (Manual) Lymphocytes % Lymphocytes % (Manual) 4 L Monocytes % Monocytes % (Manual) 1 Eosinophils % Basophils % Nucleated Red Blood 0.2 H Cells % Immature Granulocytes # 0.210 H Neutrophils # Neutrophils # (Manual) 22.4 H Band Neutrophils # 2.0 H Lymphocytes (Manual) 1.0 Lymphocytes # Monocytes # Monocytes # (Manual) 0.2 L Eosinophils # Basophils # Nucleated Red Blood Cells # Platelet Estimate NORMAL Polychromasia 3+ Hypochromasia 2+ Poikilocytosis 1+ Anisocytosis 2+ Macrocytosis 2+ Ovalocytes 1+ Sodium Level 134 L Potassium Level 4.1 Chloride Level 100 Carbon Dioxide Level 22 Anion Gap 12 Blood Urea Nitrogen 35 H Creatinine 2.41 H Est Glomerular Filtrat Rate mL/min Glucose Level 90 # Calcium Level 6.2 L Consultation Date/Type/Reason Admit Date/Time Oct 05, 2018 at 07:51 Initial Consult Date 10/05/18 Type of Consult id Requesting Provider: YOEL DAVILA Exam/Review of Systems Vital Signs Vitals Vital Signs Date Temp Pulse Resp B/P (MAP) Pulse Ox O2 O2 Flow FiO2 Time Delivery Rate 10/08/18 87 19 137/54 100 Mechanical 14:00 (81) Ventilator 10/08/18 98.5 13:00 10/08/18 30 12:00 Intake and Output 10/07/18 10/07/18 10/08/18 1515:00 23:00 07:00 IntakeIntake Total 923.110 ml 891.975 ml 479.113 ml BalanceBalance 923.110 ml 891.975 ml 479.113 ml Medications Medications Current Medications Sodium Chloride 1,000 ml @ 50 mls/hr Q20H IV Last administered on 10/08/18at 06:23; Admin Dose 50 MLS/HR; Start 10/05/18 at 08:53 Ondansetron HCl (Zofran Inj) 4 mg Q6H PRN IV NAUSEA AND/OR VOMITING; Start 10/05/18 at 09:00 Acetaminophen (Tylenol Liquid) 650 mg Q6H PRN PO PAIN LEVEL 1-3 OR FEVER; Start 10/05/18 at 09:00 Docusate Sodium (Colace) 100 mg Q12H PRN PO CONSTIPATION; Start 10/05/18 at 09:00 Aspirin (Aspirin) 81 mg DAILY PO Last administered on 10/08/18 08:51; Admin Dose 81 MG; Start 10/06/18 at 09:00 Atorvastatin Calcium (Lipitor) 80 mg QHS PO Last administered on 10/07/18 21:53; Admin Dose 80 MG; Start 10/05/18 at 21:00 Cholecalciferol (Vitamin D) 2,000 unit DAILY PO Last administered on 10/08/18 08:50; Admin Dose 2,000 UNIT; Start 10/06/18 at 09:00 Clopidogrel Bisulfate (plaVIX) 75 mg DAILY PO Last administered on 10/08/18 08:51; Admin Dose 75 MG; Start 10/06/18 at 09:00 Ferrous Sulfate (Ferrous Sulfate (Ec)) 325 mg BID PO Last administered on 10/08/18 08:50; Admin Dose 325 MG; Start 10/05/18 at 21:00 Folic Acid (Folic Acid) 1 mg DAILY PO Last administered on 10/08/18 08:50; Admin Dose 1 MG; Start 10/06/18 at 09:00 Levothyroxine Sodium (Synthroid) 50 mcg BEFORE BREAKFAST PO Last administered on 10/08/18 08:51; Admin Dose 50 MCG; Start 10/06/18 at 07:00 Multivit/Ca Carb/ B Cmplx/FA/Prenat (Lizzy-Juanpablo) 1 tab DAILY PO Last administered on 10/08/18 08:51; Admin Dose 1 TAB; Start 10/06/18 at 09:00 Polyethylene Glycol (Miralax) 17 gm DAILY PO Last administered on 10/08/18 0 8:51; Admin Dose 17 GM; Start 10/06/18 at 09:00 Vitamin B Complex/ Vitamin C (Berocca) 1 cap DAILY PO Last administered on 10/08/18 08:51; Admin Dose 1 CAP; Start 10/06/18 at 09:00 Zinc Sulfate (Zinc Sulfate) 220 mg DAILY PO Last administered on 10/08/18 08:50; Admin Dose 220 MG; Start 10/06/18 at 09:00 Eye Lubricant (Artificial Tears Oph) 1 drop TID BOTH EYES Last administered on 10/08/18 08:57; Admin Dose 1 DROP; Start 10/05/18 at 14:00 Linezolid 300 ml @ 300 mls/hr Q12 IVPB Last administered on 10/08/18 08:52; Admin Dose 300 MLS/HR; Start 10/05/18 at 12:30 Miscellaneous Information (Pending Santyl Order For Wound Care) This patient sams... PRN PRN XX SLOUGH/SOILED; Start 10/05/18 at 13:00 Collagenase (Santyl) 1 applic Q12 TOP Last administered on 10/08/18 08:56; Admin Dose 1 APPLIC; Start 10/05/18 at 14:00 Collagenase (Santyl) 1 applic PRN PRN TOP PRN; Start 10/05/18 at 15:39 Norepinephrine 250 ml @ 1.875 mls/ hr TITRATE IV Last administered on 10/07/18 17:29; Admin Dose 1.875 MLS/HR; Start 10/05/18 at 23:00 Meropenem/Sodium Chloride 50 ml @ 100 mls/hr Q24H IVPB Last administered on 10/07/18 21:52; Admin Dose 100 MLS/HR; Start 10/06/18 at 21:00 Sodium Phosphate (Neutra-Phos) 500 mg BID GTB Last administered on 10/08/18 08:51; Admin Dose 500 MG; Start 10/06/18 at 10:30 Calcium/Vitamin D (Oyster Shell/ Vit-D (500/200)) 1 tab Q24H PO Last administered on 10/07/18 17:29; Admin Dose 1 TAB; Start 10/06/18 at 17:00 Morphine Sulfate (morphine) 6 mg Q4H PRN GTB SEVERE PAIN LEVEL 7-10; Start 10/06/18 at 11:00 Lansoprazole (Prevacid) 30 mg DAILY@06 GTB Last administered on 10/08/18 05:26; Admin Dose 30 MG; Start 10/07/18 at 06:00 Fluconazole/ Sodium Chloride 50 ml @ 50 mls/hr Q24H IVPB Last administered on 10/07/18 16:02; Admin Dose 50 MLS/HR; Start 10/06/18 at 14:00 Miscellaneous Information 1 ea NOTE XX ; Start 10/06/18 at 15:30 Glucose (Glutose) 15 gm Q15M PRN PO DECREASED GLUCOSE; Start 10/06/18 at 15:30 Glucose (Glutose) 22.5 gm Q15M PRN PO DECREASED GLUCOSE; Start 10/06/18 at 15:30 Dextrose (D50w Syringe) 25 ml Q15M PRN IV DECREASED GLUCOSE Last administered on 10/07/18at 22:18; Admin Dose 25 ML; Start 10/06/18 at 15:30 Dextrose (D50w Syringe) 50 ml Q15M PRN IV DECREASED GLUCOSE; Start 10/06/18 at 15:30 Glucagon (Glucagen) 1 mg Q15M PRN IM DECREASED GLUCOSE; Start 10/06/18 at 15:30 Glucose (Glutose) 15 gm Q15M PRN BUCCAL DECREASED GLUCOSE; Start 10/06/18 at 15:30 Insulin Glargine (Lantus) 9 units QHS SC ; Start 10/07/18 at 21:00 Propofol 100 ml @ 1.818 mls/ hr Q12H IV Last administered on 10/06/18at 21:36; Admin Dose 2.545 MLS/HR; Start 10/06/18 at 21:30 CARINE GOMEZ NP Oct 08, 2018 14:31
[2018-10-08] MEDS ORDERED: AMIKACIN IV PER PHARMACY XX SCH (15:00)
--- NOTE | 2018-10-08 16:24 | PN ---
Date/Time of Note Date/Time of Note DATE: 10/08/18 TIME: 16:08 Assessment/Plan VTE Prophylaxis Risk score (from [facility])>0 risk: 13 SCD applied (from [facility]): Yes Pharmacological prophylaxis: NA/contraindicated Pharm contraindication: renal impairment Assessment/Plan Hospital Course 78 yo female with h/o ESRD, PAD, DMII, very debilitated who presents with septic shock and multiorgan failure 1. Acute metabolic encephalopathy secondary to septic shock with multiorgan failure Continue IV antibiotics Continue to wean off pressors Mentation is improving 2. Acute respiratory failure Continue mechanical ventilation Pulmonary following, continue weaning trials 3. History of anoxic encephalopathy with functional quadriplegia Patient with poor baseline 4. End-stage renal disease Dialysis as tolerated 5. DMII Continue insulin 6. Anemia secondary to chronic disease Transfuse 2 units Prophylaxis: SCDs DC planning: Patient is DNR, palliative care is following, continue management Result Diagram: 10/08/18 0400 10/08/18 0400 Results 24hrs Laboratory Tests Test 10/07/18 21:58 10/07/18 22:38 10/07/18 23:34 10/08/18 01:09 Bedside Glucose 68 L 144 107 134 Test 10/08/18 04:00 White Blood Count 25.2 H Red Blood Count 2.44 L Hemoglobin 6.9 *L Hematocrit 23.8 L Mean Corpuscular Volume 97.5 Mean Corpuscular 28.3 L Hemoglobin Mean Corpuscular 29.0 L Hemoglobin Concent Red Cell Distribution 22.7 H Width Platelet Count 207 Mean Platelet Volume 9.5 Immature Granulocytes % 0.800 H Neutrophils % Segmented Neutrophils 87 H % (Manual) Band Neutrophils % 8 H (Manual) Lymphocytes % Lymphocytes % (Manual) 4 L Monocytes % Monocytes % (Manual) 1 Eosinophils % Basophils % Nucleated Red Blood 0.2 H Cells % Immature Granulocytes # 0.210 H Neutrophils # Neutrophils # (Manual) 22.4 H Band Neutrophils # 2.0 H Lymphocytes (Manual) 1.0 Lymphocytes # Monocytes # Monocytes # (Manual) 0.2 L Eosinophils # Basophils # Nucleated Red Blood Cells # Platelet Estimate NORMAL Polychromasia 3+ Hypochromasia 2+ Poikilocytosis 1+ Anisocytosis 2+ Macrocytosis 2+ Ovalocytes 1+ Sodium Level 134 L Potassium Level 4.1 Chloride Level 100 Carbon Dioxide Level 22 Anion Gap 12 Blood Urea Nitrogen 35 H Creatinine 2.41 H Est Glomerular Filtrat Rate mL/min Glucose Level 90 # Calcium Level 6.2 L Subjective 24 Hr Interval Summary Subjective hx not possible: pt non-verbal Exam/Review of Systems Vital Signs Vitals Vital Signs Date Temp Pulse Resp B/P (MAP) Pulse Ox O2 O2 Flow FiO2 Time Delivery Rate 10/08/18 87 19 137/54 100 Mechanical 14:00 (81) Ventilator 10/08/18 98.5 13:00 10/08/18 30 12:00 Intake and Output 10/07/18 10/07/18 10/08/18 1515:00 23:00 07:00 IntakeIntake Total 923.110 ml 891.975 ml 479.113 ml BalanceBalance 923.110 ml 891.975 ml 479.113 ml Exam Constitutional: non-verbal ENMT: intubated Respiratory: clear to auscultation Cardiovascular: regular rate and rhythm Gastrointestinal: soft; No distended Musculoskeletal: nl extremities to inspection Medications Medications Current Medications Sodium Chloride 1,000 ml @ 50 mls/hr Q20H IV Last administered on 10/08/18at 06:23; Admin Dose 50 MLS/HR; Start 10/05/18 at 08:53 Ondansetron HCl (Zofran Inj) 4 mg Q6H PRN IV NAUSEA AND/OR VOMITING; Start 10/05/18 at 09:00 Acetaminophen (Tylenol Liquid) 650 mg Q6H PRN PO PAIN LEVEL 1-3 OR FEVER; Start 10/05/18 at 09:00 Docusate Sodium (Colace) 100 mg Q12H PRN PO CONSTIPATION; Start 10/05/18 at 09:00 Aspirin (Aspirin) 81 mg DAILY PO Last administered on 10/08/18at 08:51; Admin Dose 81 MG; Start 10/06/18 at 09:00 Atorvastatin Calcium (Lipitor) 80 mg QHS PO Last administered on 10/07/18at 21:53; Admin Dose 80 MG; Start 10/05/18 at 21:00 Cholecalciferol (Vitamin D) 2,000 unit DAILY PO Last administered on 10/08/18at 08:50; Admin Dose 2,000 UNIT; Start 10/06/18 at 09:00 Clopidogrel Bisulfate (plaVIX) 75 mg DAILY PO Last administered on 1/6/19at 08:51; Admin Dose 75 MG; Start 10/06/18 at 09:00 Ferrous Sulfate (Ferrous Sulfate (Ec)) 325 mg BID PO Last administered on 08:50; Admin Dose 325 MG; Start 10/05/18 at 21:00 Folic Acid (Folic Acid) 1 mg DAILY PO Last administered on 10/08/18 08:50; Admin Dose 1 MG; Start 10/06/18 at 09:00 Levothyroxine Sodium (Synthroid) 50 mcg BEFORE BREAKFAST PO Last administered on 10/08/18 08:51; Admin Dose 50 MCG; Start 10/06/18 at 07:00 Multivit/Ca Carb/ B Cmplx/FA/Prenat (Lizzy-Juanpablo) 1 tab DAILY PO Last administered on 10/08/18 08:51; Admin Dose 1 TAB; Start 10/06/18 at 09:00 Polyethylene Glycol (Miralax) 17 gm DAILY PO Last administered on 10/08/18 08:51; Admin Dose 17 GM; Start 10/06/18 at 09:00 Vitamin B Complex/ Vitamin C (Berocca) 1 cap DAILY PO Last administered on 10/08/18 08:51; Admin Dose 1 CAP; Start 10/06/18 at 09:00 Zinc Sulfate (Zinc Sulfate) 220 mg DAILY PO Last administered on 10/08/18 08:50; Admin Dose 220 MG; Start 10/06/18 at 09:00 Eye Lubricant (Artificial Tears Oph) 1 drop TID BOTH EYES Last administered on 10/08/18 14:46; Admin Dose 1 DROP; Start 10/05/18 at 14:00 Linezolid 300 ml @ 300 mls/hr Q12 IVPB Last administered on 10/08/18 08:52; Admin Dose 300 MLS/HR; Start 10/05/18 at 12:30 Miscellaneous Information (Pending Santyl Order For Wound Care) This patient sams... PRN PRN XX SLOUGH/SOILED; Start 10/05/18 at 13:00 Collagenase (Santyl) 1 applic Q12 TOP Last administered on 10/08/18 08:56; Admin Dose 1 APPLIC; Start 10/05/18 at 14:00 Collagenase (Santyl) 1 applic PRN PRN TOP PRN; Start 10/05/18 at 15:39 Norepinephrine 250 ml @ 1.875 mls/ hr TITRATE IV Last administered on 10/07/18at 17:29; Admin Dose 1.875 MLS/HR; Start 10/05/18 at 23:00 Sodium Phosphate (Neutra-Phos) 500 mg BID GTB Last administered on 10/08/18at 08:51; Admin Dose 500 MG; Start 10/06/18 at 10:30 Calcium/Vitamin D (Oyster Shell/ Vit-D (500/200)) 1 tab Q24H PO Last administered on 10/07/18at 17:29; Admin Dose 1 TAB; Start 10/06/18 at 17:00 Morphine Sulfate (morphine) 6 mg Q4H PRN GTB SEVERE PAIN LEVEL 7-10; Start 10/06/18 at 11:00 Lansoprazole (Prevacid) 30 mg DAILY@06 GTB Last administered on 10/08/18at 05:26; Admin Dose 30 MG; Start 10/07/18 at 06:00 Fluconazole/ Sodium Chloride 50 ml @ 50 mls/hr Q24H IVPB Last administered on 10/07/18at 16:02; Admin Dose 50 MLS/HR; Start 10/06/18 at 14:00 Miscellaneous Information 1 ea NOTE XX ; Start 10/06/18 at 15:30 Glucose (Glutose) 15 gm Q15M PRN PO DECREASED GLUCOSE; Start 10/06/18 at 15:30 Glucose (Glutose) 22.5 gm Q15M PRN PO DECREASED GLUCOSE; Start 10/06/18 at 15:30 Dextrose (D50w Syringe) 25 ml Q15M PRN IV DECREASED GLUCOSE Last administered on 10/07/18at 22:18; Admin Dose 25 ML; Start 10/06/18 at 15:30 Dextrose (D50w Syringe) 50 ml Q15M PRN IV DECREASED GLUCOSE; Start 10/06/18 at 15:30 Glucagon (Glucagen) 1 mg Q15M PRN IM DECREASED GLUCOSE; Start 10/06/18 at 15:30 Glucose (Glutose) 15 gm Q15M PRN BUCCAL DECREASED GLUCOSE; Start 10/06/18 at 15:30 Insulin Glargine (Lantus) 9 units QHS SC ; Start 10/07/18 at 21:00 Propofol 100 ml @ 1.818 mls/ hr Q12H IV Last administered on 10/06/18at 21:36; Admin Dose 2.545 MLS/HR; Start 10/06/18 at 21:30 Amikacin Sulfate (Amikacin Iv Per Pharmacy) AMIKACIN PER PHARMACY NOTE XX ; Start 10/08/18 at 15:00 ESTEFANI MODI Oct 08, 2018 16:22
[2018-10-08] MEDS: FLUCONAZOLE 100 MG/50 ML (PMX) 50 ML IVPB SCH (16:41)
[2018-10-08] MEDS: CALCIUM/VITAMIN D (500/200) TAB PO SCH (17:58)
--- NOTE | 2018-10-08 18:46 | CONS ---
Date/Time of Note Date/Time of Note DATE: 10/08/18 TIME: 18:43 Assessment/Plan Assessment/Plan Assessment/Plan 78 yo Female with 1) Hypoxia with Respiratory Failure 2) Severe Sepsis 3) S/p Cardiac Arrest with ROSC 4) ESRD on HD 5) Anemia, Chronic CKD 6) Hypophosphatemia 7) Left Gaze ? Off pressors Pt with Left gaze (fixed) New finding I believe, I requested CT head CT Head Sep 2018 reviewed. S/p HD today CXR reviewed Pt code status DNR, Cont HD treatment. Thank you for the opportunity to participate in the care of Ms Coffman Discussed with LUBRICATION WORKER. CC time spent >30 min. Result Diagram: 10/08/18 0400 10/08/18 0400 Results 24hrs Laboratory Tests Test 10/07/18 21:58 10/07/18 22:38 10/07/18 23:34 10/08/18 01:09 Bedside Glucose 68 L 144 107 134 Test 10/08/18 04:00 White Blood Count 25.2 H Red Blood Count 2.44 L Hemoglobin 6.9 *L Hematocrit 23.8 L Mean Corpuscular Volume 97.5 Mean Corpuscular 28.3 L Hemoglobin Mean Corpuscular 29.0 L Hemoglobin Concent Red Cell Distribution 22.7 H Width Platelet Count 207 Mean Platelet Volume 9.5 Immature Granulocytes % 0.800 H Neutrophils % Segmented Neutrophils 87 H % (Manual) Band Neutrophils % 8 H (Manual) Lymphocytes % Lymphocytes % (Manual) 4 L Monocytes % Monocytes % (Manual) 1 Eosinophils % Basophils % Nucleated Red Blood 0.2 H Cells % Immature Granulocytes # 0.210 H Neutrophils # Neutrophils # (Manual) 22.4 H Band Neutrophils # 2.0 H Lymphocytes (Manual) 1.0 Lymphocytes # Monocytes # Monocytes # (Manual) 0.2 L Eosinophils # Basophils # Nucleated Red Blood Cells # Platelet Estimate NORMAL Polychromasia 3+ Hypochromasia 2+ Poikilocytosis 1+ Anisocytosis 2+ Macrocytosis 2+ Ovalocytes 1+ Sodium Level 134 L Potassium Level 4.1 Chloride Level 100 Carbon Dioxide Level 22 Anion Gap 12 Blood Urea Nitrogen 35 H Creatinine 2.41 H Est Glomerular Filtrat Rate mL/min Glucose Level 90 # Calcium Level 6.2 L Consultation Date/Type/Reason Admit Date/Time Oct 05, 2018 at 07:51 Initial Consult Date 10/05/18 Type of Consult Nephrology Requesting Provider: YOEL DAVILA 24 HR Interval Summary Free Text/Dictation Awake, Remains, Off pressors. Received PRBC and had HD with 1.3L removed Subjective hx not possible: pt critical status Constitutional: requiring O2 Exam/Review of Systems Vital Signs Vitals Vital Signs Date Temp Pulse Resp B/P (MAP) Pulse Ox O2 O2 Flow FiO2 Time Delivery Rate 10/08/18 87 19 99 30 17:50 10/08/18 120/53 17:45 (75) 10/08/18 Mechanical 17:30 Ventilator 10/08/18 98.6 16:30 Intake and Output 10/07/18 10/07/18 10/08/18 1515:00 23:00 07:00 IntakeIntake Total 923.110 ml 891.975 ml 489.113 ml BalanceBalance 923.110 ml 891.975 ml 489.113 ml Exam ENMT: intubated Neck: No jvd Respiratory: No diminished breath sounds, No labored breathing Cardiovascular: regular rate and rhythm; No edema Gastrointestinal: soft; No distended Extremities: No edema Neurological: other (Left gaze ) Skin: No rash or lesions, No diaphoresis Medications Medications Current Medications Sodium Chloride 1,000 ml @ 50 mls/hr Q20H IV Last administered on 10/08/18at 06:23; Admin Dose 50 MLS/HR; Start 10/05/18 at 08:53 Ondansetron HCl (Zofran Inj) 4 mg Q6H PRN IV NAUSEA AND/OR VOMITING; Start 10/05/18 at 09:00 Acetaminophen (Tylenol Liquid) 650 mg Q6H PRN PO PAIN LEVEL 1-3 OR FEVER; Start 10/05/18 at 09:00 Docusate Sodium (Colace) 100 mg Q12H PRN PO CONSTIPATION; Start 10/05/18 at 09:00 Aspirin (Aspirin) 81 mg DAILY PO Last administered on 10/08/18at 08:51; Admin Dose 81 MG; Start 10/06/18 at 09:00 Atorvastatin Calcium (Lipitor) 80 mg QHS PO Last administered on 10/07/18at 21:53; Admin Dose 80 MG; Start 10/05/18 at 21:00 Cholecalciferol (Vitamin D) 2,000 unit DAILY PO Last administered on 10/08/18 08:50; Admin Dose 2,000 UNIT; Start 10/06/18 at 09:00 Clopidogrel Bisulfate (plaVIX) 75 mg DAILY PO Last administered on 10/08/18 08:51; Admin Dose 75 MG; Start 10/06/18 at 09:00 Ferrous Sulfate (Ferrous Sulfate (Ec)) 325 mg BID PO Last administered on 10/08/18 08:50; Admin Dose 325 MG; Start 10/05/18 at 21:00 Folic Acid (Folic Acid) 1 mg DAILY PO Last administered on 10/08/18 08:50; Admin Dose 1 MG; Start 10/06/18 at 09:00 Levothyroxine Sodium (Synthroid) 50 mcg BEFORE BREAKFAST PO Last administered on 10/08/18 08:51; Admin Dose 50 MCG; Start 10/06/18 at 07:00 Multivit/Ca Carb/ B Cmplx/FA/Prenat (Lizzy-Juanpablo) 1 tab DAILY PO Last administered on 10/08/18 08:51; Admin Dose 1 TAB; Start 10/06/18 at 09:00 Polyethylene Glycol (Miralax) 17 gm DAILY PO Last administered on 10/08/18 08:51; Admin Dose 17 GM; Start 10/06/18 at 09:00 Vitamin B Complex/ Vitamin C (Berocca) 1 cap DAILY PO Last administered on 10/08/18 08:51; Admin Dose 1 CAP; Start 10/06/18 at 09:00 Zinc Sulfate (Zinc Sulfate) 220 mg DAILY PO Last administered on 10/08/18 08:50; Admin Dose 220 MG; Start 10/06/18 at 09:00 Eye Lubricant (Artificial Tears Oph) 1 drop TID BOTH EYES Last administered on 10/08/18 14:46; Admin Dose 1 DROP; Start 10/05/18 at 14:00 Linezolid 300 ml @ 300 mls/hr Q12 IVPB Last administered on 10/08/18 08:52; Admin Dose 300 MLS/HR; Start 10/05/18 at 12:30 Miscellaneous Information (Pending Santyl Order For Wound Care) This patient sams... PRN PRN XX SLOUGH/SOILED; Start 10/05/18 at 13:00 Collagenase (Santyl) 1 applic Q12 TOP Last administered on 10/08/18at 08:56; Admin Dose 1 APPLIC; Start 10/05/18 at 14:00 Collagenase (Santyl) 1 applic PRN PRN TOP PRN; Start 10/05/18 at 15:39 Norepinephrine 250 ml @ 1.875 mls/ hr TITRATE IV Last administered on 10/07/18at 17:29; Admin Dose 1.875 MLS/HR; Start 10/05/18 at 23:00 Sodium Phosphate (Neutra-Phos) 500 mg BID GTB Last administered on 10/08/18at 08 :51; Admin Dose 500 MG; Start 10/06/18 at 10:30 Calcium/Vitamin D (Oyster Shell/ Vit-D (500/200)) 1 tab Q24H PO Last administered on 10/08/18at 17:58; Admin Dose 1 TAB; Start 10/06/18 at 17:00 Morphine Sulfate (morphine) 6 mg Q4H PRN GTB SEVERE PAIN LEVEL 7-10; Start 10/06/18 at 11:00 Lansoprazole (Prevacid) 30 mg DAILY@06 GTB Last administered on 10/08/18at 05:26; Admin Dose 30 MG; Start 10/07/18 at 06:00 Fluconazole/ Sodium Chloride 50 ml @ 50 mls/hr Q24H IVPB Last administered on 10/08/18at 16:41; Admin Dose 50 MLS/HR; Start 10/06/18 at 14:00 Miscellaneous Information 1 ea NOTE XX ; Start 10/06/18 at 15:30 Glucose (Glutose) 15 gm Q15M PRN PO DECREASED GLUCOSE; Start 10/06/18 at 15:30 Glucose (Glutose) 22.5 gm Q15M PRN PO DECREASED GLUCOSE; Start 10/06/18 at 15:30 Dextrose (D50w Syringe) 25 ml Q15M PRN IV DECREASED GLUCOSE Last administered on 10/07/18at 22:18; Admin Dose 25 ML; Start 10/06/18 at 15:30 Dextrose (D50w Syringe) 50 ml Q15M PRN IV DECREASED GLUCOSE; Start 10/06/18 at 15:30 Glucagon (Glucagen) 1 mg Q15M PRN IM DECREASED GLUCOSE; Start 10/06/18 at 15:30 Glucose (Glutose) 15 gm Q15M PRN BUCCAL DECREASED GLUCOSE; Start 10/06/18 at 15:30 Insulin Glargine (Lantus) 9 units QHS SC ; Start 10/07/18 at 21:00 Propofol 100 ml @ 1.818 mls/ hr Q12H IV Last administered on 10/06/18at 21:36; Admin Dose 2.545 MLS/HR; Start 10/06/18 at 21:30 Amikacin Sulfate (Amikacin Iv Per Pharmacy) AMIKACIN PER PHARMACY NOTE XX ; Start 10/08/18 at 15:00 Amikacin Sulfate 340 mg/Sodium Chloride 101.36 ml @ 102 mls/ hr ONCE IVPB ; Start 10/08/18 at 20:00; Stop 10/08/18 at 21:00 Amikacin Sulfate 230 mg/Sodium Chloride 100.92 ml @ 102 mls/ hr AFTER DIALYSIS IVPB ; Start 10/09/18 at 18:00 Imaging Imaging IMPRESSION: Similar appearance of bibasilar infiltrates. RPTAT: AADD .Yousif Hooks MD, MD Date Time Electronically viewed and signed by .Yousif Hooks MD, MD on 10/08/2018 09:22 KATHIA SULLIVAN MD Oct 08, 2018 18:46
[2018-10-08] MEDS ORDERED: AMIKACIN IVPB SCH (20:00)
[2018-10-08] MEDS ORDERED: SOD CHLORIDE 0.9% IVPB SCH (20:00)
[2018-10-08] MEDS: ATORVASTATIN 80 MG TAB PO SCH (21:08)
[2018-10-08] MEDS: INSULIN GLARGINE [LANTus] (100 UNITS/ML) SYG SC SCH (21:30)
[2018-10-09] VITALS (100 sets, daily range): BP systolic 71–195; BP diastolic 40–84; PULSE 68–101; RESP 11–32
[2018-10-09] MEDS: NORepinephrine 8MG/250 ML (PMX 250 ML IV SCH (00:37)
[2018-10-09] MEDS: DEXTROSE 50% 50 ML SYRINGE IV PRN ×2 (05:49→12:06)
[2018-10-09] MEDS: LANSOPRAZOLE 30 MG CAP GTB SCH (05:52)
[2018-10-09] MEDS ORDERED: DEXTROSE 5%-0.9% NACL 1,000 ML IV SCH ×2 (06:30→21:30)
[2018-10-09] MEDS: COLLAGENASE 5 GM (UD JAR) TOP SCH ×2 (08:34→20:36)
[2018-10-09] MEDS: MULTIVIT/CA CARB/B CMPLX/FA TAB PO SCH (08:35)
[2018-10-09] MEDS: CLOPIDOGREL 75 MG TAB PO SCH (08:35)
[2018-10-09] MEDS: CHOLECALCIFEROL 1,000 UNIT TAB PO SCH (08:35)
[2018-10-09] MEDS: NEUTRA-PHOS 250 MG PACKET GTB SCH ×2 (08:35→20:36)
[2018-10-09] MEDS: FOLIC ACID 1 MG TAB PO SCH (08:35)
[2018-10-09] MEDS: POLYETHYLENE GLYCOL 17 GM PACKET PO SCH (08:36)
[2018-10-09] MEDS: ZINC SULFATE 220 MG CAP PO SCH (08:36)
[2018-10-09] MEDS: ASPIRIN 81 MG TAB PO SCH (08:36)
[2018-10-09] MEDS: LINEZOLID 600 MG/D5W (PMX) 300 ML IVPB SCH ×2 (08:36→20:36)
[2018-10-09] MEDS: ARTIFICIAL TEARS 15 ML OPH BOTH EYES SCH ×3 (08:36→20:36)
[2018-10-09] MEDS: VITAMIN B COMPLEX/VIT C CAP PO SCH (08:36)
[2018-10-09] MEDS: LEVOTHYROXINE 50 MCG TAB PO SCH (08:36)
[2018-10-09] MEDS: PROPOFOL 100 ML IV SCH ×2 (08:37→21:30)
[2018-10-09] MEDS: BALSAM PERU/CASTOR OIL 60 GM TUBE TOP SCH ×2 (08:37→20:36)
[2018-10-09] MEDS: FERROUS SULFATE (EC) 325 MG TAB PO SCH (09:00)
--- NOTE | 2018-10-09 09:41 | CONS ---
Date/Time of Note Date/Time of Note DATE: 10/09/18 TIME: 09:37 Assessment/Plan Assessment/Plan Assessment/Plan Chest x-ray showing bilateral pneumonia. Ventilator setting; AC of 16, tidal volume 450, PEEP of 5, 30% FiO2. Assessment and recommendations; 1. Patient with history of dementia and chronic renal failure on hemodialysis admitted for respiratory failure due to extensive bilateral pneumonia and sepsis. Currently on appropriate antimicrobial and antifungal regimen. 2. Persistent leukocytosis. 3. Sacral ulcer. 4. History of hypothyroidism. 5. Anemia. 6. Proteus bacteremia. E. coli and Proteus UTI. 7. Encephalopathy with interval improvement. Patient however not tolerating CPAP mode due to hypoventilation. Continue to hold sedation. Continue current supportive care. Consider switching to Cancidas from Diflucan. Patient is improving clinically and if there is further improvement in mental status patient will be given a CPAP trial to assess in order to facilitate extubation. Overall prognosis still remains poor. 35 minutes of critical care time was spent evaluating the patient. Result Diagram: 10/09/18 0400 10/09/18 0400 Results 24hrs Laboratory Tests Test 10/08/18 21:22 10/09/18 04:00 10/09/18 05:26 10/09/18 05:40 Bedside Glucose 102 31 *L White Blood 26.5 H Count Red Blood Count 3.72 #L Hemoglobin 10.8 #L Hematocrit 34.4 #L Mean Corpuscular 92.5 Volume Mean Corpuscular 29.0 Hemoglobin Mean Corpuscular 31.4 L Hemoglobin Meredith nt Red Cell 21.2 H Distribution Width Platelet Count 201 Mean Platelet 10.3 Volume Immature 0.900 H Granulocytes % Neutrophils % 83.8 H Lymphocytes % 12.0 L Monocytes % 2.2 Eosinophils % 0.9 Basophils % 0.2 Nucleated Red 0.2 H Blood Cells % Immature 0.250 H Granulocytes # Neutrophils # 22.2 H Lymphocytes # 3.2 H Monocytes # 0.6 Eosinophils # 0.2 Basophils # 0.1 Nucleated Red 0.0 Blood Cells # Sodium Level 136 Potassium Level 3.5 Chloride Level 101 Carbon Dioxide 27 Level Anion Gap 8 Blood Urea 19 # Nitrogen Creatinine 1.74 H Est Glomerular Filtrat Rate mL/min Glucose Level 26 #*L Lactic Acid 1.7 Level Calcium Level 7.1 L Lab Scanned BLOOD TRANSFUSIO Report N Test 10/09/18 05:43 10/09/18 05:59 10/09/18 06:08 10/09/18 06:20 Bedside Glucose 29 *L 193 145 136 Test 10/09/18 09:00 Blood Gas Blood arterial Specimen Source Arterial Blood 10/09/2018 8:56:10 Date Drawn AM Arterial Blood 7.452 H pH (Temp corrected) Arterial Blood 36.9 pCO2 (Temp correct) Arterial Blood 87.6 pO2 (Temp corrected) Arterial Blood 25.2 HCO3 Arterial Blood 1.4 Base Excess Arterial Blood 96.7 Oxygen Saturatio n Jacinto Test ACCEPTAB Arterial Blood Right Radial Gas Puncture Site Arterial 0.6 Blood Carboxyhem oglobin Arterial Blood 0.3 Methemoglobin Blood Gas A-a O2 82.9 H Differential Oxyhemoglobin 95.8 Percent Blood Gas 37.0 Temperature Blood Gas 16.0 Respiration Rate Blood Gas Actual 17 Respiration Rate Blood Gas VENT - AC Modality FiO2 30.0 Blood Gas Tidal 450.0 Volume Blood Gas Low 5.0 PEEP Setting Blood Gas TM Notified Whom Blood Gas 10/09/2018 9:06:30 Notified Time AM Consultation Date/Type/Reason Admit Date/Time Oct 05, 2018 at 07:51 Initial Consult Date 10/05/18 Type of Consult Pulmonary/critical care History of presenting illness; patient is a 78-year-old woman who was transferred to ER [facility] with hypotension. Upon further evaluation patient is been diagnosed with bilateral pneumonia as well as UTI with sepsis. Patient has been adequately fluid resuscitated but still requiring Levophed for hypotension. Patient has history of chronic encephalopathy and is currently und er sedation. Past medical history; 1. History of dementia and chronic encephalopathy. 2. History of diabetes and hypothyroidism. Medications; reviewed. Patient is currently on Levophed at 11 mics per minute. Propofol at 10 mics per kilogram per minute. Allergies; as outlined above. Social history; not available. Family history; not available. Occupational history; not available. Review of system; unable to be obtained. General exam; elderly woman, orally intubated, sedated, currently in no distress. Requesting Provider: YOEL DAVILA 24 HR Interval Summary Free Text/Dictation Patient's condition remains critical but stable. Patient is more awake and somewhat responsive. Has remained hemodynamically stable. General exam; elderly female, orally intubated, awake and responsive. Currently in no distress. Exam/Review of Systems Vital Signs Vitals Vital Signs Date Temp Pulse Resp B/P (MAP) Pulse Ox O2 O2 Flow FiO2 Time Delivery Rate 10/09/18 73 08:00 10/09/18 16 104/46 99 06:45 (65) 10/09/18 Mechanical 06:00 Ventilator 10/09/18 30 05:27 10/09/18 98.4 04:01 Intake and Output 10/08/18 10/08/18 10/09/18 1515:00 23:00 07:00 IntakeIntake Total 850.626 ml 922.296 ml 650.812 ml OutputOutput Total 2500 ml 0 ml 0 ml BalanceBalance -1649.374 ml 922.296 ml 650.812 ml Exam H EENT exam; supple neck, no JVD. No lymphadenopathy. Midline trachea. No thyromegaly. Patient has fair dentition. Orogastric tube in place. Orally intubated. Pupils are small bilaterally. Chest exam; diminished breath sounds bilaterally. S1-S2 audible, no murmurs. Regular rhythm. Abdomen exam; soft, no organomegaly. Bowel sounds audible. Back examination; dressing applied over sacrum. Extremity exam; no peripheral edema. 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 BRANDS EDITOR exam; she is awake and opens eyes on name calling. Medications Medications Current Medications Ondansetron HCl (Zofran Inj) 4 mg Q6H PRN IV NAUSEA AND/OR VOMITING; Start 10/05/18 at 09:00 Acetaminophen (Tylenol Liquid) 650 mg Q6H PRN PO PAIN LEVEL 1-3 OR FEVER; Start 10/05/18 at 09:00 Docusate Sodium (Colace) 100 mg Q12H PRN PO CONSTIPATION; Start 10/05/18 at 09:00 Aspirin (Aspirin) 81 mg DAILY PO Last administered on 10/09/18at 08:36; Admin Dose 81 MG; Start 10/06/18 at 09:00 Atorvastatin Calcium (Lipitor) 80 mg QHS PO Last administered on 10/08/18at 21:08; Admin Dose 80 MG; Start 10/05/18 at 21:00 Cholecalciferol (Vitamin D) 2,000 unit DAILY PO Last administered on 10/09/18at 08:35; Admin Dose 2,000 UNIT; Start 10/06/18 at 09:00 Clopidogrel Bisulfate (plaVIX) 75 mg DAILY PO Last administered on 10/09/18 08:35; Admin Dose 75 MG; Start 10/06/18 at 09:00 Ferrous Sulfate (Ferrous Sulfate (Ec)) 325 mg BID PO Last administered on 10/08/18 21:09; Admin Dose 325 MG; Start 10/05/18 at 21:00 Folic Acid (Folic Acid) 1 mg DAILY PO Last administered on 10/09/18 08:35; Admin Dose 1 MG; Start 10/06/18 at 09:00 Levothyroxine Sodium (Synthroid) 50 mcg BEFORE BREAKFAST PO Last administered on 10/09/18 08:36; Admin Dose 50 MCG; Start 10/06/18 at 07:00 Multivit/Ca Carb/ B Cmplx/FA/Prenat (Lizzy-Juanpablo) 1 tab DAILY PO Last administered on 10/09/18 08:35; Admin Dose 1 TAB; Start 10/06/18 at 09:00 Polyethylene Glycol (Miralax) 17 gm DAILY PO Last administered on 10/09/18 08:36; Admin Dose 17 GM; Start 10/06/18 at 09:00 Vitamin B Complex/ Vitamin C (Berocca) 1 cap DAILY PO Last administered on 10/09/18 08:36; Admin Dose 1 CAP; Start 10/06/18 at 09:00 Zinc Sulfate (Zinc Sulfate) 220 mg DAILY PO Last administered on 10/09/18 08:36; Admin Dose 220 MG; Start 10/06/18 at 09:00 Eye Lubricant (Artificial Tears Oph) 1 drop TID BOTH EYES Last administered on 10/09/18 08:36; Admin Dose 1 DROP; Start 10/05/18 at 14:00 Linezolid 300 ml @ 300 mls/hr Q12 IVPB Last administered on 10/09/18 08:36; Admin Dose 300 MLS/HR; Start 10/05/18 at 12:30 Miscellaneous Information (Pending Santyl Order For Wound Care) This patient sams... PRN PRN XX SLOUGH/SOILED; Start 10/05/18 at 13:00 Collagenase (Santyl) 1 applic Q12 TOP Last administered on 10/09/18 08:34; Admin Dose 1 APPLIC; Start 10/05/18 at 14:00 Collagenase (Santyl) 1 applic PRN PRN TOP PRN; Start 10/05/18 at 15:39 Norepinephrine 250 ml @ 1.875 mls/ hr TITRATE IV Last administered on 10/09/18at 00:37; Admin Dose 1.875 MLS/HR; Start 10/05/18 at 23:00 Sodium Phosphate (Neutra-Phos) 500 mg BID GTB Last administered on 10/09/18at 08:35; Admin Dose 500 MG; Start 10/06/18 at 10:30 Calcium/Vitamin D (Oyster Shell/ Vit-D (500/200)) 1 tab Q24H PO Last administered on 10/08/18at 17:58; Admin Dose 1 TAB; Start 10/06/18 at 17:00 Morphine Sulfate (morphine) 6 mg Q4H PRN GTB SEVERE PAIN LEVEL 7-10; Start 10/06/18 at 11:00 Lansoprazole (Prevacid) 30 mg DAILY@06 GTB Last administered on 10/09/18at 05:52; Admin Dose 30 MG; Start 10/07/18 at 06:00 Fluconazole/ Sodium Chloride 50 ml @ 50 mls/hr Q24H IVPB Last administered on 10/08/18at 16:41; Admin Dose 50 MLS/HR; Start 10/06/18 at 14:00 Miscellaneous Information 1 ea NOTE XX ; Start 10/06/18 at 15:30 Glucose (Glutose) 15 gm Q15M PRN PO DECREASED GLUCOSE; Start 10/06/18 at 15:30 Glucose (Glutose) 22.5 gm Q15M PRN PO DECREASED GLUCOSE; Start 10/06/18 at 15:30 Dextrose (D50w Syringe) 25 ml Q15M PRN IV DECREASED GLUCOSE Last administered on 10/07/18at 22:18; Admin Dose 25 ML; Start 10/06/18 at 15:30 Dextrose (D50w Syringe) 50 ml Q15M PRN IV DECREASED GLUCOSE Last administered on 10/09/18at 05:49; Admin Dose 50 ML; Start 10/06/18 at 15:30 Glucagon (Glucagen) 1 mg Q15M PRN IM DECREASED GLUCOSE; Start 10/06/18 at 15:30 Glucose (Glutose) 15 gm Q15M PRN BUCCAL DECREASED GLUCOSE; Start 10/06/18 at 15:30 Insulin Glargine (Lantus) 9 units QHS SC Last administered on 10/08/18at 21:30; Admin Dose 9 UNITS; Start 10/07/18 at 21:00 Propofol 100 ml @ 1.818 mls/ hr Q12H IV Last administered on 10/06/18at 21:36; Admin Dose 2.545 MLS/HR; Start 10/06/18 at 21:30 Amikacin Sulfate (Amikacin Iv Per Pharmacy) AMIKACIN PER PHARMACY NOTE XX ; Start 10/08/18 at 15:00 Amikacin Sulfate 230 mg/Sodium Chloride 100.92 ml @ 102 mls/ hr AFTER DIALYSIS IVPB ; Start 10/09/18 at 18:00 Dextrose/Sodium Chloride 1,000 ml @ 50 mls/hr Q20H IV Last administered on 10/09/18at 06:26; Admin Dose 50 MLS/HR; Start 10/09/18 at 06:30 VLAD MARTIN Oct 09, 2018 09:41
[2018-10-09] MEDS: FERROUS SULFATE 60 MG/ML 5ML CUP GTB SCH ×2 (12:00→20:35)
--- NOTE | 2018-10-09 12:04 | CONS ---
Date/Time of Note Date/Time of Note DATE: 10/09/18 TIME: 12:02 Assessment/Plan Assessment/Plan Assessment/Plan 78 yo Female with 1) Hypoxia with Respiratory Failure 2) Severe Sepsis 3) S/p Cardiac Arrest with ROSC 4) ESRD on HD 5) Anemia, Chronic CKD 6) Hypophosphatemia 7) Left Gaze ? Off pressors Repeat CT head reviewed CT Head Sep 2018 reviewed. CXR reviewed Dry UF ordered for today Pt code status DNR, Cont HD treatment. Thank you for the opportunity to participate in the care of Ms Coffman Discussed with SUPERVISOR WEBBING. CC time spent >30 min. Result Diagram: 10/09/18 0400 10/09/18 0400 Results 24hrs Laboratory Tests Test 10/08/18 21:22 10/09/18 04:00 10/09/18 05:26 10/09/18 05:40 Bedside Glucose 102 31 *L White Blood 26.5 H Count Red Blood Count 3.72 #L Hemoglobin 10.8 #L Hematocrit 34.4 #L Mean Corpuscular 92.5 Volume Mean Corpuscular 29.0 Hemoglobin Mean Corpuscular 31.4 L Hemoglobin Meredith nt Red Cell 21.2 H Distribution Width Platelet Count 201 Mean Platelet 10.3 Volume Immature 0.900 H Granulocytes % Neutrophils % 83.8 H Lymphocytes % 12.0 L Monocytes % 2.2 Eosinophils % 0.9 Basophils % 0.2 Nucleated Red 0.2 H Blood Cells % Immature 0.250 H Granulocytes # Neutrophils # 22.2 H Lymphocytes # 3.2 H Monocytes # 0.6 Eosinophils # 0.2 Basophils # 0.1 Nucleated Red 0.0 Blood Cells # Sodium Level 136 Potassium Level 3.5 Chloride Level 101 Carbon Dioxide 27 Level Anion Gap 8 Blood Urea 19 # Nitrogen Creatinine 1.74 H Est Glomerular Filtrat Rate mL/min Glucose Level 26 #*L Lactic Acid 1.7 Level Calcium Level 7.1 L Lab Scanned BLOOD TRANSFUSIO Report N Test 10/09/18 05:43 10/09/18 05:59 10/09/18 06:08 10/09/18 06:20 Bedside Glucose 29 *L 193 145 136 Test 10/09/18 09:00 Blood Gas Blood arterial Specimen Source Arterial Blood 10/09/2018 8:56:10 Date Drawn AM Arterial Blood 7.452 H pH (Temp corrected) Arterial Blood 36.9 pCO2 (Temp correct) Arterial Blood 87.6 pO2 (Temp corrected) Arterial Blood 25.2 HCO3 Arterial Blood 1.4 Base Excess Arterial Blood 96.7 Oxygen Saturatio n Jacinto Test ACCEPTAB Arterial Blood Right Radial Gas Puncture Site Arterial 0.6 Blood Carboxyhem oglobin Arterial Blood 0.3 Methemoglobin Blood Gas A-a O2 82.9 H Differential Oxyhemoglobin 95.8 Percent Blood Gas 37.0 Temperature Blood Gas 16.0 Respiration Rate Blood Gas Actual 17 Respiration Rate Blood Gas VENT - AC Modality FiO2 30.0 Blood Gas Tidal 450.0 Volume Blood Gas Low 5.0 PEEP Setting Blood Gas TM Notified Whom Blood Gas 10/09/2018 9:06:30 Notified Time AM Consultation Date/Type/Reason Admit Date/Time Oct 05, 2018 at 07:51 Initial Consult Date 10/05/18 Type of Consult Nephrology Requesting Provider: YOEL DAVILA 24 HR Interval Summary Free Text/Dictation Hypoglycemia, Last HD yesterday. Subjective hx not possible: pt critical status Constitutional: requiring O2 Exam/Review of Systems Vital Signs Vitals Vital Signs Date Temp Pulse Resp B/P (MAP) Pulse Ox O2 O2 Flow FiO2 Time Delivery Rate 10/09/18 73 08:00 10/09/18 16 104/46 99 06:45 (65) 10/09/18 Mechanical 06:00 Ventilator 10/09/18 30 05:27 10/09/18 98.4 04:01 Intake and Output 10/08/18 10/08/18 10/09/18 1414:59 22:59 06:59 IntakeIntake Total 852.503 ml 923.232 ml 710.812 ml OutputOutput Total 2500 ml 0 ml 0 ml BalanceBalance -1647.497 ml 923.232 ml 710.812 ml Exam ENMT: mucosa pink and moist Neck: No jvd Respiratory: crackles/rales; No diminished breath sounds, No labored breathing Cardiovascular: edema Gastrointestinal: soft; No distended Neurological: lethargic, other (opens eyes) Skin: No diaphoresis Medications Medications Current Medications Ondansetron HCl (Zofran Inj) 4 mg Q6H PRN IV NAUSEA AND/OR VOMITING; Start 10/05/18 at 09:00 Acetaminophen (Tylenol Liquid) 650 mg Q6H PRN PO PAIN LEVEL 1-3 OR FEVER; Start 10/05/18 at 09:00 Docusate Sodium (Colace) 100 mg Q12H PRN PO CONSTIPATION; Start 10/05/18 at 09:00 Aspirin (Aspirin) 81 mg DAILY PO Last administered on 10/09/18 08:36; Admin Dos e 81 MG; Start 10/06/18 at 09:00 Atorvastatin Calcium (Lipitor) 80 mg QHS PO Last administered on 10/08/18 21:08; Admin Dose 80 MG; Start 10/05/18 at 21:00 Cholecalciferol (Vitamin D) 2,000 unit DAILY PO Last administered on 10/09/18 08:35; Admin Dose 2,000 UNIT; Start 10/06/18 at 09:00 Clopidogrel Bisulfate (plaVIX) 75 mg DAILY PO Last administered on 10/09/18 08:35; Admin Dose 75 MG; Start 10/06/18 at 09:00 Folic Acid (Folic Acid) 1 mg DAILY PO Last administered on 10/09/18 08:35; Admin Dose 1 MG; Start 10/06/18 at 09:00 Levothyroxine Sodium (Synthroid) 50 mcg BEFORE BREAKFAST PO Last administered on 10/09/18 08:36; Admin Dose 50 MCG; Start 10/06/18 at 07:00 Multivit/Ca Carb/ B Cmplx/FA/Prenat (Lizzy-Juanpablo) 1 tab DAILY PO Last administered on 10/09/18 08:35; Admin Dose 1 TAB; Start 10/06/18 at 09:00 Polyethylene Glycol (Miralax) 17 gm DAILY PO Last administered on 10/09/18 08:36; Admin Dose 17 GM; Start 10/06/18 at 09:00 Vitamin B Complex/ Vitamin C (Berocca) 1 cap DAILY PO Last administered on 10/09/18 08:36; Admin Dose 1 CAP; Start 10/06/18 at 09:00 Zinc Sulfate (Zinc Sulfate) 220 mg DAILY PO Last administered on 10/09/18 08:36; Admin Dose 220 MG; Start 10/06/18 at 09:00 Eye Lubricant (Artificial Tears Oph) 1 drop TID BOTH EYES Last administered on 10/09/18 08:36; Admin Dose 1 DROP; Start 10/05/18 at 14:00 Linezolid 300 ml @ 300 mls/hr Q12 IVPB Last administered on 10/09/18at 08:36; Admin Dose 300 MLS/HR; Start 10/05/18 at 12:30 Miscellaneous Information (Pending Santyl Order For Wound Care) This patient sams... PRN PRN XX SLOUGH/SOILED; Start 10/05/18 at 13:00 Collagenase (Santyl) 1 applic Q12 TOP Last administered on 10/09/18at 08:34; Admin Dose 1 APPLIC; Start 10/05/18 at 14:00 Collagenase (Santyl) 1 applic PRN PRN TOP PRN; Start 10/05/18 at 15:39 Norepinephrine 250 ml @ 1.875 mls/ hr TITRATE IV Last administered on 10/09/18at 00:37; Admin Dose 1.875 MLS/HR; Start 10/05/18 at 23:00 Sodium Phosphate (Neutra-Phos) 500 mg BID GTB Last administered on 10/09/18at 08:35; Admin Dose 500 MG; Start 10/06/18 at 10:30 Calcium/Vitamin D (Oyster Shell/ Vit-D (500/200)) 1 tab Q24H PO Last administered on 10/08/18at 17:58; Admin Dose 1 TAB; Start 10/06/18 at 17:00 Morphine Sulfate (morphine) 6 mg Q4H PRN GTB SEVERE PAIN LEVEL 7-10; Start 10/06/18 at 11:00 Lansoprazole (Prevacid) 30 mg DAILY@06 GTB Last administered on 10/09/18at 05:52; Admin Dose 30 MG; Start 10/07/18 at 06:00 Fluconazole/ Sodium Chloride 50 ml @ 50 mls/hr Q24H IVPB Last administered on 10/08/18at 16:41; Admin Dose 50 MLS/HR; Start 10/06/18 at 14:00 Miscellaneous Information 1 ea NOTE XX ; Start 10/06/18 at 15:30 Glucose (Glutose) 15 gm Q15M PRN PO DECREASED GLUCOSE; Start 10/06/18 at 15:30 Glucose (Glutose) 22.5 gm Q15M PRN PO DECREASED GLUCOSE; Start 10/06/18 at 15:30 Dextrose (D50w Syringe) 25 ml Q15M PRN IV DECREASED GLUCOSE Last administered on 10/07/18at 22:18; Admin Dose 25 ML; Start 10/06/18 at 15:30 Dextrose (D50w Syringe) 50 ml Q15M PRN IV DECREASED GLUCOSE Last administered on 10/09/18at 05:49; Admin Dose 50 ML; Start 10/06/18 at 15:30 Glucagon (Glucagen) 1 mg Q15M PRN IM DECREASED GLUCOSE; Start 10/06/18 at 15:30 Glucose (Glutose) 15 gm Q15M PRN BUCCAL DECREASED GLUCOSE; Start 10/06/18 at 15: 30 Insulin Glargine (Lantus) 9 units QHS SC Last administered on 10/08/18at 21:30; Admin Dose 9 UNITS; Start 10/07/18 at 21:00 Propofol 100 ml @ 1.818 mls/ hr Q12H IV Last administered on 10/06/18at 21:36; Admin Dose 2.545 MLS/HR; Start 10/06/18 at 21:30 Amikacin Sulfate (Amikacin Iv Per Pharmacy) AMIKACIN PER PHARMACY NOTE XX ; Start 10/08/18 at 15:00 Amikacin Sulfate 230 mg/Sodium Chloride 100.92 ml @ 102 mls/ hr AFTER DIALYSIS IVPB ; Start 10/09/18 at 18:00 Dextrose/Sodium Chloride 1,000 ml @ 50 mls/hr Q20H IV Last administered on 10/09/18at 06:26; Admin Dose 50 MLS/HR; Start 10/09/18 at 06:30 Ferrous Sulfate (Feosol Liquid Cup) 300 mg BID GTB ; Start 10/09/18 at 12:00 Imaging Imaging CXR IMPRESSION: Calcified atherosclerosis in the aorta. Central pulmonary vascular congestion and interstitial prominence in both lungs. Stable bilateral perihilar and lower lung infiltrates with small to moderate pleural effusions. RPTAT: AA .Sohail Elizabeth MD, Date Time Electronically viewed and signed by .Sohail Elizabeth MD, on 10/09/2018 07:50 KATHIA SULLIVAN MD Oct 09, 2018 12:04
--- NOTE | 2018-10-09 12:51 | PN ---
Date/Time of Note Date/Time of Note DATE: 10/09/18 TIME: 12:50 Assessment/Plan VTE Prophylaxis Risk score (from Ns)>0 risk: 13 SCD applied (from Ns): Yes Pharmacological prophylaxis: heparin Lines/Catheters IV [facility]from [facility] Permacath Urinary Cath still in place: No Assessment/Plan Hospital Course 78 yo female with h/o ESRD, PAD, DMII, very debilitated who presents wtih septic shock and mulitorgain failure - Continue life support for now. This patient is at advanced state of illness with poor baseline quality of life, I know her from previously. She is now in shock and on life support without a good quality of life to return to. I discussed grave prognosis with her daughter. She is not quite ready for terminal extubation but she is willing to consider this in the coming days. There is very minimal chance for meaningful recovery here Acute repiratory failure: - Continue MV per pulm Septic shock: - Continue abx per ID, vasopressors DMII - inuslin DNR Consider terminal extubation in coming 1-2 days. Daughter aware Result Diagram: 10/09/18 0400 10/09/18 0400 Results 24hrs Laboratory Tests Test 10/08/18 21:22 10/09/18 04:00 10/09/18 05:26 10/09/18 05:40 Bedside Glucose 102 31 *L White Blood 26.5 H Count Red Blood Count 3.72 #L Hemoglobin 10.8 #L Hematocrit 34.4 #L Mean Corpuscular 92.5 Volume Mean Corpuscular 29.0 Hemoglobin Mean Corpuscular 31.4 L Hemoglobin Meredith nt Red Cell 21.2 H Distribution Width Platelet Count 201 Mean Platelet 10.3 Volume Immature 0.900 H Granulocytes % Neutrophils % 83.8 H Lymphocytes % 12.0 L Monocytes % 2.2 Eosinophils % 0.9 Basophils % 0.2 Nucleated Red 0.2 H Blood Cells % Immature 0.250 H Granulocytes # Neutrophils # 22.2 H Lymphocytes # 3.2 H Monocytes # 0.6 Eosinophils # 0.2 Basophils # 0.1 Nucleated Red 0.0 Blood Cells # Sodium Level 136 Potassium Level 3.5 Chloride Level 101 Carbon Dioxide 27 Level Anion Gap 8 Blood Urea 19 # Nitrogen Creatinine 1.74 H Est Glomerular Filtrat Rate mL/min Glucose Level 26 #*L Lactic Acid 1.7 Level Calcium Level 7.1 L Lab Scanned BLOOD TRANSFUSIO Report N Test 10/09/18 05:43 10/09/18 05:59 10/09/18 06:08 10/09/18 06:20 Bedside Glucose 29 *L 193 145 136 Test 10/09/18 09:00 10/09/18 12:02 10/09/18 12:14 Blood Gas Blood arterial Specimen Source Arterial Blood 10/09/2018 8:56:10 Date Drawn AM Arterial Blood 7.452 H pH (Temp corrected) Arterial Blood 36.9 pCO2 (Temp correct) Arterial Blood 87.6 pO2 (Temp corrected) Arterial Blood 25.2 HCO3 Arterial Blood 1.4 Base Excess Arterial Blood 96.7 Oxygen Saturatio n Jacinto Test ACCEPTAB Arterial Blood Right Radial Gas Puncture Site Arterial 0.6 Blood Carboxyhem oglobin Arterial Blood 0.3 Methemoglobin Blood Gas A-a O2 82.9 H Differential Oxyhemoglobin 95.8 Percent Blood Gas 37.0 Temperature Blood Gas 16.0 Respiration Rate Blood Gas Actual 17 Respiration Rate Blood Gas VENT - AC Modality FiO2 30.0 Blood Gas Tidal 450.0 Volume Blood Gas Low 5.0 PEEP Setting Blood Gas TM Notified Whom Blood Gas 10/09/2018 9:06:30 Notified Time AM Bedside Glucose 44 *L 135 Subjective 24 Hr Interval Summary Free Text/Dictation Remains intubated, sedated Off of pressors Discussed very poor prognosis with daughter. Again offered comfort care. She is not ready to make this decision but is open to it Exam/Review of Systems Vital Signs Vitals Vital Signs Date Temp Pulse Resp B/P (MAP) Pulse Ox O2 O2 Flow FiO2 Time Delivery Rate 10/09/18 71 12:00 10/09/18 16 104/46 99 06:45 (65) 10/09/18 Mechanical 06:00 Ventilator 10/09/18 30 05:27 10/09/18 98.4 04:01 Intake and Output 10/08/18 10/08/18 10/09/18 1515:00 23:00 07:00 IntakeIntake Total 850.626 ml 922.296 ml 650.812 ml OutputOutput Total 2500 ml 0 ml 0 ml BalanceBalance -1649.374 ml 922.296 ml 650.812 ml Medications Medications Current Medications Ondansetron HCl (Zofran Inj) 4 mg Q6H PRN IV NAUSEA AND/OR VOMITING; Start 10/05/18 at 09:00 Acetaminophen (Tylenol Liquid) 650 mg Q6H PRN PO PAIN LEVEL 1-3 OR FEVER; Start 10/05/18 at 09:00 Docusate Sodium (Colace) 100 mg Q12H PRN PO CONSTIPATION; Start 10/05/18 at 09:00 Clopidogrel Bisulfate (plaVIX) 75 mg DAILY PO Last administered on 10/09/18 08:35; Admin Dose 75 MG; Start 10/06/18 at 09:00 Folic Acid (Folic Acid) 1 mg DAILY PO Last administered on 10/09/18 08:35; Admin Dose 1 MG; Start 10/06/18 at 09:00 Levothyroxine Sodium (Synthroid) 50 mcg BEFORE BREAKFAST PO Last administered on 10/09/18 08:36; Admin Dose 50 MCG; Start 10/06/18 at 07:00 Multivit/Ca Carb/ B Cmplx/FA/Prenat (Lizzy-Juanpablo) 1 tab DAILY PO Last administered on 10/09/18 08:35; Admin Dose 1 TAB; Start 10/06/18 at 09:00 Polyethylene Glycol (Miralax) 17 gm DAILY PO Last administered on 10/09/18 08:36; Admin Dose 17 GM; Start 10/06/18 at 09:00 Vitamin B Complex/ Vitamin C (Berocca) 1 cap DAILY PO Last administered on 10/09/18 08:36; Admin Dose 1 CAP; Start 10/06/18 at 09:00 Zinc Sulfate (Zinc Sulfate) 220 mg DAILY PO Last administered on 10/09/18 08:36; Admin Dose 220 MG; Start 10/06/18 at 09:00 Eye Lubricant (Artificial Tears Oph) 1 drop TID BOTH EYES Last administered on 10/09/18 08:36; Admin Dose 1 DROP; Start 10/05/18 at 14:00 Linezolid 300 ml @ 300 mls/hr Q12 IVPB Last administered on 10/09/18 08:36; Admin Dose 300 MLS/HR; Start 10/05/18 at 12:30 Miscellaneous Information (Pending [facility] Order For Wound Care) This patient sams... PRN PRN XX SLOUGH/SOILED; Start 10/05/18 at 13:00 Collagenase (Santyl) 1 applic Q12 TOP Last administered on 10/09/18at 08:34; Admin Dose 1 APPLIC; Start 10/05/18 at 14:00 Collagenase (Santyl) 1 applic PRN PRN TOP PRN; Start 10/05/18 at 15:39 Norepinephrine 250 ml @ 1.875 mls/ hr TITRATE IV Last administered on 10/09/18at 00:37; Admin Dose 1.875 MLS/HR; Start 10/05/18 at 23:00 Sodium Phosphate (Neutra-Phos) 500 mg BID GTB Last administered on 10/09/18at 08:35; Admin Dose 500 MG; Start 10/06/18 at 10:30 Morphine Sulfate (morphine) 6 mg Q4H PRN GTB SEVERE PAIN LEVEL 7-10; Start 10/06/18 at 11:00 Lansoprazole (Prevacid) 30 mg DAILY@06 GTB Last administered on 10/09/18at 05:52; Admin Dose 30 MG; Start 10/07/18 at 06:00 Fluconazole/ Sodium Chloride 50 ml @ 50 mls/hr Q24H IVPB Last administered on 10/08/18at 16:41; Admin Dose 50 MLS/HR; Start 10/06/18 at 14:00 Miscellaneous Information 1 ea NOTE XX ; Start 10/06/18 at 15:30 Glucose (Glutose) 15 gm Q15M PRN PO DECREASED GLUCOSE; Start 10/06/18 at 15:30 Glucose (Glutose) 22.5 gm Q15M PRN PO DECREASED GLUCOSE; Start 10/06/18 at 15:30 Dextrose (D50w Syringe) 25 ml Q15M PRN IV DECREASED GLUCOSE Last administered on 10/07/18at 22:18; Admin Dose 25 ML; Start 10/06/18 at 15:30 Dextrose (D50w Syringe) 50 ml Q15M PRN IV DECREASED GLUCOSE Last administered on 10/09/18at 12:06; Admin Dose 50 ML; Start 10/06/18 at 15:30 Glucagon (Glucagen) 1 mg Q15M PRN IM DECREASED GLUCOSE; Start 10/06/18 at 15:30 Glucose (Glutose) 15 gm Q15M PRN BUCCAL DECREASED GLUCOSE; Start 10/06/18 at 15:30 Propofol 100 ml @ 1.818 mls/ hr Q12H IV Last administered on 10/06/18at 21:36; Admin Dose 2.545 MLS/HR; Start 10/06/18 at 21:30 Amikacin Sulfate (Amikacin Iv Per Pharmacy) AMIKACIN PER PHARMACY NOTE XX ; Start 10/08/18 at 15:00 Amikacin Sulfate 230 mg/Sodium Chloride 100.92 ml @ 102 mls/ hr AFTER DIALYSIS IVPB ; Start 10/09/18 at 18:00 Ferrous Sulfate (Feosol Liquid Cup) 300 mg BID GTB ; Start 10/09/18 at 12:00 Diagnostic Test (Pha) (Accu-Chek) 1 ea Q4 XX ; Start 10/09/18 at 13:00 ADITI BOWDEN MD Oct 09, 2018 12:51
[2018-10-09] MEDS ORDERED: ACCU-CHEK XX SCH (13:00)
[2018-10-09] MEDS: ACCU-CHEK XX SCH ×3 (13:12→21:03)
[2018-10-09] MEDS: FLUCONAZOLE 100 MG/50 ML (PMX) 50 ML IVPB SCH (14:31)
--- NOTE | 2018-10-09 15:33 | CONS ---
Date/Time of Note Date/Time of Note DATE: 10/09/18 TIME: 15:32 Assessment/Plan Assessment/Plan Hospital Course Patient is off pressors looks comfortable no fevers overnight. WBC 26.5 H&H 10.8 and 34.4 platelets 201 neutrophils 83.8 Microbiology: Sacral wound culture growing staph aureus Proteus mirabilis Klebsiella pneumoniae ESBL. Blood culture on admission grew Proteus and coag negative staph species, repeat blood cultures negative, urine culture positive for Germania albicans Antimicrobials: Fluconazole, Amikacin, Zyvox Indwelling: Endotracheal tube NG tube Teixeira catheter, right IJ permacath, left IJ triple-lumen catheter. Physical examination: This is a chronically ill-appearing wasted elderly woman w ho is intubated in no distress. Head atraumatic normocephalic. Neck is supple. Chest rise symmetrical, breath sounds diminished bases. Heart: S1-S2. Abdomen soft bowel sounds hypoactive. Extremities cyanotic mottled Assessment: 1. Severe sepsis with shock 2. Polymicrobial bacteremia, rule out line sepsis 3. Germania albicans UTI 4. Bilateral healthcare associated pneumonia, possibly aspirated 5. Unstageable sacral decub 6. End-stage renal disease, hemodialysis dependent 7. Diabetes 8. History of right patellar fracture complicated by MRSA infected hardware, removed in May [address] Hedrick Plan: Stable off pressors, repeat blood cultures negative, continue abx, local wound care, vent management per pulmonary Result Diagram: 10/09/18 0400 10/09/18 0400 Results 24hrs Laboratory Tests Test 10/08/18 21:22 10/09/18 04:00 10/09/18 05:26 10/09/18 05:40 Bedside Glucose 102 31 *L White Blood 26.5 H Count Red Blood Count 3.72 #L Hemoglobin 10.8 #L Hematocrit 34.4 #L Mean Corpuscular 92.5 Volume Mean Corpuscular 29.0 Hemoglobin Mean Corpuscular 31.4 L Hemoglobin Meredith nt Red Cell 21.2 H Distribution Width Platelet Count 201 Mean Platelet 10.3 Volume Immature 0.900 H Granulocytes % Neutrophils % 83.8 H Lymphocytes % 12.0 L Monocytes % 2.2 Eosinophils % 0.9 Basophils % 0.2 Nucleated Red 0.2 H Blood Cells % Immature 0.250 H Granulocytes # Neutrophils # 22.2 H Lymphocytes # 3.2 H Monocytes # 0.6 Eosinophils # 0.2 Basophils # 0.1 Nucleated Red 0.0 Blood Cells # Sodium Level 136 Potassium Level 3.5 Chloride Level 101 Carbon Dioxide 27 Level Anion Gap 8 Blood Urea 19 # Nitrogen Creatinine 1.74 H Est Glomerular Filtrat Rate mL/min Glucose Level 26 #*L Lactic Acid 1.7 Level Calcium Level 7.1 L Lab Scanned BLOOD TRANSFUSIO Report N Test 10/09/18 05:43 10/09/18 05:59 10/09/18 06:08 10/09/18 06:20 Bedside Glucose 29 *L 193 145 136 Test 10/09/18 09:00 10/09/18 12:02 10/09/18 12:14 10/09/18 12:47 Blood Gas Blood arterial Specimen Source Arterial Blood 10/09/2018 8:56:10 Date Drawn AM Arterial Blood 7.452 H pH (Temp corrected) Arterial Blood 36.9 pCO2 (Temp correct) Arterial Blood 87.6 pO2 (Temp corrected) Arterial Blood 25.2 HCO3 Arterial Blood 1.4 Base Excess Arterial Blood 96.7 Oxygen Saturatio n Jacinto Test ACCEPTAB Arterial Blood Right Radial Gas Puncture Site Arterial 0.6 Blood Carboxyhem oglobin Arterial Blood 0.3 Methemoglobin Blood Gas A-a O2 82.9 H Differential Oxyhemoglobin 95.8 Percent Blood Gas 37.0 Temperature Blood Gas 16.0 Respiration Rate Blood Gas Actual 17 Respiration Rate Blood Gas VENT - AC Modality FiO2 30.0 Blood Gas Tidal 450.0 Volume Blood Gas Low 5.0 PEEP Setting Blood Gas TM Notified Whom Blood Gas 10/09/2018 9:06:30 Notified Time AM Bedside Glucose 44 *L 135 216 Test 10/09/18 13:11 Bedside Glucose 205 Consultation Date/Type/Reason Admit Date/Time Oct 05, 2018 at 07:51 Initial Consult Date 10/05/18 Type of Consult id Requesting Provider: YOEL DAVILA Exam/Review of Systems Vital Signs Vitals Vital Signs Date Temp Pulse Resp B/P (MAP) Pulse Ox O2 O2 Flow FiO2 Time Delivery Rate 10/09/18 78 16 98 30 15:13 10/09/18 107/55 Mechanical 14:30 (72) Ventilator 10/09/18 98.2 12:00 Intake and Output 10/08/18 10/08/18 10/09/18 1414:59 22:59 06:59 IntakeIntake Total 852.503 ml 923.232 ml 710.812 ml OutputOutput Total 2500 ml 0 ml 0 ml BalanceBalance -1647.497 ml 923.232 ml 710.812 ml Medications Medications Current Medications Ondansetron HCl (Zofran Inj) 4 mg Q6H PRN IV NAUSEA AND/OR VOMITING; Start 10/05/18 at 09:00 Acetaminophen (Tylenol Liquid) 650 mg Q6H PRN PO PAIN LEVEL 1-3 OR FEVER; Start 10/05/18 at 09:00 Docusate Sodium (Colace) 100 mg Q12H PRN PO CONSTIPATION; Start 10/05/18 at 09:00 Clopidogrel Bisulfate (plaVIX) 75 mg DAILY PO Last administered on 10/09/18 08:35; Admin Dose 75 MG; Start 10/06/18 at 09:00 Folic Acid (Folic Acid) 1 mg DAILY PO Last administered on 10/09/18 08:35; Admin Dose 1 MG; Start 10/06/18 at 09:00 Levothyroxine Sodium (Synthroid) 50 mcg BEFORE BREAKFAST PO Last administered on 10/09/18 08:36; Admin Dose 50 MCG; Start 10/06/18 at 07:00 Multivit/Ca Carb/ B Cmplx/FA/Prenat (Lizzy-Juanpablo) 1 tab DAILY PO Last administered on 10/09/18 08:35; Admin Dose 1 TAB; Start 10/06/18 at 09:00 Polyethylene Glycol (Miralax) 17 gm DAILY PO Last administered on 10/09/18 08:36; Admin Dose 17 GM; Start 10/06/18 at 09:00 Vitamin B Complex/ Vitamin C (Berocca) 1 cap DAILY PO Last administered on 10/09/18 08:36; Admin Dose 1 CAP; Start 10/06/18 at 09:00 Zinc Sulfate (Zinc Sulfate) 220 mg DAILY PO Last administered on 10/09/18 08:36; Admin Dose 220 MG; Start 10/06/18 at 09:00 Eye Lubricant (Artificial Tears Oph) 1 drop TID BOTH EYES Last administered on 10/09/18 13:12; Admin Dose 1 DROP; Start 10/05/18 at 14:00 Linezolid 300 ml @ 300 mls/hr Q12 IVPB Last administered on 10/09/18 08:36; Admin Dose 300 MLS/HR; Start 10/05/18 at 12:30 Miscellaneous Information (Pending Santyl Order For Wound Care) This patient sams... PRN PRN XX SLOUGH/SOILED; Start 10/05/18 at 13:00 Collagenase (Santyl) 1 applic Q12 TOP Last administered on 10/09/18at 08:34; Admin Dose 1 APPLIC; Start 10/05/18 at 14:00 Collagenase (Santyl) 1 applic PRN PRN TOP PRN; Start 10/05/18 at 15:39 Norepinephrine 250 ml @ 1.875 mls/ hr TITRATE IV Last administered on 10/09/18 00:37; Admin Dose 1.875 MLS/HR; Start 10/05/18 at 23:00 Sodium Phosphate (Neutra-Phos) 500 mg BID GTB Last administered on 10/09/18 08:35; Admin Dose 500 MG; Start 10/06/18 at 10:30 Morphine Sulfate (morphine) 6 mg Q4H PRN GTB SEVERE PAIN LEVEL 7-10; Start 10/06/18 at 11:00 Lansoprazole (Prevacid) 30 mg DAILY@06 GTB Last administered on 10/09/18 05:52; Admin Dose 30 MG; Start 10/07/18 at 06:00 Fluconazole/ Sodium Chloride 50 ml @ 50 mls/hr Q24H IVPB Last administered on 10/09/18at 14:31; Admin Dose 50 MLS/HR; Start 10/06/18 at 14:00 Propofol 100 ml @ 1.818 mls/ hr Q12H IV Last administered on 10/06/18 21:36; Admin Dose 2.545 MLS/HR; Start 10/06/18 at 21:30 Amikacin Sulfate (Amikacin Iv Per Pharmacy) AMIKACIN PER PHARMACY NOTE XX ; Start 10/08/18 at 15:00 Amikacin Sulfate 230 mg/Sodium Chloride 100.92 ml @ 102 mls/ hr AFTER DIALYSIS IVPB ; Start 10/09/18 at 18:00 Ferrous Sulfate (Feosol Liquid Cup) 300 mg BID GTB Last administered on 10/09/18at 12:00; Admin Dose 300 MG; Start 10/09/18 at 12:00 Diagnostic Test (Pha) (Accu-Chek) 1 ea Q4 XX Last administered on 10/09/18at 13:12; Admin Dose 1 EA; Start 10/09/18 at 13:00 CARINE GOMEZ NP Oct 09, 2018 15:33
[2018-10-09] MEDS ORDERED: SOD CHLORIDE 0.9% IVPB SCH (18:00)
[2018-10-09] MEDS ORDERED: AMIKACIN IVPB SCH (18:00)
[2018-10-10] VITALS (57 sets, daily range): BP systolic 71–205; BP diastolic 39–111; PULSE 73–99; RESP 8–27
[2018-10-10] MEDS: ACCU-CHEK XX SCH ×4 (00:43→15:14)
[2018-10-10] MEDS: LANSOPRAZOLE 30 MG CAP GTB SCH (06:49)
[2018-10-10] MEDS: LEVOTHYROXINE 50 MCG TAB PO SCH (06:49)
--- NOTE | 2018-10-10 07:09 | CONS ---
Date/Time of Note Date/Time of Note DATE: 10/10/18 TIME: 07:08 Assessment/Plan Assessment/Plan Hospital Course Patient is a 78-year presents back to [facility] respiratory failure currently intubated in the intensive care unit. Etiology of sepsis possibly urinary tract infection possibly from stage IV decubiti. Patient also has significant comorbid medical problems including end-stage renal disease type 2 diabetes encephalopathy reviewing patient's medical records speaking to patient's critical care nurse patient has at least 3 areas that could be causing her sepsis syndrome 1 bibasilar pneumonia #2 urinary tract infection #3 open unstageable wounds. In spite of that patient was being treated aggressively seen by multiple different subspecialists. Last time I was involved with this patient's care was her last hospitalization that was within the last 2 months. Also comorbid medical problems include a history of type 2 diabetes and end- stage renal disease but essentially patient is dying from multiorgan system failure. Assessment/Plan Since have last seen patient on October 08 he is not significantly improved. She still being dialyzed still intubated not tolerating NG tube feedings becomes hypotensive during dialysis requiring pressors. White blood cell count now is 19,000, chest x-ray essentially stable bilateral perihilar and lower lung infiltrates small to moderate pleural effusions bilateral lungs. Her daughter is been at the bedside daily she is not here at this time. In speaking with critical care nurse patient's daughter is reconsidering her decision for aggressive intervention. Dr. Branham has discussed patient's current condition and asked us to discuss palliation of care. Patient's advanced age gravity of her underlying pulmonary condition, in spite of the fact that she has recovered from the similar episode recently patient still has a very poor prognosis. Will speak to family members once again asked him to consider just palliation of care. Result Diagram: 10/10/18 0449 10/10/18 0449 Results 24hrs Laboratory Tests Test 10/09/18 09:00 10/09/18 12:02 10/09/18 12:14 10/09/18 12:47 Blood Gas Specimen Blood arterial Source Arterial Blood 10/09/2018 8:56:10 Date Drawn AM Arterial Blood pH 7.452 H (Temp corrected) Arterial Blood 36.9 pCO2 (Temp correct) Arterial Blood pO2 87.6 (Temp corrected) Arterial Blood 25.2 HCO3 Arterial Blood 1.4 Base Excess Arterial Blood 96.7 Oxygen Saturation Jacinto Test ACCEPTAB Arterial Blood Gas Right Radial Puncture Site Arterial 0.6 Blood Carboxyhemog lobin Arterial Blood 0.3 Methemoglobin Blood Gas A-a O2 82.9 H Differential Oxyhemoglobin 95.8 Percent Blood Gas 37.0 Temperature Blood Gas 16.0 Respiration Rate Blood Gas Actual 17 Respiration Rate Blood Gas Modality VENT - AC FiO2 30.0 Blood Gas Tidal 450.0 Volume Blood Gas Low PEEP 5.0 Setting Blood Gas Notified TM Whom Blood Gas Notified 10/09/2018 9:06:30 Time AM Bedside Glucose 44 *L 135 216 Test 10/09/18 13:11 10/09/18 17:02 10/09/18 20:56 10/10/18 00:42 Bedside Glucose 205 113 73 119 Test 10/10/18 04:34 10/10/18 04:49 Bedside Glucose 125 White Blood Count 19.3 #H Red Blood Count 3.60 L Hemoglobin 10.3 L Hematocrit 33.8 L Mean Corpuscular 93.9 Volume Mean Corpuscular 28.6 L Hemoglobin Mean Corpuscular 30.5 L Hemoglobin Concent Red Cell 20.5 H Distribution Width Platelet Count 193 Mean Platelet 10.2 Volume Immature 2.000 H Granulocytes % Neutrophils % 85.4 H Lymphocytes % 8.7 L Monocytes % 2.0 Eosinophils % 1.5 Basophils % 0.4 Nucleated Red 0.0 Blood Cells % Immature 0.380 H Granulocytes # Neutrophils # 16.5 H Lymphocytes # 1.7 Monocytes # 0.4 Eosinophils # 0.3 Basophils # 0.1 Nucleated Red 0.0 Blood Cells # Sodium Level 134 L Potassium Level 3.9 Chloride Level 101 Carbon Dioxide 23 Level Anion Gap 10 Blood Urea 21 H Nitrogen Creatinine 2.07 H Est Glomerular Filtrat Rate mL/min Glucose Level 123 # Calcium Level 6.4 L Consultation Date/Type/Reason Admit Date/Time Oct 05, 2018 at 07:51 Initial Consult Date 10/05/18 Requesting Provider: YOEL DAVILA Exam/Review of Systems Vital Signs Vitals Vital Signs Date Temp Pulse Resp B/P (MAP) Pulse Ox O2 O2 Flow FiO2 Time Delivery Rate 10/10/18 86 17 127/52 100 05:15 (77) 10/10/18 Mechanical 05:00 Ventilator 10/10/18 30 04:53 10/10/18 97.8 04:00 Intake and Output 10/09/18 10/09/18 10/10/18 1515:00 23:00 07:00 IntakeIntake Total 330 ml 480 ml 30 ml OutputOutput Total 0 ml 0 ml 0 ml BalanceBalance 330 ml 480 ml 30 ml Medications Medications Current Medications Ondansetron HCl (Zofran Inj) 4 mg Q6H PRN IV NAUSEA AND/OR VOMITING; Start 10/05/18 at 09:00 Acetaminophen (Tylenol Liquid) 650 mg Q6H PRN PO PAIN LEVEL 1-3 OR FEVER; Sta rt 10/05/18 at 09:00 Docusate Sodium (Colace) 100 mg Q12H PRN PO CONSTIPATION; Start 10/05/18 at 09:00 Clopidogrel Bisulfate (plaVIX) 75 mg DAILY PO Last administered on 10/09/18 08:35; Admin Dose 75 MG; Start 10/06/18 at 09:00 Folic Acid (Folic Acid) 1 mg DAILY PO Last administered on 10/09/18 08:35; Admin Dose 1 MG; Start 10/06/18 at 09:00 Levothyroxine Sodium (Synthroid) 50 mcg BEFORE BREAKFAST PO Last administered on 10/10/18 06:49; Admin Dose 50 MCG; Start 10/06/18 at 07:00 Multivit/Ca Carb/ B Cmplx/FA/Prenat (Lizzy-Juanpablo) 1 tab DAILY PO Last administered on 10/09/18 08:35; Admin Dose 1 TAB; Start 10/06/18 at 09:00 Polyethylene Glycol (Miralax) 17 gm DAILY PO Last administered on 10/09/18 08:36; Admin Dose 17 GM; Start 10/06/18 at 09:00 Vitamin B Complex/ Vitamin C (Berocca) 1 cap DAILY PO Last administered on 10/09/18 08:36; Admin Dose 1 CAP; Start 10/06/18 at 09:00 Zinc Sulfate (Zinc Sulfate) 220 mg DAILY PO Last administered on 10/09/18 08:36; Admin Dose 220 MG; Start 10/06/18 at 09:00 Eye Lubricant (Artificial Tears Oph) 1 drop TID BOTH EYES Last administered on 10/09/18 20:36; Admin Dose 1 DROP; Start 10/05/18 at 14:00 Linezolid 300 ml @ 300 mls/hr Q12 IVPB Last administered on 10/09/18at 20:36; Admin Dose 300 MLS/HR; Start 10/05/18 at 12:30 Miscellaneous Information (Pending Santyl Order For Wound Care) This patient sams... PRN PRN XX SLOUGH/SOILED; Start 10/05/18 at 13:00 Collagenase (Santyl) 1 applic Q12 TOP Last administered on 10/09/18at 20:36; Admin Dose 1 APPLIC; Start 10/05/18 at 14:00 Collagenase (Santyl) 1 applic PRN PRN TOP PRN; Start 10/05/18 at 15:39 Norepinephrine 250 ml @ 1.875 mls/ hr TITRATE IV Last administered on 10/09/18at 00:37; Admin Dose 1.875 MLS/HR; Start 10/05/18 at 23:00 Sodium Phosphate (Neutra-Phos) 500 mg BID GTB Last administered on 10/09/18at 20:36; Admin Dose 500 MG; Start 10/06/18 at 10:30 Morphine Sulfate (morphine) 6 mg Q4H PRN GTB SEVERE PAIN LEVEL 7-10; Start 10/06/18 at 11:00 Lansoprazole (Prevacid) 30 mg DAILY@06 GTB Last administered on 10/10/18at 06:49; Admin Dose 30 MG; Start 10/07/18 at 06:00 Fluconazole/ Sodium Chloride 50 ml @ 50 mls/hr Q24H IVPB Last administered on 10/09/18at 14:31; Admin Dose 50 MLS/HR; Start 10/06/18 at 14:00 Propofol 100 ml @ 1.818 mls/ hr Q12H IV Last administered on 10/06/18at 21:36; Admin Dose 2.545 MLS/HR; Start 10/06/18 at 21:30 Amikacin Sulfate (Amikacin Iv Per Pharmacy) AMIKACIN PER PHARMACY NOTE XX ; Start 10/08/18 at 15:00 Amikacin Sulfate 230 mg/Sodium Chloride 100.92 ml @ 102 mls/ hr AFTER DIALYSIS IVPB ; Start 10/09/18 at 18:00 Ferrous Sulfate (Feosol Liquid Cup) 300 mg BID GTB Last administered on 10/09/18at 20:35; Admin Dose 300 MG; Start 10/09/18 at 12:00 Diagnostic Test (Pha) (Accu-Chek) 1 ea Q4 XX Last administered on 10/10/18at 04:43; Admin Dose 1 EA; Start 10/09/18 at 13:00 Dextrose/Sodium Chloride 1,000 ml @ 50 mls/hr Q20H IV Last administered on 10/09/18at 21:44; Admin Dose 50 MLS/HR; Start 10/09/18 at 21:30 CIRO ADAMS Oct 10, 2018 07:09
[2018-10-10] MEDS: MULTIVIT/CA CARB/B CMPLX/FA TAB PO SCH (09:18)
[2018-10-10] MEDS: FERROUS SULFATE 60 MG/ML 5ML CUP GTB SCH (09:18)
[2018-10-10] MEDS: POLYETHYLENE GLYCOL 17 GM PACKET PO SCH ×2 (09:18→09:25)
[2018-10-10] MEDS: LINEZOLID 600 MG/D5W (PMX) 300 ML IVPB SCH (09:19)
[2018-10-10] MEDS: BALSAM PERU/CASTOR OIL 60 GM TUBE TOP SCH (09:20)
[2018-10-10] MEDS: COLLAGENASE 5 GM (UD JAR) TOP SCH (09:20)
[2018-10-10] MEDS: ARTIFICIAL TEARS 15 ML OPH BOTH EYES SCH ×3 (09:20→20:43)
[2018-10-10] MEDS: FOLIC ACID 1 MG TAB PO SCH (09:20)
[2018-10-10] MEDS: VITAMIN B COMPLEX/VIT C CAP PO SCH (09:20)
[2018-10-10] MEDS: CLOPIDOGREL 75 MG TAB PO SCH (09:21)
[2018-10-10] MEDS: ZINC SULFATE 220 MG CAP PO SCH (09:21)
[2018-10-10] MEDS: NEUTRA-PHOS 250 MG PACKET GTB SCH (09:21)
[2018-10-10] MEDS: PROPOFOL 100 ML IV SCH (09:25)
--- NOTE | 2018-10-10 09:29 | CONS ---
Date/Time of Note Date/Time of Note DATE: 10/10/18 TIME: 09:26 Assessment/Plan Assessment/Plan Assessment/Plan Chest x-ray was reviewed from today which is showing improvement in bilateral pneumonia as well as pleural effusions. Ventilator setting; AC of 16, tidal volume 450, PEEP of 5, 30% FiO2. Assessment and recommendations; 1. Patient with history of chronic renal failure on hemodialysis admitted with severe sepsis from multiple sources. Multiple organisms isolated from sacral ulcer. Patient also has coagulant negative staph aureus bacteremia. Currently on appropriate antimicrobial regimen. 2. Interval resolution of hypotension. 3. Encephalopathy with interval improvement. Patient however still exhibiting significant neuromuscular weakness. 4. History of hypothyroidism. 5. Diabetes. 6. Improving leukocytosis. 7. Anemia and thrombocytopenia. Continue current supportive care. Patient currently is not in a position to be extubated because of extremely poor spontaneous minute ventilation. H emodialysis per civil engineering design draftsperson. 35 minutes of critical care time was spent evaluating the patient. Result Diagram: 10/10/18 0449 10/10/18 0449 Results 24hrs Laboratory Tests Test 10/09/18 12:02 10/09/18 12:14 10/09/18 12:47 10/09/18 13:11 Bedside Glucose 44 *L 135 216 205 Test 10/09/18 17:02 10/09/18 20:56 10/10/18 00:42 10/10/18 04:34 Bedside Glucose 113 73 119 125 Test 10/10/18 04:49 10/10/18 09:24 White Blood Count 19.3 #H Red Blood Count 3.60 L Hemoglobin 10.3 L Hematocrit 33.8 L Mean Corpuscular Volume 93.9 Mean Corpuscular 28.6 L Hemoglobin Mean Corpuscular 30.5 L Hemoglobin Concent Red Cell Distribution 20.5 H Width Platelet Count 193 Mean Platelet Volume 10.2 Immature Granulocytes % 2.000 H Neutrophils % 85.4 H Lymphocytes % 8.7 L Monocytes % 2.0 Eosinophils % 1.5 Basophils % 0.4 Nucleated Red Blood 0.0 Cells % Immature Granulocytes # 0.380 H Neutrophils # 16.5 H Lymphocytes # 1.7 Monocytes # 0.4 Eosinophils # 0.3 Basophils # 0.1 Nucleated Red Blood 0.0 Cells # Sodium Level 134 L Potassium Level 3.9 Chloride Level 101 Carbon Dioxide Level 23 Anion Gap 10 Blood Urea Nitrogen 21 H Creatinine 2.07 H Est Glomerular Filtrat Rate mL/min Glucose Level 123 # Calcium Level 6.4 L Bedside Glucose 141 Consultation Date/Type/Reason Admit Date/Time Oct 05, 2018 at 07:51 Initial Consult Date 10/05/18 Type of Consult Pulmonary/critical care History of presenting illness; patient is a 78-year-old woman who was transferred to ER from group home with hypotension. Upon further evaluation patient is been diagnosed with bilateral pneumonia as well as UTI with sepsis. Patient has been adequately fluid resuscitated but still requiring Levophed for hypotension. Patient has history of chronic encephalopathy and is currently under sedation. Past medical history; 1. History of dementia and chronic encephalopathy. 2. History of diabetes and hypothyroidism. Medications; reviewed. Patient is currently on Levophed at 11 mics per minute. Propofol at 10 mics per kilogram per minute. Allergies; as outlined above. Social history; not available. Family history; not available. Occupational history; not available. Review of system; unable to be obtained. General exam; elderly woman, orally intubated, sedated, currently in no distress. Requesting Provider: YOEL DAVILA 24 HR Interval Summary Free Text/Dictation Patient's condition remains critical but stable. Patient has improved hemodynamically and is off pressor support. Patient remains awake and re sponsive appropriately. General exam; elderly female, orally intubated, awake and responsive, currently in no distress. Exam/Review of Systems Vital Signs Vitals Vital Signs Date Temp Pulse Resp B/P (MAP) Pulse Ox O2 O2 Flow FiO2 Time Delivery Rate 10/10/18 84 16 157/55 100 08:30 (89) 10/10/18 98.9 Mechanical 08:00 Ventilator 10/10/18 30 04:53 Intake and Output 10/09/18 10/09/18 10/10/18 1515:00 23:00 07:00 IntakeIntake Total 330 ml 882.8125 ml 570 ml OutputOutput Total 0 ml 0 ml 0 ml BalanceBalance 330 ml 882.8125 ml 570 ml Exam H EENT exam; supple neck, no lymphadenopathy. Positive JVD. Orally intubated. Patient has fair dentition. No neck masses. Chest exam; diminished but clear breath sounds. S1-S2 audible, no murmurs. Regular rhythm. Abdomen exam; soft, no organomegaly. Bowel sounds audible. Back examination; dressing applied over sacrum. Extremity exam; no peripheral edema. SUPERVISOR [employer] exam; is awake and responsive. But exhibiting severe generalized weakness. Medications Medications Current Medications Ondansetron HCl (Zofran Inj) 4 mg Q6H PRN IV NAUSEA AND/OR VOMITING; Start 10/05/18 at 09:00 Acetaminophen (Tylenol Liquid) 650 mg Q6H PRN PO PAIN LEVEL 1-3 OR FEVER; Start 10/05/18 at 09:00 Docusate Sodium (Colace) 100 mg Q12H PRN PO CONSTIPATION; Start 10/05/18 at 09:00 Clopidogrel Bisulfate (plaVIX) 75 mg DAILY PO Last administered on 10/10/18 09:21; Admin Dose 75 MG; Start 10/06/18 at 09:00 Folic Acid (Folic Acid) 1 mg DAILY PO Last administered on 10/10/18 09:20; Admin Dose 1 MG; Start 10/06/18 at 09:00 Levothyroxine Sodium (Synthroid) 50 mcg BEFORE BREAKFAST PO Last administered on 10/10/18 06:49; Admin Dose 50 MCG; Start 10/06/18 at 07:00 Multivit/Ca Carb/ B Cmplx/FA/Prenat (Lizzy-Juanpablo) 1 tab DAILY PO Last administered on 10/10/18 09:18; Admin Dose 1 TAB; Start 10/06/18 at 09:00 Polyethylene Glycol (Miralax) 17 gm DAILY PO Last administered on 10/09/18 08:36; Admin Dose 17 GM; Start 10/06/18 at 09:00 Vitamin B Complex/ Vitamin C (Berocca) 1 cap DAILY PO Last administered on 10/10/18 09:20; Admin Dose 1 CAP; Start 10/06/18 at 09:00 Zinc Sulfate (Zinc Sulfate) 220 mg DAILY PO Last administered on 10/10/18 09:21; Admin Dose 220 MG; Start 10/06/18 at 09:00 Eye Lubricant (Artificial Tears Oph) 1 drop TID BOTH EYES Last administered on 10/10/18 09:20; Admin Dose 1 DROP; Start 10/05/18 at 14:00 Linezolid 300 ml @ 300 mls/hr Q12 IVPB Last administered on 10/10/18 09:19; Admin Dose 300 MLS/HR; Start 10/05/18 at 12:30 Miscellaneous Information (Pending Santyl Order For Wound Care) This patient sams... PRN PRN XX SLOUGH/SOILED; Start 10/05/18 at 13:00 Collagenase (Santyl) 1 applic Q12 TOP Last administered on 10/10/18at 09:20; Admin Dose 1 APPLIC; Start 10/05/18 at 14:00 Collagenase (Santyl) 1 applic PRN PRN TOP PRN; Start 10/05/18 at 15:39 Norepinephrine 250 ml @ 1.875 mls/ hr TITRATE IV Last administered on 10/09/18 00:37; Admin Dose 1.875 MLS/HR; Start 10/05/18 at 23:00 Sodium Phosphate (Neutra-Phos) 500 mg BID GTB Last administered on 10/10/18 09:21; Admin Dose 500 MG; Start 10/06/18 at 10:30 Morphine Sulfate (morphine) 6 mg Q4H PRN GTB SEVERE PAIN LEVEL 7-10; Start 10/06/18 at 11:00 Lansoprazole (Prevacid) 30 mg DAILY@06 GTB Last administered on 10/10/18 06:49; Admin Dose 30 MG; Start 10/07/18 at 06:00 Fluconazole/ Sodium Chloride 50 ml @ 50 mls/hr Q24H IVPB Last administered on 10/09/18at 14:31; Admin Dose 50 MLS/HR; Start 10/06/18 at 14:00 Propofol 100 ml @ 1.818 mls/ hr Q12H IV Last administered on 10/06/18at 21:36; Admin Dose 2.545 MLS/HR; Start 10/06/18 at 21:30 Amikacin Sulfate (Amikacin Iv Per Pharmacy) AMIKACIN PER PHARMACY NOTE XX ; Sta rt 10/08/18 at 15:00 Amikacin Sulfate 230 mg/Sodium Chloride 100.92 ml @ 102 mls/ hr AFTER DIALYSIS IVPB ; Start 10/09/18 at 18:00 Ferrous Sulfate (Feosol Liquid Cup) 300 mg BID GTB Last administered on 10/10/18 09:18; Admin Dose 300 MG; Start 10/09/18 at 12:00 Diagnostic Test (Pha) (Accu-Chek) 1 ea Q4 XX Last administered on 10/10/18at 09:24; Admin Dose 1 EA; Start 10/09/18 at 13:00 Dextrose/Sodium Chloride 1,000 ml @ 50 mls/hr Q20H IV Last administered on 10/09/18at 21:44; Admin Dose 50 MLS/HR; Start 10/09/18 at 21:30 VLAD MARTIN Oct 10, 2018 09:29
--- NOTE | 2018-10-10 10:19 | CONS ---
Date/Time of Note Date/Time of Note DATE: 10/10/18 TIME: 10:16 Assessment/Plan Assessment/Plan Assessment/Plan 78 yo Female with 1) Hypoxia with Respiratory Failure 2) Severe Sepsis 3) S/p Cardiac Arrest with ROSC 4) ESRD on HD 5) Anemia, Chronic CKD 6) Hypophosphatemia S/p HD yesterday UF tolerated Off pressors However not candidate for weaning or extubation Pt is DNR, Palliative care consulted Agree with comfort care. Will cont HD until then. Next HD plan for tomorrow. Thank you for the opportunity to participate in the care of Ms Coffman Discussed with ORCHESTRA MUSICIAN. CC time spent >30 min. Result Diagram: 10/10/1844810/10/18448 Results 24hrs Laboratory Tests Test 10/09/18 12:02 10/09/18 12:14 10/09/18 12:47 10/09/18 13:11 Bedside Glucose 44 *L 135 216 205 Test 10/09/18 17:02 10/09/18 20:56 10/10/18 00:42 10/10/18 04:34 Bedside Glucose 113 73 119 125 Test 10/10/18 04:49 10/10/18 09:24 White Blood Count 19.3 #H Red Blood Count 3.60 L Hemoglobin 10.3 L Hematocrit 33.8 L Mean Corpuscular Volume 93.9 Mean Corpuscular 28.6 L Hemoglobin Mean Corpuscular 30.5 L Hemoglobin Concent Red Cell Distribution 20.5 H Width Platelet Count 193 Mean Platelet Volume 10.2 Immature Granulocytes % 2.000 H Neutrophils % 85.4 H Lymphocytes % 8.7 L Monocytes % 2.0 Eosinophils % 1.5 Basophils % 0.4 Nucleated Red Blood 0.0 Cells % Immature Granulocytes # 0.380 H Neutrophils # 16.5 H Lymphocytes # 1.7 Monocytes # 0.4 Eosinophils # 0.3 Basophils # 0.1 Nucleated Red Blood 0.0 Cells # Sodium Level 134 L Potassium Level 3.9 Chloride Level 101 Carbon Dioxide Level 23 Anion Gap 10 Blood Urea Nitrogen 21 H Creatinine 2.07 H Est Glomerular Filtrat Rate mL/min Glucose Level 123 # Calcium Level 6.4 L Bedside Glucose 141 Consultation Date/Type/Reason Admit Date/Time Oct 05, 2018 at 07:51 Initial Consult Date 10/05/18 Type of Consult Nephrology Requesting Provider: YOEL DAVILA 24 HR Interval Summary Free Text/Dictation S/p HD yesterday Subjective hx not possible: pt critical status Constitutional: requiring O2 Exam/Review of Systems Vital Signs Vitals Vital Signs Date Temp Pulse Resp B/P (MAP) Pulse Ox O2 O2 Flow FiO2 Time Delivery Rate 10/10/18 84 16 157/55 100 08:30 (89) 10/10/18 98.3 Mechanical 08:00 Ventilator 10/10/18 30 04:53 Intake and Output 10/09/18 10/09/18 10/10/18 1515:00 23:00 07:00 IntakeIntake Total 330 ml 882.8125 ml 570 ml OutputOutput Total 0 ml 0 ml 0 ml BalanceBalance 330 ml 882.8125 ml 570 ml Exam Constitutional: frail ENMT: mucosa pink and moist Respiratory: crackles/rales, other (vcENT) Cardiovascular: edema Gastrointestinal: soft Neurological: other (SEDATED) Skin: No diaphoresis Medications Medications Current Medications Ondansetron HCl (Zofran Inj) 4 mg Q6H PRN IV NAUSEA AND/OR VOMITING; Start 10/05/18 at 09:00 Acetaminophen (Tylenol Liquid) 650 mg Q6H PRN PO PAIN LEVEL 1-3 OR FEVER; Start 10/05/18 at 09:00 Docusate Sodium (Colace) 100 mg Q12H PRN PO CONSTIPATION; Start 10/05/18 at 09:00 Clopidogrel Bisulfate (plaVIX) 75 mg DAILY PO Last administered on 10/10/18at 09:21; Admin Dose 75 MG; Start 10/06/18 at 09:00 Folic Acid (Folic Acid) 1 mg DAILY PO Last administered on 10/10/18 09:20; Admin Dose 1 MG; Start 10/06/18 at 09:00 Levothyroxine Sodium (Synthroid) 50 mcg BEFORE BREAKFAST PO Last administered on 10/10/18 06:49; Admin Dose 50 MCG; Start 10/06/18 at 07:00 Multivit/Ca Carb/ B Cmplx/FA/Prenat (Lizzy-Juanpablo) 1 tab DAILY PO Last administered on 10/10/18 09:18; Admin Dose 1 TAB; Start 10/06/18 at 09:00 Polyethylene Glycol (Miralax) 17 gm DAILY PO Last administered on 10/09/18 08:36; Admin Dose 17 GM; Start 10/06/18 at 09:00 Vitamin B Complex/ Vitamin C (Berocca) 1 cap DAILY PO Last administered on 10/10/18 09:20; Admin Dose 1 CAP; Start 10/06/18 at 09:00 Zinc Sulfate (Zinc Sulfate) 220 mg DAILY PO Last administered on 10/10/18 09:21; Admin Dose 220 MG; Start 10/06/18 at 09:00 Eye Lubricant (Artificial Tears Oph) 1 drop TID BOTH EYES Last administered on 10/10/18 09:20; Admin Dose 1 DROP; Start 10/05/18 at 14:00 Linezolid 300 ml @ 300 mls/hr Q12 IVPB Last administered on 10/10/18 09:19; Admin Dose 300 MLS/HR; Start 10/05/18 at 12:30 Miscellaneous Information (Pending Santyl Order For Wound Care) This patient sams... PRN PRN XX SLOUGH/SOILED; Start 10/05/18 at 13:00 Collagenase (Santyl) 1 applic Q12 TOP Last administered on 10/10/18 09:20; Admin Dose 1 APPLIC; Start 10/05/18 at 14:00 Collagenase (Santyl) 1 applic PRN PRN TOP PRN; Start 10/05/18 at 15:39 Norepinephrine 250 ml @ 1.875 mls/ hr TITRATE IV Last administered on 10/09/18 00:37; Admin Dose 1.875 MLS/HR; Start 10/05/18 at 23:00 Sodium Phosphate (Neutra-Phos) 500 mg BID GTB Last administered on 10/10/18 09:21; Admin Dose 500 MG; Start 10/06/18 at 10:30 Morphine Sulfate (morphine) 6 mg Q4H PRN GTB SEVERE PAIN LEVEL 7-10; Start 10/06/18 at 11:00 Lansoprazole (Prevacid) 30 mg DAILY@06 GTB Last administered on 10/10/18 06:49; Admin Dose 30 MG; Start 10/07/18 at 06:00 Fluconazole/ Sodium Chloride 50 ml @ 50 mls/hr Q24H IVPB Last administered on 10/09/18 14:31; Admin Dose 50 MLS/HR; Start 10/06/18 at 14:00 Propofol 100 ml @ 1.818 mls/ hr Q12H IV Last administered on 10/06/18at 21:36; Admin Dose 2.545 MLS/HR; Start 10/06/18 at 21:30 Amikacin Sulfate (Amikacin Iv Per Pharmacy) AMIKACIN PER PHARMACY NOTE XX ; Start 10/08/18 at 15:00 Amikacin Sulfate 230 mg/Sodium Chloride 100.92 ml @ 102 mls/ hr AFTER DIALYSIS IVPB ; Start 10/09/18 at 18:00 Ferrous Sulfate (Feosol Liquid Cup) 300 mg BID GTB Last administered on 10/10/18at 09:18; Admin Dose 300 MG; Start 10/09/18 at 12:00 Diagnostic Test (Pha) (Accu-Chek) 1 ea Q4 XX Last administered on 10/10/18at 09:24; Admin Dose 1 EA; Start 10/09/18 at 13:00 Dextrose/Sodium Chloride 1,000 ml @ 50 mls/hr Q20H IV Last administered on 10/09/18at 21:44; Admin Dose 50 MLS/HR; Start 10/09/18 at 21:30 KATHIA SULLIVAN MD Oct 10, 2018 10:19
--- NOTE | 2018-10-10 11:42 | CONS ---
Date/Time of Note Date/Time of Note DATE: 10/10/18 TIME: 11:41 Assessment/Plan Assessment/Plan Hospital Course Patient is a 78-year presents back to [facility] respiratory failure currently intubated in the intensive care unit. Etiology of sepsis possibly urinary tract infection possibly from stage IV decubiti. Patient also has significant comorbid medical problems including end-stage renal disease type 2 diabetes encephalopathy reviewing patient's medical records speaking to patient's critical care nurse patient has at least 3 areas that could be causing her sepsis syndrome 1 bibasilar pneumonia #2 urinary tract infection #3 open unstageable wounds. In spite of that patient was being treated aggressively seen by multiple different subspecialists. Last time I was involved with this patient's care was her last hospitalization that was within the last 2 months. Also comorbid medical problems include a history of type 2 diabetes and end- stage renal disease but essentially patient is dying from multiorgan system failure. Assessment/Plan Spoke with daughter again at approximately [address] Branham has spoke to patient's daughter. She began the conversation with when she will be take her off the ventilator. I am in agreement with Dr. Rosado that patient has poor quality of life and this is at least the second time she has had a similar episode. Family members do not want her to suffer through another rehospitalization in the future and intubation and suffering. They have decided to take her off the ventilator this afternoon when her arrives with and doing well is a well had nothing to complain about. I Result Diagram: 10/10/18 0449 10/10/18 0449 Results 24hrs Laboratory Tests Test 10/09/18 12:02 10/09/18 12:14 10/09/18 12:47 10/09/18 13:11 Bedside Glucose 44 *L 135 216 205 Test 10/09/18 17:02 10/09/18 20:56 10/10/18 00:42 10/10/18 04:34 Bedside Glucose 113 73 119 125 Test 10/10/18 04:49 10/10/18 09:24 White Blood Count 19.3 #H Red Blood Count 3.60 L Hemoglobin 10.3 L Hematocrit 33.8 L Mean Corpuscular Volume 93.9 Mean Corpuscular 28.6 L Hemoglobin Mean Corpuscular 30.5 L Hemoglobin Concent Red Cell Distribution 20.5 H Width Platelet Count 193 Mean Platelet Volume 10.2 Immature Granulocytes % 2.000 H Neutrophils % 85.4 H Lymphocytes % 8.7 L Monocytes % 2.0 Eosinophils % 1.5 Basophils % 0.4 Nucleated Red Blood 0.0 Cells % Immature Granulocytes # 0.380 H Neutrophils # 16.5 H Lymphocytes # 1.7 Monocytes # 0.4 Eosinophils # 0.3 Basophils # 0.1 Nucleated Red Blood 0.0 Cells # Sodium Level 134 L Potassium Level 3.9 Chloride Level 101 Carbon Dioxide Level 23 Anion Gap 10 Blood Urea Nitrogen 21 H Creatinine 2.07 H Est Glomerular Filtrat Rate mL/min Glucose Level 123 # Calcium Level 6.4 L Bedside Glucose 141 Consultation Date/Type/Reason Admit Date/Time Oct 05, 2018 at 07:51 Hx of Present Illness Patient is a 78-year presents back to [facility] respiratory failure currently intubated in the intensive care unit. Etiology of sepsis possibly urinary tract infection possibly from stage IV decubiti. Patient also has significant comorbid medical problems including end-stage renal disease type 2 diabetes encephalopathy reviewing patient's medical records speaking to patient's critical care nurse patient has at least 3 areas that could be causing her sepsis syndrome 1 bibasilar pneumonia #2 urinary tract infection #3 open unstageable wounds. In spite of that patient was being treated aggressively seen by multiple different subspecialists. Last time I was involved with this patient's care was her last hospitalization that was within the last 2 months. Also comorbid medical problems include a history of type 2 diabetes and end- stage renal disease but essentially patient is dying from multiorgan system failure. Past Medical History Medical History: congestive heart failure, coronary artery disease, diabetes, hypertension, renal disease (ESRD) Medications Current Medications Ondansetron HCl (Zofran Inj) 4 mg Q6H PRN IV NAUSEA AND/OR VOMITING; Start 10/05/18 at 09:00 Acetaminophen (Tylenol Liquid) 650 mg Q6H PRN PO PAIN LEVEL 1-3 OR FEVER; Start 10/05/18 at 09:00 Docusate Sodium (Colace) 100 mg Q12H PRN PO CONSTIPATION; Start 10/05/18 at 09:00 Clopidogrel Bisulfate (plaVIX) 75 mg DAILY PO Last administered on 10/10/18at 09:21; Admin Dose 75 MG; Start 10/06/18 at 09:00 Folic Acid (Folic Acid) 1 mg DAILY PO Last administered on 10/10/18 09:20; Admin Dose 1 MG; Start 10/06/18 at 09:00 Levothyroxine Sodium (Synthroid) 50 mcg BEFORE BREAKFAST PO Last administered on 10/10/18 06:49; Admin Dose 50 MCG; Start 10/06/18 at 07:00 Multivit/Ca Carb/ B Cmplx/FA/Prenat (Lizzy-Juanpablo) 1 tab DAILY PO Last administered on 10/10/18 09:18; Admin Dose 1 TAB; Start 10/06/18 at 09:00 Polyethylene Glycol (Miralax) 17 gm DAILY PO Last administered on 10/09/18 08:36; Admin Dose 17 GM; Start 10/06/18 at 09:00 Vitamin B Complex/ Vitamin C (Berocca) 1 cap DAILY PO Last administered on 10/10/18 09:20; Admin Dose 1 CAP; Start 10/06/18 at 09:00 Zinc Sulfate (Zinc Sulfate) 220 mg DAILY PO Last administered on 10/10/18 09:21; Admin Dose 220 MG; Start 10/06/18 at 09:00 Eye Lubricant (Artificial Tears Oph) 1 drop TID BOTH EYES Last administered on 10/10/18 09:20; Admin Dose 1 DROP; Start 10/05/18 at 14:00 Linezolid 300 ml @ 300 mls/hr Q12 IVPB Last administered on 10/10/18 09:19; Admin Dose 300 MLS/HR; Start 10/05/18 at 12:30 Miscellaneous Information (Pending Santyl Order For Wound Care) This patient sams... PRN PRN XX SLOUGH/SOILED; Start 10/05/18 at 13:00 Collagenase (Santyl) 1 applic Q12 TOP Last administered on 10/10/18 09:20; Admin Dose 1 APPLIC; Start 10/05/18 at 14:00 Collagenase (Santyl) 1 applic PRN PRN TOP PRN; Start 10/05/18 at 15:39 Norepinephrine 250 ml @ 1.875 mls/ hr TITRATE IV Last administered on 10/09/18 00:37; Admin Dose 1.875 MLS/HR; Start 10/05/18 at 23:00 Sodium Phosphate (Neutra-Phos) 500 mg BID GTB Last administered on 10/10/18 09:21; Admin Dose 500 MG; Start 10/06/18 at 10:30 Morphine Sulfate (morphine) 6 mg Q4H PRN GTB SEVERE PAIN LEVEL 7-10; Start 10/06/18 at 11:00 Lansoprazole (Prevacid) 30 mg DAILY@06 GTB Last administered on 10/10/18 06:49; Admin Dose 30 MG; Start 10/07/18 at 06:00 Fluconazole/ Sodium Chloride 50 ml @ 50 mls/hr Q24H IVPB Last administered on 10/09/18 14:31; Admin Dose 50 MLS/HR; Start 10/06/18 at 14:00 Propofol 100 ml @ 1.818 mls/ hr Q12H IV Last administered on 10/06/18 21:36; Admin Dose 2.545 MLS/HR; Start 10/06/18 at 21:30 Amikacin Sulfate (Amikacin Iv Per Pharmacy) AMIKACIN PER PHARMACY NOTE XX ; Start 10/08/18 at 15:00 Amikacin Sulfate 230 mg/Sodium Chloride 100.92 ml @ 102 mls/ hr AFTER DIALYSIS IVPB ; Start 10/09/18 at 18:00 Ferrous Sulfate (Feosol Liquid Cup) 300 mg BID GTB Last administered on 10/10/18 09:18; Admin Dose 300 MG; Start 10/09/18 at 12:00 Diagnostic Test (Pha) (Accu-Chek) 1 ea Q4 XX Last administered on 10/10/18 09:24; Admin Dose 1 EA; Start 10/09/18 at 13:00 Dextrose/Sodium Chloride 1,000 ml @ 50 mls/hr Q20H IV Last administered on 10/09/18 21:44; Admin Dose 50 MLS/HR; Start 10/09/18 at 21:30 Allergies: Coded Allergies: codeine (Verified Allergy, Mild, ANXIETY, 10/09/18) milk (Verified Allergy, Mild, GAS, 10/09/18) albuterol (Verified Allergy, Unknown, 10/09/18) amlodipine (Verified Allergy, Unknown, 10/09/18) clonidine (Verified Allergy, Unknown, 10/09/18) diazepam (Verified Allergy, Unknown, 10/09/18) diphenhydramine (Verified Allergy, Unknown, 10/09/18) melatonin (Verified Allergy, Unknown, 10/09/18) Uncoded Allergies: HEPARIN SODIUM (Allergy, Unknown, 09/08/18) NIFEDIPINE ER (Allergy, Unknown, 09/08/18) Past Surgical History Past Surgical Hx: other (Unknown) Social History Alcohol Use: none Smoking Status: Never smoker Drug Use: none Exam/Review of Systems Vital Signs Vitals Vital Signs Date Temp Pulse Resp B/P (MAP) Pulse Ox O2 O2 Flow FiO2 Time Delivery Rate 10/10/18 84 16 157/55 100 08:30 (89) 10/10/18 98.3 Mechanical 08:00 Ventilator 10/10/18 30 04:53 Intake and Output 10/09/18 10/09/18 10/10/18 1515:00 23:00 07:00 IntakeIntake Total 330 ml 882.8125 ml 570 ml OutputOutput Total 0 ml 0 ml 0 ml BalanceBalance 330 ml 882.8125 ml 570 ml Medications Medications Current Medications Ondansetron HCl (Zofran Inj) 4 mg Q6H PRN IV NAUSEA AND/OR VOMITING; Start 10/05/18 at 09:00 Acetaminophen (Tylenol Liquid) 650 mg Q6H PRN PO PAIN LEVEL 1-3 OR FEVER; Start 10/05/18 at 09:00 Docusate Sodium (Colace) 100 mg Q12H PRN PO CONSTIPATION; Start 10/05/18 at 09:00 Clopidogrel Bisulfate (plaVIX) 75 mg DAILY PO Last administered on 10/10/18 09:21; Admin Dose 75 MG; Start 10/06/18 at 09:00 Folic Acid (Folic Acid) 1 mg DAILY PO Last administered on 10/10/18 09:20; Admin Dose 1 MG; Start 10/06/18 at 09:00 Levothyroxine Sodium (Synthroid) 50 mcg BEFORE BREAKFAST PO Last administered on 10/10/18at 06:49; Admin Dose 50 MCG; Start 10/06/18 at 07:00 Multivit/Ca Carb/ B Cmplx/FA/Prenat (Lizzy-Juanpablo) 1 tab DAILY PO Last administered on 10/10/18 09:18; Admin Dose 1 TAB; Start 10/06/18 at 09:00 Polyethylene Glycol (Miralax) 17 gm DAILY PO Last administered on 10/09/18 08:36; Admin Dose 17 GM; Start 10/06/18 at 09:00 Vitamin B Complex/ Vitamin C (Berocca) 1 cap DAILY PO Last administered on 10/10/18 09:20; Admin Dose 1 CAP; Start 10/06/18 at 09:00 Zinc Sulfate (Zinc Sulfate) 220 mg DAILY PO Last administered on 10/10/18 09:21; Admin Dose 220 MG; Start 10/06/18 at 09:00 Eye Lubricant (Artificial Tears Oph) 1 drop TID BOTH EYES Last administered on 10/10/18 09:20; Admin Dose 1 DROP; Start 10/05/18 at 14:00 Linezolid 300 ml @ 300 mls/hr Q12 IVPB Last administered on 10/10/18 09:19; Admin Dose 300 MLS/HR; Start 10/05/18 at 12:30 Miscellaneous Information (Pending Santyl Order For Wound Care) This patient sams... PRN PRN XX SLOUGH/SOILED; Start 10/05/18 at 13:00 Collagenase (Santyl) 1 applic Q12 TOP Last administered on 10/10/18 09:20; Admin Dose 1 APPLIC; Start 10/05/18 at 14:00 Collagenase (Santyl) 1 applic PRN PRN TOP PRN; Start 10/05/18 at 15:39 Norepinephrine 250 ml @ 1.875 mls/ hr TITRATE IV Last administered on 10/09/18 00:37; Admin Dose 1.875 MLS/HR; Start 10/05/18 at 23:00 Sodium Phosphate (Neutra-Phos) 500 mg BID GTB Last administered on 10/10/18 09:21; Admin Dose 500 MG; Start 10/06/18 at 10:30 Morphine Sulfate (morphine) 6 mg Q4H PRN GTB SEVERE PAIN LEVEL 7-10; Start 10/06/18 at 11:00 Lansoprazole (Prevacid) 30 mg DAILY@06 GTB Last administered on 10/10/18 06:49; Admin Dose 30 MG; Start 10/07/18 at 06:00 Fluconazole/ Sodium Chloride 50 ml @ 50 mls/hr Q24H IVPB Last administered on 10/09/18 14:31; Admin Dose 50 MLS/HR; Start 10/06/18 at 14:00 Propofol 100 ml @ 1.818 mls/ hr Q12H IV Last administered on 10/06/18 21:36; Admin Dose 2.545 MLS/HR; Start 10/06/18 at 21:30 Amikacin Sulfate (Amikacin Iv Per Pharmacy) AMIKACIN PER PHARMACY NOTE XX ; Start 10/08/18 at 15:00 Amikacin Sulfate 230 mg/Sodium Chloride 100.92 ml @ 102 mls/ hr AFTER DIALYSIS IVPB ; Start 10/09/18 at 18:00 Ferrous Sulfate (Feosol Liquid Cup) 300 mg BID GTB Last administered on 09:18; Admin Dose 300 MG; Start 10/09/18 at 12:00 Diagnostic Test (Pha) (Accu-Chek) 1 ea Q4 XX Last administered on 10/10/18 09:24; Admin Dose 1 EA; Start 10/09/18 at 13:00 Dextrose/Sodium Chloride 1,000 ml @ 50 mls/hr Q20H IV Last administered on 10/09/18 21:44; Admin Dose 50 MLS/HR; Start 10/09/18 at 21:30 CIRO ADAMS Oct 10, 2018 11:42
--- NOTE | 2018-10-10 12:19 | CONS ---
Date/Time of Note Date/Time of Note DATE: 10/10/18 TIME: 12:17 Assessment/Plan Assessment/Plan Hospital Course No acute events patient looks comfortable on vent no fevers overnight WBC today 19.3 H&H 10.3 and 33.8 platelets 193 neutrophils 85.4 Sacral wound culture grew Klebsiella pneumoniae ESBL, MRSA Corynebacterium species, repeat blood cultures negative Microbiology: Blood culture on admission grew Proteus and coag negative staph species, rurine culture positive for Germania albicans. Sacral wound culture grew Klebsiella pneumoniae ESBL, MRSA Corynebacterium species, repeat blood cultures negative Antimicrobials: Fluconazole, Amikacin, Zyvox Indwelling: Endotracheal tube NG tube Teixeira catheter, right IJ permacath, left IJ triple-lumen catheter. Physical examination: This is a chronically ill-appearing wasted elderly woman who is intubated in no distress. Head atraumatic normocephalic. Neck is camarena pple. Chest rise symmetrical, breath sounds diminished bases. Heart: S1-S2. Abdomen soft bowel sounds hypoactive. Extremities cyanotic mottled Assessment: 1. Severe sepsis with shock 2. Polymicrobial bacteremia, rule out line sepsis 3. Germania albicans UTI 4. Bilateral healthcare associated pneumonia, possibly aspirated 5. Unstageable sacral decub 6. End-stage renal disease, hemodialysis dependent 7. Diabetes 8. History of right patellar fracture complicated by MRSA infected hardware, removed in May [address] Hedrick Plan: Clinically unchanged, continue present care, patient is DNR status, possible terminal extubation today Result Diagram: 10/10/18 0449 10/10/18 0449 Results 24hrs Laboratory Tests Test 10/09/18 12:47 10/09/18 13:11 10/09/18 17:02 10/09/18 20:56 Bedside Glucose 216 205 113 73 Test 10/10/18 00:42 10/10/18 04:34 10/10/18 04:49 10/10/18 09:24 Bedside Glucose 119 125 141 White Blood Count 19.3 #H Red Blood Count 3.60 L Hemoglobin 10.3 L Hematocrit 33.8 L Mean Corpuscular Volume 93.9 Mean Corpuscular 28.6 L Hemoglobin Mean Corpuscular 30.5 L Hemoglobin Concent Red Cell Distribution 20.5 H Width Platelet Count 193 Mean Platelet Volume 10.2 Immature Granulocytes % 2.000 H Neutrophils % 85.4 H Lymphocytes % 8.7 L Monocytes % 2.0 Eosinophils % 1.5 Basophils % 0.4 Nucleated Red Blood 0.0 Cells % Immature Granulocytes # 0.380 H Neutrophils # 16.5 H Lymphocytes # 1.7 Monocytes # 0.4 Eosinophils # 0.3 Basophils # 0.1 Nucleated Red Blood 0.0 Cells # Sodium Level 134 L Potassium Level 3.9 Chloride Level 101 Carbon Dioxide Level 23 Anion Gap 10 Blood Urea Nitrogen 21 H Creatinine 2.07 H Est Glomerular Filtrat Rate mL/min Glucose Level 123 # Calcium Level 6.4 L Consultation Date/Type/Reason Admit Date/Time Oct 05, 2018 at 07:51 Initial Consult Date 10/05/18 Type of Consult id Requesting Provider: YOEL DAVILA Exam/Review of Systems Vital Signs Vitals Vital Signs Date Temp Pulse Resp B/P (MAP) Pulse Ox O2 O2 Flow FiO2 Time Delivery Rate 10/10/18 84 16 157/55 100 08:30 (89) 10/10/18 98.3 Mechanical 08:00 Ventilator 10/10/18 30 04:53 Intake and Output 10/09/18 10/09/18 10/10/18 1515:00 23:00 07:00 IntakeIntake Total 330 ml 882.8125 ml 570 ml OutputOutput Total 0 ml 0 ml 0 ml BalanceBalance 330 ml 882.8125 ml 570 ml Medications Medications Current Medications Ondansetron HCl (Zofran Inj) 4 mg Q6H PRN IV NAUSEA AND/OR VOMITING; Start 10/05/18 at 09:00 Acetaminophen (Tylenol Liquid) 650 mg Q6H PRN PO PAIN LEVEL 1-3 OR FEVER; Start 10/05/18 at 09:00 Docusate Sodium (Colace) 100 mg Q12H PRN PO CONSTIPATION; Start 10/05/18 at 09:00 Clopidogrel Bisulfate (plaVIX) 75 mg DAILY PO Last administered on 10/10/18at 09:21; Admin Dose 75 MG; Start 10/06/18 at 09:00 Folic Acid (Folic Acid) 1 mg DAILY PO Last administered on 10/10/18at 09:20; Admin Dose 1 MG; Start 10/06/18 at 09:00 Levothyroxine Sodium (Synthroid) 50 mcg BEFORE BREAKFAST PO Last administered on 1/8/19at 06:49; Admin Dose 50 MCG; Start 10/06/18 at 07:00 Multivit/Ca Carb/ B Cmplx/FA/Prenat (Lizzy-Juanpablo) 1 tab DAILY PO Last administered on 10/10/18 09:18; Admin Dose 1 TAB; Start 10/06/18 at 09:00 Polyethylene Glycol (Miralax) 17 gm DAILY PO Last administered on 10/09/18 08:36; Admin Dose 17 GM; Start 10/06/18 at 09:00 Vitamin B Complex/ Vitamin C (Berocca) 1 cap DAILY PO Last administered on 10/10/18 09:20; Admin Dose 1 CAP; Start 10/06/18 at 09:00 Zinc Sulfate (Zinc Sulfate) 220 mg DAILY PO Last administered on 10/10/18 09:21; Admin Dose 220 MG; Start 10/06/18 at 09:00 Eye Lubricant (Artificial Tears Oph) 1 drop TID BOTH EYES Last administered on 10/10/18 09:20; Admin Dose 1 DROP; Start 10/05/18 at 14:00 Linezolid 300 ml @ 300 mls/hr Q12 IVPB Last administered on 10/10/18 09:19; Admin Dose 300 MLS/HR; Start 10/05/18 at 12:30 Miscellaneous Information (Pending Santyl Order For Wound Care) This patient sams... PRN PRN XX SLOUGH/SOILED; Start 10/05/18 at 13:00 Collagenase (Santyl) 1 applic Q12 TOP Last administered on 10/10/18 09:20; Admin Dose 1 APPLIC; Start 10/05/18 at 14:00 Collagenase (Santyl) 1 applic PRN PRN TOP PRN; Start 10/05/18 at 15:39 Norepinephrine 250 ml @ 1.875 mls/ hr TITRATE IV Last administered on 10/09/18 00:37; Admin Dose 1.875 MLS/HR; Start 10/05/18 at 23:00 Sodium Phosphate (Neutra-Phos) 500 mg BID GTB Last administered on 10/10/18 09:21; Admin Dose 500 MG; Start 10/06/18 at 10:30 Morphine Sulfate (morphine) 6 mg Q4H PRN GTB SEVERE PAIN LEVEL 7-10; Start 10/06/18 at 11:00 Lansoprazole (Prevacid) 30 mg DAILY@06 GTB Last administered on 10/10/18at 06:49; Admin Dose 30 MG; Start 10/07/18 at 06:00 Fluconazole/ Sodium Chloride 50 ml @ 50 mls/hr Q24H IVPB Last administered on 10/09/18at 14:31; Admin Dose 50 MLS/HR; Start 10/06/18 at 14:00 Propofol 100 ml @ 1.818 mls/ hr Q12H IV Last administered on 10/06/18at 21:36; Admin Dose 2.545 MLS/HR; Start 10/06/18 at 21:30 Amikacin Sulfate (Amikacin Iv Per Pharmacy) AMIKACIN PER PHARMACY NOTE XX ; Start 10/08/18 at 15:00 Amikacin Sulfate 230 mg/Sodium Chloride 100.92 ml @ 102 mls/ hr AFTER DIALYSIS IVPB ; Start 10/09/18 at 18:00 Ferrous Sulfate (Feosol Liquid Cup) 300 mg BID GTB Last administered on 10/10/18at 09:18; Admin Dose 300 MG; Start 10/09/18 at 12:00 Diagnostic Test (Pha) (Accu-Chek) 1 ea Q4 XX Last administered on 10/10/18 09:24; Admin Dose 1 EA; Start 10/09/18 at 13:00 Dextrose/Sodium Chloride 1,000 ml @ 50 mls/hr Q20H IV Last administered on 10/09/18at 21:44; Admin Dose 50 MLS/HR; Start 10/09/18 at 21:30 CARINE GOMEZ NP Oct 10, 2018 12:19
--- NOTE | 2018-10-10 13:30 | PN ---
Date/Time of Note Date/Time of Note DATE: 10/10/18 TIME: 13:29 Assessment/Plan VTE Prophylaxis Risk score (from Ns)>0 risk: 16 [place]CD applied [place]from [facility] [place] Yes Pharmacological prophylaxis: heparin Lines/Catheters IV Catheter Type (from [facility]): Permacath Urinary Cath still in place: No Assessment/Plan Hospital Course 78 yo female with h/o ESRD, PAD, DMII, very debilitated who presents wtih septic shock and mulitorgain failure - Continue life support for now. This patient is at advanced state of illness with poor baseline quality of life, I know her from previously. She is now in shock and on life support without a good quality of life to return to. I discussed grave prognosis with her daughter and that we are unable to wean her from ventilator after 1 week. She is now in agreement for comfort care to be initiated later today Result Diagram: 10/10/18 0449 10/10/18 0449 Results 24hrs Laboratory Tests Test 10/09/18 17:02 10/09/18 20:56 10/10/18 00:42 10/10/18 04:34 Bedside Glucose 113 73 119 125 Test 10/10/18 04:49 10/10/18 09:24 White Blood Count 19.3 #H Red Blood Count 3.60 L Hemoglobin 10.3 L Hematocrit 33.8 L Mean Corpuscular Volume 93.9 Mean Corpuscular 28.6 L Hemoglobin Mean Corpuscular 30.5 L Hemoglobin Concent Red Cell Distribution 20.5 H Width Platelet Count 193 Mean Platelet Volume 10.2 Immature Granulocytes % 2.000 H Neutrophils % 85.4 H Lymphocytes % 8.7 L Monocytes % 2.0 Eosinophils % 1.5 Basophils % 0.4 Nucleated Red Blood 0.0 Cells % Immature Granulocytes # 0.380 H Neutrophils # 16.5 H Lymphocytes # 1.7 Monocytes # 0.4 Eosinophils # 0.3 Basophils # 0.1 Nucleated Red Blood 0.0 Cells # Sodium Level 134 L Potassium Level 3.9 Chloride Level 101 Carbon Dioxide Level 23 Anion Gap 10 Blood Urea Nitrogen 21 H Creatinine 2.07 H Est Glomerular Filtrat Rate mL/min Glucose Level 123 # Calcium Level 6.4 L Bedside Glucose 141 Subjective 24 Hr Interval Summary Free Text/Dictation Unable to be weaned from ventilator Discussed at length with daughter. Agree on terminal extubation later today Exam/Review of Systems Vital Signs Vitals Vital Signs Date Temp Pulse Resp B/P (MAP) Pulse Ox O2 O2 Flow FiO2 Time Delivery Rate 10/10/18 88 17 123/50 99 Mechanical 13:00 (74) Ventilator 10/10/18 97.6 12:00 10/10/18 30 04:53 Intake and Output 10/09/18 10/09/18 10/10/18 1414:59 22:59 06:59 IntakeIntake Total 320 ml 830.9375 ml 581.875 ml OutputOutput Total 0 ml 0 ml 0 ml BalanceBalance 320 ml 830.9375 ml 581.875 ml Medications Medications Current Medications Ondansetron HCl (Zofran Inj) 4 mg Q6H PRN IV NAUSEA AND/OR VOMITING; Start 10/05/18 at 09:00 Acetaminophen (Tylenol Liquid) 650 mg Q6H PRN PO PAIN LEVEL 1-3 OR FEVER; Start 10/05/18 at 09:00 Docusate Sodium (Colace) 100 mg Q12H PRN PO CONSTIPATION; Start 10/05/18 at 09:00 Clopidogrel Bisulfate (plaVIX) 75 mg DAILY PO Last administered on 10/10/18 09:21; Admin Dose 75 MG; Start 10/06/18 at 09:00 Folic Acid (Folic Acid) 1 mg DAILY PO Last administered on 10/10/18 09:20; Admin Dose 1 MG; Start 10/06/18 at 09:00 Levothyroxine Sodium (Synthroid) 50 mcg BEFORE BREAKFAST PO Last administered on 10/10/18at 06:49; Admin Dose 50 MCG; Start 10/06/18 at 07:00 Multivit/Ca Carb/ B Cmplx/FA/Prenat (Lizzy-Juanpablo) 1 tab DAILY PO Last administered on 10/10/18 09:18; Admin Dose 1 TAB; Start 10/06/18 at 09:00 Polyethylene Glycol (Miralax) 17 gm DAILY PO Last administered on 10/09/18at 08:36; Admin Dose 17 GM; Start 10/06/18 at 09:00 Vitamin B Complex/ Vitamin C (Berocca) 1 cap DAILY PO Last administered on 10/10/18 09:20; Admin Dose 1 CAP; Start 10/06/18 at 09:00 Zinc Sulfate (Zinc Sulfate) 220 mg DAILY PO Last administered on 10/10/18 09:21; Admin Dose 220 MG; Start 10/06/18 at 09:00 Eye Lubricant (Artificial Tears Oph) 1 drop TID BOTH EYES Last administered on 10/10/18 09:20; Admin Dose 1 DROP; Start 10/05/18 at 14:00 Linezolid 300 ml @ 300 mls/hr Q12 IVPB Last administered on 10/10/18 09:19; Admin Dose 300 MLS/HR; Start 10/05/18 at 12:30 Miscellaneous Information (Pending Santyl Order For Wound Care) This patient sams... PRN PRN XX SLOUGH/SOILED; Start 10/05/18 at 13:00 Collagenase (Santyl) 1 applic Q12 TOP Last administered on 10/10/18 09:20; Admin Dose 1 APPLIC; Start 10/05/18 at 14:00 Collagenase (Santyl) 1 applic PRN PRN TOP PRN; Start 10/05/18 at 15:39 Norepinephrine 250 ml @ 1.875 mls/ hr TITRATE IV Last administered on 10/09/18 00:37; Admin Dose 1.875 MLS/HR; Start 10/05/18 at 23:00 Sodium Phosphate (Neutra-Phos) 500 mg BID GTB Last administered on 10/10/18 09:21; Admin Dose 500 MG; Start 10/06/18 at 10:30 Morphine Sulfate (morphine) 6 mg Q4H PRN GTB SEVERE PAIN LEVEL 7-10; Start 10/06/18 at 11:00 Lansoprazole (Prevacid) 30 mg DAILY@06 GTB Last administered on 10/10/18 06:49; Admin Dose 30 MG; Start 10/07/18 at 06:00 Fluconazole/ Sodium Chloride 50 ml @ 50 mls/hr Q24H IVPB Last administered on 10/09/18 14:31; Admin Dose 50 MLS/HR; Start 10/06/18 at 14:00 Propofol 100 ml @ 1.818 mls/ hr Q12H IV Last administered on 10/06/18 21:36; Admin Dose 2.545 MLS/HR; Start 10/06/18 at 21:30 Amikacin Sulfate (Amikacin Iv Per Pharmacy) AMIKACIN PER PHARMACY NOTE XX ; Start 10/08/18 at 15:00 Amikacin Sulfate 230 mg/Sodium Chloride 100.92 ml @ 102 mls/ hr AFTER DIALYSIS IVPB ; Start 10/09/18 at 18:00 Ferrous Sulfate (Feosol Liquid Cup) 300 mg BID GTB Last administered on 10/10/18at 09:18; Admin Dose 300 MG; Start 10/09/18 at 12:00 Diagnostic Test (Pha) (Accu-Chek) 1 ea Q4 XX Last administered on 10/10/18 09:24; Admin Dose 1 EA; Start 10/09/18 at 13:00 Dextrose/Sodium Chloride 1,000 ml @ 50 mls/hr Q20H IV Last administered on 10/09/18at 21:44; Admin Dose 50 MLS/HR; Start 10/09/18 at 21:30 ADITI BOWDEN MD Oct 10, 2018 13:30
[2018-10-10] MEDS: FLUCONAZOLE 100 MG/50 ML (PMX) 50 ML IVPB SCH (15:11)
[2018-10-10] MEDS: morphine (DRIP) 100 MG/100 ML 100 ML IV SCH (17:56)
[2018-10-10] MEDS: LORAZEPAM 4 MG/ML VIAL IV PRN (20:43)
[2018-10-11] VITALS: PULSE 107
[2018-10-11 00:15] VITALS: BP 124/56; PULSE 104; RESP 15
[2018-10-11] MEDS: morphine (DRIP) 100 MG/100 ML 100 ML IV SCH ×2 (05:19→11:43)
[2018-10-11 08:00] VITALS: BP 107/53; PULSE 81; RESP 16
[2018-10-11] MEDS: ARTIFICIAL TEARS 15 ML OPH BOTH EYES SCH ×2 (09:15→14:16)
--- NOTE | 2018-10-11 09:32 | CONS ---
Date/Time of Note Date/Time of Note DATE: 10/11/18 TIME: 09:29 Assessment/Plan Assessment/Plan Assessment/Plan 78 yo Female with 1) Hypoxia with Respiratory Failure 2) Severe Sepsis 3) S/p Cardiac Arrest with ROSC 4) ESRD on HD 5) Anemia, Chronic CKD 6) Hypophosphatemia 7) Comfort Care Pt is now extubated Comfort care No further HD treatments Result Diagram: 10/10/18 0449 10/10/18 0449 Results 24hrs Laboratory Tests Test 10/10/18 15:12 Bedside Glucose 174 Consultation Date/Type/Reason Admit Date/Time Oct 05, 2018 at 07:51 Initial Consult Date 10/05/18 Type of Consult Nephrology Requesting Provider: YOEL DAVILA 24 HR Interval Summary Free Text/Dictation Family agreed to comfort care pt started on morphine drip Extubated and transferred out of ICU. Exam/Review of Systems Vital Signs Vitals Vital Signs Date Temp Pulse Resp B/P (MAP) Pulse Ox O2 O2 Flow FiO2 Time Delivery Rate 10/11/18 3.0 08:06 10/11/18 Nasal 02:00 Cannula 10/11/18 98.0 104 15 124/56 94 00:15 (78) 10/10/18 30 19:54 Intake and Output 10/10/18 10/10/18 10/11/18 1515:00 23:00 07:00 IntakeIntake Total 930 ml 199.06 ml 70.94 ml OutputOutput Total 0 ml 0 ml BalanceBalance 930 ml 199.06 ml 70.94 ml Exam Constitutional: No distress ENMT: No intubated Respiratory: No labored breathing Neurological: unresponsive Medications Medications Current Medications Eye Lubricant (Artificial Tears Oph) 1 drop TID BOTH EYES Last administered on 10/11/18at 09:15; Admin Dose 1 DROP; Start 10/05/18 at 14:00 Morphine Sulfate/ Sodium Chloride 100 ml @ 1 mls/hr TITRATE IV Last administered on 10/11/18at 05:19; Admin Dose 11 MLS/HR; Start 10/10/18 at 17:30 Lorazepam (Ativan) 1 mg Q1H PRN IV AGITATION/ANXIETY Last administered on 10/10/18at 20:43; Admin Dose 1 MG; Start 10/10/18 at 16:53 KATHIA SULLIVAN MD Oct 11, 2018 09:32
--- NOTE | 2018-10-11 10:22 | CONS ---
Date/Time of Note Date/Time of Note DATE: 10/11/18 TIME: 10:20 Assessment/Plan Assessment/Plan Hospital Course Patient is a 78-year presents back to [facility] respiratory failure currently intubated in the intensive care unit. Etiology of sepsis possibly urinary tract infection possibly from stage IV decubiti. Patient also has significant comorbid medical problems including end-stage renal disease type 2 diabetes encephalopathy reviewing patient's medical records speaking to patient's critical care nurse patient has at least 3 areas that could be causing her sepsis syndrome 1 bibasilar pneumonia #2 urinary tract infection #3 open unstageable wounds. In spite of that patient was being treated aggressively seen by multiple different subspecialists. Last time I was involved with this patient's care was her last hospitalization that was within the last 2 months. Also comorbid medical problems include a history of type 2 diabetes and end- stage renal disease but essentially patient is dying from multiorgan system failure. Assessment/Plan Patient has agonal respirations at this time she is on 7 mg of morphine per hour excellent nursing care. Family members are on their way to be with the patient anticipates she will very soon. Continue to support family members. Result Diagram: 10/10/18 0449 10/10/18 0449 Results 24hrs Laboratory Tests Test 10/10/18 15:12 Bedside Glucose 174 Consultation Date/Type/Reason Admit Date/Time Oct 05, 2018 at 07:51 Hx of Present Illness Patient is a 78-year presents back to [facility] respiratory failure currently intubated in the intensive care unit. Etiology of sepsis possibly urinary tract infection possibly from stage IV decubiti. Patient also has significant comorbid medical problems including end-stage renal disease type 2 diabetes encephalopathy reviewing patient's medical records speaking to patient's critical care nurse patient has at least 3 areas that could be causing her sepsis syndrome 1 bibasilar pneumonia #2 urinary tract infection #3 open unstageable wounds. In spite of that patient was being treated aggressively seen by multiple different subspecialists. Last time I was involved with this patient's care was her last hospitalization that was within the last 2 months. Also comorbid medical problems include a history of type 2 diabetes and end- stage renal disease but essentially patient is dying from multiorgan system failure. Past Medical History Medical History: congestive heart failure, coronary artery disease, diabetes, hypertension, renal disease (ESRD) Medications Current Medications Eye Lubricant (Artificial Tears Oph) 1 drop TID BOTH EYES Last administered on 10/11/18at 09:15; Admin Dose 1 DROP; Start 10/05/18 at 14:00 Morphine Sulfate/ Sodium Chloride 100 ml @ 1 mls/hr TITRATE IV Last administered on 10/11/18at 05:19; Admin Dose 11 MLS/HR; Start 10/10/18 at 17:30 Lorazepam (Ativan) 1 mg Q1H PRN IV AGITATION/ANXIETY Last administered on 10/10/18at 20:43; Admin Dose 1 MG; Start 10/10/18 at 16:53 Allergies: Coded Allergies: codeine (Verified Allergy, Mild, ANXIETY, 10/09/18) milk (Verified Allergy, Mild, GAS, 10/09/18) albuterol (Verified Allergy, Unknown, 10/09/18) amlodipine (Verified Allergy, Unknown, 10/09/18) clonidine (Verified Allergy, Unknown, 10/09/18) diazepam (Verified Allergy, Unknown, 10/09/18) diphenhydramine (Verified Allergy, Unknown, 10/09/18) melatonin (Verified Allergy, Unknown, 10/09/18) Uncoded Allergies: HEPARIN SODIUM (Allergy, Unknown, 09/08/18) NIFEDIPINE ER (Allergy, Unknown, 09/08/18) Past Surgical History Past Surgical Hx: other (Unknown) Social History Alcohol Use: none Smoking Status: Never smoker Drug Use: none Exam/Review of Systems Vital Signs Vitals Vital Signs Date Temp Pulse Resp B/P (MAP) Pulse Ox O2 O2 Flow FiO2 Time Delivery Rate 10/11/18 3.0 08:06 10/11/18 Nasal 08:00 Cannula 10/11/18 98.0 104 15 124/56 94 00:15 (78) 10/10/18 30 19:54 Intake and Output 10/10/18 10/10/18 10/11/18 1515:00 23:00 07:00 IntakeIntake Total 930 ml 199.06 ml 70.94 ml OutputOutput Total 0 ml 0 ml BalanceBalance 930 ml 199.06 ml 70.94 ml Medications Medications Current Medications Eye Lubricant (Artificial Tears Oph) 1 drop TID BOTH EYES Last administered on 10/11/18at 09:15; Admin Dose 1 DROP; Start 10/05/18 at 14:00 Morphine Sulfate/ Sodium Chloride 100 ml @ 1 mls/hr TITRATE IV Last administered on 10/11/18at 05:19; Admin Dose 11 MLS/HR; Start 10/10/18 at 17:30 Lorazepam (Ativan) 1 mg Q1H PRN IV AGITATION/ANXIETY Last administered on 10/10/18at 20:43; Admin Dose 1 MG; Start 10/10/18 at 16:53 CIRO ADAMS Oct 11, 2018 10:22
[2018-10-11] MEDS: LORAZEPAM 4 MG/ML VIAL IV PRN (11:44)
--- NOTE | 2018-10-11 15:51 | PN ---
Date/Time of Note Date/Time of Note DATE: 10/11/18 TIME: 15:50 Assessment/Plan VTE Prophylaxis Risk score (from Nsg)>0 risk: 9 SCD applied (from Nsg): Yes Pharmacological prophylaxis: heparin Lines/Catheters IV Catheter Type (from Nrsg): Central Line Central line still needed: No Urinary Cath still in place: No Assessment/Plan Hospital Course 78 yo female with h/o ESRD, PAD, DMII, very debilitated who presents wtih septic shock and mulitorgain failure now on inpatient hospice - morphine for comfort Result Diagram: 10/10/189 10/10/18448 Subjective 24 Hr Interval Summary Free Text/Dictation Agonal respirations Appears comfortable Exam/Review of Systems Vital Signs Vitals Vital Signs Date Temp Pulse Resp B/P (MAP) Pulse Ox O2 O2 Flow FiO2 Time Delivery Rate 10/11/18 3.0 08:06 10/11/18 94.0 81 16 107/53 92 08:00 (71) 10/11/18 Nasal 08:00 Cannula 10/10/18 30 19:54 Intake and Output 10/10/18 10/10/18 10/11/18 1515:00 23:00 07:00 IntakeIntake Total 930 ml 199.06 ml 70.94 ml OutputOutput Total 0 ml 0 ml BalanceBalance 930 ml 199.06 ml 70.94 ml Medications Medications Current Medications Eye Lubricant (Artificial Tears Oph) 1 drop TID BOTH EYES Last administered on 10/11/18at 14:16; Admin Dose 1 DROP; Start 10/05/18 at 14:00 Morphine Sulfate/ Sodium Chloride 100 ml @ 1 mls/hr TITRATE IV Last administered on 10/11/18at 11:43; Admin Dose 12 MLS/HR; Start 10/10/18 at 17:30 Lorazepam (Ativan) 1 mg Q1H PRN IV AGITATION/ANXIETY Last administered on 10/11/18at 11:44; Admin Dose 1 MG; Start 10/10/18 at 16:53 ADITI BOWDEN MD Oct 11, 2018 15:50
--- NOTE | 2018-10-11 18:07 | EN ---
Date/Time of Note Date/Time of Note DATE: 10/11/18 TIME: 18:07 Event Note Medicine Medicine Event Note Called to examine patient after . On my exam, pupils fixed nonreactive. Carotid pulses nonpalpable bilaterally. No heart or lung sounds on auscultation. Time of : 18:05 LORETTA CURIEL MD Oct 11, 2018 18:07
--- NOTE | 2018-10-12 12:23 | DES ---
Date/Time of Note Date/Time of Note DATE: 10/12/18 TIME: 12:22 Discharge/ Summary Admission/Discharge Info Admit Date/Time Oct 05, 2018 at 07:51 Final Diagnosis Septic shock Preliminary Cause of Septic shock Hospital Course 78 yo female with h/o ESRD, PAD, DMII, very debilitated who presents wtih septic shock and mulitorgain failure. patient was intubated for respiratory failure. Broad spectrum antibiotics were given. Vasopressors were administered. Dialysis was given. She was unable to be weaned from the ventilator. This was discussed with the family who opted for palliative extubation. This was perf ormed. Patient given morhpine for comfort and . ADITI BOWDEN MD Oct 12, 2018 12:23
== END 2018-10-11 18:05 | disposition expired | DRG 870 ==
LOC: E/R 06:46 → ICU 07:51 → PP2 10-11 00:10 → UNDODISIN 10-11 18:05
PROVIDERS: ADMIT Family Medicine; ATTEND Internal Medicine
PROC: 5A1955Z Respiratory Ventilation, Greater than 96 Consecutive Hours (ICD-10-PCS; principal; 2018-10-05)
PROC: 0BH17EZ Insertion of Endotracheal Airway into Trachea, Via Natural or Artificial Opening (ICD-10-PCS; 2018-10-05)
PROC: 5A12012 Performance of Cardiac Output, Single, Manual (ICD-10-PCS; 2018-10-05)
PROC: 5A1D70Z Performance of Urinary Filtration, Intermittent, Less than 6 Hours Per Day (ICD-10-PCS; 2018-10-08)
PROC: 30233N1 Transfusion of Nonautologous Red Blood Cells into Peripheral Vein, Percutaneous Approach (ICD-10-PCS; 2018-10-08)
DX: A41.9 Sepsis, unspecified organism (principal); J96.01 Acute respiratory failure with hypoxia; L89.154 Pressure ulcer of sacral region, stage 4; R65.21 Severe sepsis with septic shock; N18.6 End stage renal disease; J18.9 Pneumonia, unspecified organism; R53.2 Functional quadriplegia; G93.41 Metabolic encephalopathy; I12.0 Hypertensive chronic kidney disease with stage 5 chronic kidney disease or end stage renal disease; B37.49 Other urogenital candidiasis; G93.1 Anoxic brain damage, not elsewhere classified; Z99.2 Dependence on renal dialysis; Z66 Do not resuscitate; E11.22 Type 2 diabetes mellitus with diabetic chronic kidney disease; E83.39 Other disorders of phosphorus metabolism; E11.51 Type 2 diabetes mellitus with diabetic peripheral angiopathy without gangrene; I46.9 Cardiac arrest, cause unspecified; D63.1 Anemia in chronic kidney disease; E03.9 Hypothyroidism, unspecified; R53.81 Other malaise; M62.50 Muscle wasting and atrophy, not elsewhere classified, unspecified site; Z51.5 Encounter for palliative care
CPT/HCPCS: 31500; 36415; 36430; 36600; 70450; 71045; 80048; 81001; 82550; 82553; 82803; 82962; 83605; 83735; 84100; 84443; 84484; 85025; 85610; 85730; 86850; 86900; 86901; 86920; 87040; 87070; 87081; 87086; 87340; 90935; 92950; 93005; 94002; 94003; 94660; 94770; 96374; C9113; J0171; J0278; J0692; J1450; J1644; J1815; J2060; J2185; J2270; J2274; J2543; J2997; J3370; J7030; J7040; J7042; J7050; P9016